=== PATIENT | male | born 1975 | race Caucasian/White ===

== ENCOUNTER 2023-04-22 14:49 | Outpatient (OUT) | payer OTHER, SELFPAY ==
--- NOTE | 2023-04-22 14:54 | PM.CN ---
Consult Note: HPI Data of Consult Patient: known to practice within the last 3 years Requesting Physician: Yesi Caballero NP Primary Care Provider: Av Caro MD Consult Narrative Reason for consult: f/u Narrative: Fabian Melgar a pleasat 47 year old male presents for evlaution of chronic low back and left hip pain. Patient has had success with previous lumbar ESIs and medication therapy. Increase in pain over the last few months and increased more so the past few weeks failing to respond to current medication therapy and HEP/stretching. Patient would like to discuss additional injection therapy today. cc:: CC: Yesi Caballero NP Review of Systems ROS Status of ROS 10 or more systems reviewed and unremarkable except as noted in history and below Musculoskeletal Reports: back pain and joint pain Exam Constitutional Documenting provider has reviewed patient's vital signs: yes Common normals: no apparent distress, oriented x3, healthy appearing, alert and well nourished General appearance: cooperative HENMT Common normals: normocephalic, hearing grossly normal bilaterally and moist oral mucous membranes Head and scalp: normocephalic Eye Common normals: PERRL Pupil: PERRL Neck & C-Spine Common normals: full ROM General: normal visual inspection Chest Common normals: inspection of chest normal Respiratory Common normals: normal respiratory effort, no retractions and no use of accessory muscles Back & Pelvis Lumbar spine/lower back: pain with ROM and straight leg raise positive left Sacroiliac joints: SI joint(s) abnormal Other: left sided intermittent radiculopathy and constant low back pain radiating into buttocks and posterior thigh. has noticed intermittent numbness and weakness to LLE left SIJ tender over PSIS, positive gaenslens, thigh thrust, and fabers manuevers. Neuro Common normals: oriented x3, CN's II-XII intact bilaterally, moves all extremities, no focal motor deficits, no sensory deficits noted and deep tendon reflexes 2+ bilaterally Sensorium/orientation: alert Motor exam: strength 5/5 throughout and no movement abnormalities noted Psych Common normals: mental status grossly normal, thought process normal, cooperative, affect normal, speech normal and activity/motor behavior normal Speech: normal speech Thought process: normal thought process Results Additional Findings Additional findings: I have checked an OARRS report on this patient today and there are no aberrancies noted in the prescribing history.?? A drug screen was completed and reviewed within the last year, and if there has not been a drug screen completed we ordered one today to monitor higher risk, state monitored pain medication use. As part of providing excellent, safe, comprehensive care, the following was completed at our patient's visit: 1. A medication reconciliation and review to ensure accurate knowledge of current/active medications, including asking our patients to inform us about any zbax-vak-vuvpoup medications or herbal remedies/nutritional supplements/alternative remedies. 2. A review to specifically ensure our patients have had annual screening for: elevated body mass index (BMI), tobacco use, screening for depression, and screening for unhealthy alcohol use. When screening is concerning, patients are provided with education and the specific recommendation to discuss the concerning health issue and treatment options with their primary care provider. Assessment and Plan Assessment and Plan (1) Lumbar neuritis: Assessment and Plan: We discussed the risks and benefits of the procedure with the patient, and we are NOT planning on using sedation as outlined in the guidelines from Medicare unless there is a documented reason that sedation would be strongly recommended.?? The procedure will be completed under fluoroscopic guidance. (2) Sacroiliitis: Plan Left L3-4 L4-5 TFESI followed by left SIJ injection two weeks after based on symptom findings and previous xray imaging stop diclofenac, start celebrex 100mg BID for 7 days then celebrex 100mg QD-BID PRN continue HEP and stretching program refill and continue baclofen f/u after injections
== END 2023-04-22 14:50 | disposition home or self-care (01) ==
LOC: PM 14:49
PROVIDERS: PCP Family Medicine; Visit Provider Nurse Practitioner
DX: M54.16 Radiculopathy, lumbar region (principal); M46.1 Sacroiliitis, not elsewhere classified
CPT/HCPCS: G0463

== ENCOUNTER 2023-05-18 07:04 | Day surgery (SDC) | payer OTHER, SELFPAY ==
[2023-05-18 07:26] VITALS: BP 115/68; PULSE 83; RESP 16; TEMP 36.3; O2SAT 100
[2023-05-18 07:47] VITALS: BP 118/67; PULSE 69; RESP 16; O2SAT 99
[2023-05-18] MEDS: BUPIVACAINE HCL 0.25% PF 25 MG/10 ML VIAL 2 ML INJ (07:49)
[2023-05-18] MEDS: IOHEXOL 240 MG/ML - 10 ML VIAL INJ (07:49)
[2023-05-18] MEDS: LIDOCAINE HCL 2% PF 100 MG/5 ML VIAL 3 ML INJ (07:50)
[2023-05-18] MEDS: TRIAMCINOLONE ACETONIDE 40 MG/ML VIAL 80 MG INJ (07:50)
[2023-05-18 07:51] VITALS: BP 111/62; PULSE 66; RESP 16; O2SAT 97
--- NOTE | 2023-05-18 07:51 | P.ON_ITS ---
Date of procedure: 05/18/23 Pre-op diagnosis: Lumbar stenosis with neurogenic claudication Post-op diagnosis: same as pre-op Procedure: Procedure: Left L3-4, L4-5 transforaminal epidural steroid injection Medications: Bupivacaine 0.25% 2cc, kenalog 80mg The patient was seen and examined in the preoperative holding area.? Informed consent was obtained and placed on the chart.? Patient was brought to the medical procedure unit and placed in the prone position where a timeout was completed verifying the correct patient, procedure site, position, and planned special equipment using sterile aseptic technique.? Under direct fluoroscopic visualization a 25-gauge Quincke tipped spinal needle was advanced to the designated neural foramen where contrast dye was injected to show adequate spread.? The needle was inserted at level left L3-4. There was no evidence of vascular or adverse uptake.? Epidural spread was appreciated.? The above- mentioned injectate was then placed in a 1.5 mL aliquot preceded by negative aspiration.? The needle was removed. The needle was inserted and the procedure repeated at level left L4-5.? The surgery site was covered.? Patient was taken to the postprocedural recovery area and monitored for an appropriate length of time before found suitable for discharge in the accompaniment of a responsible adult. Anesthesia: Local Surgeon: Almaz Brooke Pathology: none sent Condition: stable Disposition: no change
== END 2023-05-18 07:56 | disposition home or self-care (01) ==
PROVIDERS: PCP Family Medicine; Visit Provider Anesthesiology
DX: M48.062 Spinal stenosis, lumbar region with neurogenic claudication (principal)
CPT/HCPCS: 64483; 64484; Q9966

== ENCOUNTER 2023-06-01 07:24 | Day surgery (SDC) | payer OTHER, SELFPAY ==
[2023-06-01 07:30] VITALS: BP 113/72; PULSE 72; RESP 16; TEMP 36.2; O2SAT 100
[2023-06-01 08:16] VITALS: BP 111/56; PULSE 62; RESP 18; O2SAT 94
[2023-06-01] MEDS: TRIAMCINOLONE ACETONIDE 40 MG/ML VIAL 80 MG INJ (08:18)
[2023-06-01] MEDS: BUPIVACAINE HCL 0.25% PF 25 MG/10 ML VIAL 2 ML INJ (08:18)
[2023-06-01] MEDS: IOHEXOL 240 MG/ML - 10 ML VIAL INJ (08:18)
[2023-06-01] MEDS: LIDOCAINE HCL 2% PF 100 MG/5 ML VIAL 3 ML INJ (08:18)
--- NOTE | 2023-06-01 08:19 | W.PM.PROCNOT ---
Date of procedure: 06/01/23 Pre-op diagnosis: Left sacroiliitis Post-op diagnosis: same as pre-op Procedure: Procedure: Left block of the nerve innervating the sacroiliac joint Medications: Bupivacaine 0.25% 3cc, kenalog 40mg After informed consent was obtained, the patient was brought to the medical procedure unit and placed in the prone position, when a timeout was completed verifying correct patient, procedure, site, positioning, implant, and/or special equipment.? The skin overlying the area was prepped and draped in standard sterile fashion using alcohol.? A 25-gauge needle was inserted towards the left nerve innervating the sacroiliac joint under direct fluoroscopic imaging.? Needle tip was advanced until the nerve was encountered.? We instilled a total of 3 mL of solution.? Postoperatively needles were removed.? The patient tolerated the procedure well without complication.? The patient reported reduction in pain symptoms postoperatively. Anesthesia: Local Surgeon: Almaz Brooke Pathology: none sent Condition: stable Disposition: no change
[2023-06-01 08:22] VITALS: BP 112/62; PULSE 60; RESP 18; O2SAT 98
== END 2023-06-01 08:24 | disposition home or self-care (01) ==
PROVIDERS: PCP Family Medicine; Visit Provider Anesthesiology
DX: M46.1 Sacroiliitis, not elsewhere classified (principal)
CPT/HCPCS: 27096; 64451; Q9966

== ENCOUNTER 2023-06-17 15:00 | Outpatient (OUT) | payer OTHER, SELFPAY ==
--- NOTE | 2023-06-17 15:21 | P.CN_ITS ---
Consult Note: HPI Data of Consult Patient: known to practice within the last 3 years Requesting Physician: Yesi Caballero NP Primary Care Provider: Av Caro MD Consult Narrative Reason for consult: f/u Narrative: Fabian Melgar a pleasant 47 year old male presents for evaluation and management of low back pain with radiculopathy. Pain 0/10. Feels 95% ongoing pain relief and functional improvement after Left SI nerve blocka nd left L3/4 4/5 TFESI. JERI today 0%. cc:: CC: Yesi Caballero NP Review of Systems ROS Status of ROS 10 or more systems reviewed and unremarkable except as noted in history and below [facility] Medical History (Updated 05/08/23 @ 10:09 by Maggi Puente) Back pain ?M54.9 - Dorsalgia, unspecified (ICD-10) Meds Home Medications and Allergies Home Medications Medication Instructions Recorded Confirmed Type cyclobenzaprine 10 mg tablet 10 mg PO BID 05/18/23 06/01/23 History Allergies Allergy/AdvReac Type Severity Reaction Status Date / Time No Known Drug Allergies Allergy Verified 05/18/23 07:22 Exam Constitutional Documenting provider has reviewed patient's vital signs: yes Common normals: no apparent distress, oriented x3, healthy appearing, alert and well nourished General appearance: cooperative HENMT Common normals: normocephalic, hearing grossly normal bilaterally and moist oral mucous membranes Head and scalp: normocephalic Eye Common normals: PERRL Pupil: PERRL Neck & C-Spine Common normals: full ROM General: normal visual inspection Chest Common normals: inspection of chest normal Respiratory Common normals: normal respiratory effort, no retractions and no use of accessory muscles Back & Pelvis Common normals: no CVA tenderness, thoracic and lumbar spine normal to inspection, no thoracic nor lumbar tenderness and thoraco-lumbar ROM normal Neuro Common normals: oriented x3, CN's II-XII intact bilaterally, moves all extremities, no focal motor deficits, no sensory deficits noted and deep tendon reflexes 2+ bilaterally Sensorium/orientation: alert Motor exam: strength 5/5 throughout and no movement abnormalities noted Psych Common normals: mental status grossly normal, thought process normal, cooperative, affect normal, speech normal and activity/motor behavior normal Speech: normal speech Thought process: normal thought process Assessment and Plan Assessment and Plan (1) Lumbar neuritis: (2) Sacroiliitis: Plan 95% pain relief and functional improvement ongoing f/u as needed
== END 2023-06-17 15:01 | disposition home or self-care (01) ==
PROVIDERS: PCP Family Medicine; Visit Provider Nurse Practitioner
DX: M54.16 Radiculopathy, lumbar region (principal); M46.1 Sacroiliitis, not elsewhere classified
CPT/HCPCS: G0463

== ENCOUNTER 2024-02-03 10:13 | Outpatient (OUT) | payer OTHER, SELFPAY ==
--- OUTSIDE RECORDS SUMMARY | 2024-02-03 10:24 | XMS_ITS | CCD ---
Author Organization [facility] Care Team Providers Care Technician Submarine [employer] Equipment Name Role Phone AIMEE .VANESSA Consulting Unavailable CHILDERS ., DR RUSTY Patel Attending Unavailable CHILDERS ., DR RUSTY Patel Admitting Unavailable HOY ., DR ARTIS Primary Care Unavailable CHILDERS ., DR RUSTY Patel Consulting Unavailable CHILDERS ., DR RUSTY Patel Attending Unavailable CHILDERS ., DR RUSTY Patel Admitting Unavailable HOY ., DR ARTIS Primary Care Unavailable HOY ., DR ARTIS Primary Care Unavailable LAKSHMIPATHY ., ERWIN Admitting Nydia vailable LAKSHMIPATHY ., ERWIN Attending Nydia vailable YU ., VANESSA Consulting Unavailable CHILDERS ., DR RUSTY Patel Attending Unavailable CHILDERS ., DR RUSTY Patel Admitting Unavailable HOY ., DR ARTIS Primary Care Unavailable CHILDERS ., DR RUSTY Patel Admitting Unavailable CHILDERS ., DR RUSTY Patel Consulting Unavailable CHILDERS ., DR RUSTY Patel Attending Unavailable HOY ., DR ARTIS Primary Care Unavailable Ephraim Thapa Consulting Unavailable CHILDERS ., DR RUSTY Patel Attending Unavailable CHILDERS ., DR RUSTY Patel Admitting Unavailable HOY ., DR ARTIS Primary Care Unavailable CHILDERS ., DR RUSTY Patel Consulting Unavailable HOY ., DR ARTIS Primary Care Unavailable EMMA MURO Admitting Unavailable EMMA MURO Attending Unavailable YU .VANESSA Consulting Unavailable CHILDERS ., DR RUSTY Patel Attending Unavailable CHILDERS ., DR RUSTY Paetl Admitting Unavailable HOY ., DR ARTIS Primary Care Unavailable Edwardo LUND, Almaz Palacio Attending Unavailable Edwardo LUND, Almaz Palacio Attending Unavailable Obi KENDRICK Attending Unavailable Steff Blankenship Referring Unavailable Problems Active Problems Problem Classification Problem Date Documented Date Episodic/Chronic Spondylosis; intervertebral disc disorders; other back problems (4 sources) Other spondylosis with radiculopathy, lumbar region; Translations: [OTH SPONDYLS RADICULOPATHY LUMB RGN] Onset: 04-29-2022 Chronic Unclassified (1 source) LOW BACK PAIN, UNSPECIFIED; Translations: [LOW BACK PAIN, UNSPECIFIED] Onset: 09-08-2022 Past or Other Problems Problem Classification Problem Date Documented Da te Episodic/Chronic Other connective tissue disease (1 source) Pain in left leg; Translations: [PAIN IN LEFT LEG] Onset: 05-01-2022 Episodic Residual codes; unclassified (4 sources) Procedure and treatment not carried out due to patient leaving prior to being seen by health care provider; Translations: [PROC AND TX NOT CARRIED OUT PT LEAVE] Onset: 03-29-2022 Episodic Spondylosis; intervertebral disc disorders; other back problems (4 sources) Radiculopathy, lumbar region; Translations: [RADICULOPATHY LUMBAR REGION] Onset: 09-04-2022 Episodic Results Test Name Value Interpretation Reference Range Facil ity Physician Referralon 024 Physician Referral [id number]. 00TIFF Normal [facility] XR LSPINE W_OBLS AND FLEX_EX Ton 04-29-2022 XR LSPINE W_OBLS AND FLEX_EXT EXAMINATION: XR LSPINE W_OBLS AND FLEX_EXT HISTORY: Lumbar radiculopathy , chronic COMPARISON: No relevant comparison available. FINDINGS: BONES: Mild grade 1 retrolisthesis L4 on 5, unchanged between neutral, flexion, and extension positions. Mild degenerative facet arthropathy L4-L5, L5-S1. DISC SPACES: Mild narrowing L4-L5. Moderate narrowing L5-S1. PARASPINOUS: No paraspinous abnormality is seen. OTHER: Negative. IMPRESSION: 1. Mild to moderate degenerative changes of the lower lumbar spine. Electronically authenticated by: EPHRAIM THAPA Date: 2022-04-29 13:15 Normal [facility] XR Finger Righton 03-30-2022 XR Finger Right EXAM: CLINICAL HISTORY: __ FINDINGS: Bone mineralization is normal. No acute fracture, dislocation or significant arthritic changes are seen. No significant joint space effusion is present. Soft tissues are without abnormal calcifications or radiopaque foreign body. No active erosive changes are identified. IMPRESSION: Normal skeletal appearance. 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 Facili ty:[facility] Start: 12-04-2022 ambulatory VANESSA YU . Facility:[facility] Start: 09-04-2022 End: 09-05-2022 ambulatory VANESSA YU . Facility:[facility] Start: 06-05-2022 End: 06-06-2022 ambulatory VANESSA YU . Facility:[facility] Start: 05-13-2022 End: 05-13-[address] RUSTY CHILDERS . Facility:[facility] Start: 04-29-2022 End: 04-30-2022 ambulatory Ephraim Thapa Facility:[facility] Start: 03-29-2022 End: 03-30-[address] STEFF BLANKENSHIP . Facility:[facility] Payers Date Payer Category Payer Unknown [id number] 2023 Unknown 2022 Private Health Insurance 2010 Unknown [id number] 1977 Unknown [id number] .. [id number] 1977 Unknown [id number] 1977 Unknown [id number] ..[id number] 1977 Unknown [id number] ..[id number] 1977 Unknown [id number] ..[id number] 1977 Unknown [id number] 2.16.84 [id number] 1977 Unknown [id number] 2.16.84 [id number] 1977 Unknown [id number] 2.16.84 [id number] 1977 Unknown [id number] 2.16. [id number] 1977 Unknown [id number] 2.16. [id number] 1977 Unknown [id number] 2.16.8 [id number] 1977 Unknown [id number] 2.16.8 [id number] 1959 Private Health Insurance [id number] Consultation note 09-04-2022 Note Date & Type Note Facility 09-04-2022 Note CONSULTATION CONSULTATION DATE: 09/04/2022 HISTORY OF PRESENT ILLNESS: This is a pleasant and active 46-year-old gentleman who returns to the Pain Clinic for a three month follow up for his lower back pain. He was last seen at the end of May, which was also a status post left L5 transforaminal epidural steroid injection. He did get great relief from that and it is generally ongoing. At rest, his pain is 0/10. With physical activity, it increases to 2/10. Prolonged sitting, bending and lifting does aggravate his pain. He does take diclofenac 75 mg daily, which has been greatly beneficial. He does state, in the evening, after being at work and the kids' games, he feels back tightness. 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 He has patchy hypoesthesia to his left leg to the level of the knee. He denies any vasomotor weakness. Patient's REVIEW OF SYSTEMS / PAST MEDICAL HISTORY / ALLERGIES and IMAGES have been reviewed and noted on the chart. PHYSICAL EXAM: VITAL SIGNS: Blood pressure 129/72, heart rate is 85. Temperature is 98. He is 5'11 , weighs 73 kg. GENERAL IMPRESSION: Pleasant, appropriate, in no acute distress. FOCUSED EXAM - BACK: Range of motion is functional in lateral rotation and flexion/extension. Paravertebral muscles are non-spasmodic. Slight tenderness to the left gluteal muscle. Aura's point is non-tender bilaterally. Negative FABERs and compression test. MUSCULOSKELETAL: Motor is 5/5 bilaterally. Patient with good muscle tone. Patient walks unassisted with a stable gait. NEUROLOGICALLY: Patchy hypoesthesia noted along the L5 distribution to the left, just to the level of the knee. Reflexes are +2 bilaterally. DIAGNOSIS: Lower back pain, lumbar radiculitis. PLAN: We will refill his diclofenac 75 mg but will increase it to twice a day. He is instructed to take his second dose around supper time, at the conclusion of his work day. We will refill his baclofen 10 mg q.h.s. and he was highly encouraged to take that nightly. Stretches were demonstrated and recommended as well. We will see the patient in three months' time, unless otherwise indicated. Patient agrees with this plan. [facility] Consultation note 06-05-2022 Note Date & Type Note Facility 06-05-2022 Note CONSULTATION CONSULTATION DATE: 06/05/2022 HISTORY OF PRESENT ILLNESS: This is a 46-year-old male returning to the clinic status post left transforaminal epidural steroid injection at the level of L5 completed on 05/13/2022. The patient states it afforded him 80% relief in he is overall pleased. 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 He does take diclofenac 75 mg b.i.d., which he states does help with the back pain. As the day progresses, he does feel a slight twinge in his left lower side. He describes it as a deep ache. He rates his pain 1/10 today at rest. Patient's REVIEW OF SYSTEMS / PAST MEDICAL HISTORY / ALLERGIES and IMAGES have been reviewed and they are noted on the chart. PHYSICAL EXAM: VITAL SIGNS: Blood pressure 119/65, heart rate is 72. He is 5'11 and weighs 76 kg. GENERAL IMPRESSION: Pleasant, appropriate, no acute distress. FOCUSED EXAM - BACK: Paravertebral muscles are non-spasmodic. Range of motion is functional in lateral rotation and flexion/extension. Mild tenderness to left Aura's point. Negative FABERs and compression test. Slight radiation to the lateral aspect of his left lower extremity, to the mid femur location. MUSCULOSKELETAL: Motor is 5/5. Good muscle tone. Patient walks with a slow, steady gait. NEUROLOGICALLY: Patchy hypoesthesia noted along L5 dermatome on the left lower extremity to the level of the mid thigh. Patellar and Achilles reflexes are +2 bilaterally. DIAGNOSIS: Lumbar radiculitis and lower back pain. PLAN: We will make an addition with baclofen 10 mg q.h.s. today, in addition to maintaining his diclofenac at 75 mg b.i.d. I did recommend magnesium glycinate 400 mg daily as well as continued use with his inversion table. Patient is in agreement with this, and we will see him in three months' time unless otherwise indicated. [facility] Consultation note 04-29-2022 Note Date & Type Note Facility 04-29-2022 Note CONSULTATION CONSULTATION DATE: 04/29/2022 CHIEF COMPLAINT: Low back pain, left leg pain. 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 Over the last 3-4 months, the patient's pain has been gradually increasing; the worst over the last two months. The patient is a very active individual and this is his busy construction season doing deepali, etc. The patient's main complaint is numbness along the left leg, radiating down to his left foot, the middle toes. The patient also has low back pain that radiates into his gluteal region. The patient reports the pain as a 7/10, an achy, throbbing pain. Activities such as standing, walking, transitioning, lifting; a.m. pain is worse compared to p.m., climbing stairs, bending aggravate the patient's pain. The patient had undergone a remote diskectomy in 2005. The patient currently takes ibuprofen 800 mg t.i.d. and also Tylenol on an intermittent basis. The patient's PAST MEDICAL HISTORY / SURGICAL HISTORY / REVIEW OF SYSTEMS are noted on the chart, along with the MEDICATION LIST / ALLERGIES and X-RAY dated 2019 report. The patient is using the inversion table; however, it does not seem to help at present. PHYSICAL EXAMINATION: Upon physical examination, this is a pleasant, cooperative gentleman, who does not appear to be in any acute distress. VITAL SIGNS: Stable at 128/78 with a heart rate of 73. At a height of 5'11 , the patient has an endomorphic structure. BACK: With regards to the patient's low back, extension, compression, direct palpation along the posterior elements on the left hand side aggravate the patient's pain concordant with facet arthropathy, lumbar spondylosis, more prominent on the left hand side compared to the right hand side. This is prominent at the level of L5-S1 and also at the level of L3-4. EXTREMITIES: No pedal edema is noted. MUSCULOSKELETAL: Intact in the lower extremity at 5/5. NEUROLOGICALLY: Hypoesthesia is present along the L5 distribution on the left hand side. PSYCHIATRICALLY: Affect is appropriate. IMPRESSION: Low back pain, left lower extremity pain, lumbar radiculitis L5, lumbar facet arthrosis, spondylosis. PLAN: Given the patient's activity level, we will look to get an x-ray, flexion/extension, of his lumbar spine. The patient will be changed over from ibuprofen to diclofenac 75 mg. The patient will be scheduled for a transforaminal epidural steroid injection on the left hand side at the level of L5. The patient understands and would like to proceed. CC: Steff Blankenship M.D. [facility] Summary Purpose Family History No Family History Records FoundNo Family History Records FoundNo Family History Records FoundNo Family History Records Found Advance Directives No Advanced Directives Records FoundNo Advanced Directives Records FoundNo Advanced Directives Records FoundNo Advanced Directives Records Found Additional Source Comments (unrecognized sect ion and content) No Status Records FoundNo Status Records FoundNo Status Records FoundNo Status Records Found INFORMATION SOURCE (unrecogn ized section and content) DATE CREATED AUTHOR 04/03/2022 [facility] dical Specialist DATE CREATED AUTHOR AUTHOR'S ORGANIZ ATION 12/08/2022 [facility] DATE CREATED AUTHOR AUTHOR'S ORGANIZ ATION 11/01/2023 [facility] DATE CREATED AUTHOR AUTHOR'S ORGANIZ ATION 01/31/2024 [facility] FOR RECORDS PERTAINING TO PATIENTS WHO ARE OR HAVE BEEN ENROLLED IN A CHEMICAL DEPENDENCY/SUBSTANCEABUSE PROGRAM, SOME INFORMATION MAY BE OMITTED. This clinical summary was aggregated from multiple sources. Caution should be exercised in using it in the provision of clinical care. This summary normalizes information from multiple sources, and as a consequence, information in this document may materially change the coding, format and clinical context of patient data. In addition, data may be omitted in some cases. CLINICAL DECISIONS SHOULD BE BASED ON THE PRIMARY CLINICAL RECORDS. [facility] [employer] [facility]. provides no warranty or guarantee of the accuracy or completeness of information in this document.
[2024-02-03 10:59] LABS: Basophils Percent Auto 0.6 % (0.2-2.0); Eosinophils Absolute Auto 0.2 10^3/uL (0.0-0.7); Eosinophils Percent Auto 2.7 % (0.9-7.0); Hematocrit 44.7 % (42.0-54.0); Immature Granulocytes Abs Auto 0.02 10^3/uL (0.00-0.03); Immature Granulocytes Pct Auto 0.3 % (0.0-0.5); Lymphocytes Absolute Auto 1.8 10^3/uL (1.2-3.8); Mean Corpuscular HGB Conc 33.6 g/dL (29.9-35.2); Mean Corpuscular Hemoglobin 30.2 pg (25.9-34.0); Mean Corpuscular Volume 90.1 fL (80.0-94.0); Mean Platelet Volume 11.2 fL (9.5-13.5); Monocytes Absolute Auto 0.4 10^3/uL (0.3-0.8); Monocytes Percent Auto 5.4 % (1.7-12.0); Neutrophils Absolute Auto 4.6 10^3/uL (1.4-6.5); Platelet Count 158 10^3/uL (150-450); Red Blood Count 4.96 10^6/uL (4.70-6.10); Red Cell Distribution Width 12.3 % (11.0-15.0)
[2024-02-03 11:48] LABS: Estimated Average Glucose 108 mg/dL; Glycohemoglobin A1C 5.4 % (4.5-6.2)
[2024-02-03 11:49] LABS: Alanine Aminotransferase 42 U/L (16-63); Albumin Globulin Ratio 1.2; Albumin Level 3.9 g/dL (3.4-5.0); Alkaline Phosphatase 58 U/L (46-116); Anion Gap 12.6; Aspartate Amino Transferase 19 U/L (15-37); BUN Creatinine Ratio 13.6; Bilirubin Total 0.5 mg/dL (0.2-1.0); Calcium 8.6 mg/dL (8.5-10.1); Carbon Dioxide 27.5 mmol/L (21.0-32.0); Chloride 103 mmol/L (98-107); Chol HDL Ratio 3.6; Cholesterol 163 mg/dL (<=200); Estimated GFR (African America >60 (>=60); Estimated GFR (Non-African Ame >60 (>=60); Globulin 3.3 g/dL; Glucose 105 mg/dL (74-106); HDL Cholesterol 45 mg/dL (40-60); LDL Cholesterol Calculated 98.8 mg/dL; Potassium 4.1 mmol/L (3.5-5.1); Sodium 139 mmol/L (136-145); Total Protein 7.2 g/dL (6.4-8.2); Triglycerides 96 mg/dL (<=150); VLDL CHOLESTEROL 19.2 mg/dL
[2024-02-03 14:04] LABS: Prostate Specific Antigen Scrn 0.78 ng/mL (<=4.00)
== END 2024-02-03 10:14 | disposition home or self-care (01) ==
LOC: LAB 10:15
PROVIDERS: PCP Family Medicine; Visit Provider Family Medicine
DX: Z00.00 Encounter for general adult medical examination without abnormal findings (principal)
CPT/HCPCS: 36415; 80053; 80061; 83036; 85025; G0103

== ENCOUNTER 2024-04-20 12:40 | Outpatient (OUT) | payer OTHER, SELFPAY | END 2024-04-20 12:41 | disposition home or self-care (01) | LOC: PST 12:40 | PROVIDERS: PCP Family Medicine; Visit Provider Surgery | DX: Z01.818 Encounter for other preprocedural examination (principal); Z12.11 Encounter for screening for malignant neoplasm of colon; Z80.0 Family history of malignant neoplasm of digestive organs ==

== ENCOUNTER 2024-04-27 07:11 | Day surgery (SDC) | payer OTHER, SELFPAY ==
--- NOTE | 2024-04-27 | OP_ITS ---
OPERATION DATE: 04/27/2024 PREOPERATIVE DIAGNOSIS: Family history of colon cancer, as well as colorectal screening. POSTOPERATIVE DIAGNOSIS: Diminutive 2 mm sigmoid polyp. PROCEDURE: Colonoscopy to cecum with cold forceps polypectomy x1. SURGEON: Fabian De La Paz M.D. ANESTHESIA: Monitored anesthesia care. ESTIMATED BLOOD LOSS: Less than 1 mL. INDICATIONS AND CONSENT: Patient is a 48-year-old male presents for colorectal screening. He does have a family history of colon cancer in his father. Indications, risks, benefits, alternatives of proceeding with colonoscopy were explained extensively to the patient, including the risks of bleeding, colon perforation or anesthetic complications. All of his questions were answered. Informed consent was obtained. PROCEDURE: Patient brought to the operating room, placed in the left lateral decubitus position. Monitored anesthesia care was provided. Rectal exam was performed which revealed no masses or blood. The scope was then inserted into the anal canal. Under direct visualization was advanced. It was advanced to the cecum where cecal markings were clearly identified. There was noted to be a good prep. Upon withdrawal of the scope, mucosal surfaces were carefully examined. There were no mass lesions or inflammatory changes. No significant diverticulosis. Within the sigmoid colon, there was noted to be a 2 mm sessile polyp that was removed with cold biopsy forceps with good hemostasis. The scope was retroflexed in the anal canal. There was no significant hemorrhoidal disease. Scope was then withdrawn. Patient tolerated procedure well, was sent to recovery room in good condition. f/u colonoscopy likely in 5 years, but will depend on pathology report. CC: Christo Simth
--- OUTSIDE RECORDS SUMMARY | 2024-04-27 07:14 | XMS_ITS | CCD ---
Author Organization [facility] Care Team Providers Care Clinical Research Analyst Name Role Phone YU ., VANESSA Consulting Unavailable CHILDERS ., DR RUSTY Patel Attending Unavailable CHILDERS ., DR RUSTY Patel Admitting Unavailable HOY ., DR ARTIS Primary Care Unavailable CHILDERS ., DR RUSTY Patel Consulting Unavailable CHILDERS ., DR RUSTY Patel Attending Unavailable CHILDERS ., DR RUSTY Patel Admitting Unavailable HOY ., DR ARTIS Primary Care Unavailable HOY ., DR ARTIS Primary Care Unavailable LAKSHMIPATHY ., NARFREEDOM Admitting Nydia vailable LAKSHMIPATHY ., ERWIN Attending [...] MURO Admitting Unavailable EMMA MURO Attending Unavailable AIMEE .VANESSA Consulting Unavailable CHILDERS ., DR RUSTY Patel Attending Unavailable CHILDERS ., DR RUSTY Patel Admitting Unavailable HOY ., DR ARTIS Primary Care Unavailable Edwardo LUND, Almaz Palacio Attending Unavailable Edwardo LUND, Almaz Palacio Attending Unavailable Steff Caro Primary Care Physician [phone] Ondina Nelson Unavailable Unavailable Steff Caro Referring Unavailable Obi KENDRICK Attending Unavailable Steff Caro Referring Unavailable Obi KENDRICK Attending Unavailable Problems Active Problems Problem Classification Problem Date Documented Date Episodic/Chronic Allergic reactions (2 sources) Eczema 01-07-2024 Episodic Other screening for suspected conditions (not mental disorders or infectious disease) (1 source) Screening for malignant neoplasm of colon done; Translations: [Encounter for screening for malignant neoplasm of colon] Onset: 03-30-2024 Episodic Residual codes; unclassified (1 source) Family history of malignant neoplasm of digestive organ; Translations: [Family history of malignant neoplasm of digestive organs] Onset: 03-30-2024 Episodic Residual codes; unclassified (1 source) Family history of cancer of colon 03-30-2024 Episodic Spondylosis; intervertebral disc disorders; other back problems (4 sources) Other spondylosis with radiculopathy, lumbar region; Translations: [OTH SPONDYLS RADICULOPATHY LUMB RGN] Onset: 04-29-2022 Chronic Unclassified (1 source) LOW BACK PAIN, UNSPECIFIED; Translations: [LOW BACK PAIN, UNSPECIFIED] Onset: 09-08-2022 Unclassified (1 source) Patient encounter status 03-30-2024 Past or Other Problems Problem Classification Problem [...] Name Value Interpretation Reference Range Facil ity Ambulatory Visit Summaryon 0 03-30-2024 Ambulatory Visit Summary Ambulatory Visit Summary OBI MCEKON :1975 Visit Date:03/30/2024 Ambulatory Visit Instructions Your Care Team Attending Physician - AROLDO LUND, Obi Tirado Primary Care Physician - Vania LUND, Steff Referring Physician - Vania LUND, Steff Procedures Performed Colonoscopy, Lumbar discectomy. Discharge Vitals Heart Rate (Peripheral) 68 Respiratory Rate 16 Blood Pressure 116/64 Height 181 cm Height 71 in Weight 76.4 kg Weight 168.08 lb BMI 23.32 Allergies No Known Allergies Problems Ongoing - Any problem that you are currently receiving treatment for. Eczema Family history of colon cancer in father Patient Survey You may receive a survey via text or e-mail asking about your office visit. Please share your experience with us by completing your survey. We appreciate your feedback and thank you for choosing us for your care. Normal [facility] Physician Referralon 024 Physician Referral [phone] [id number]. 00TIFF Normal [facility] XR LSPINE W_OBLS AND FLEX_EX Ton 04-29-2022 [...] by: EPHRAIM THAPA Date: 2022-04-29 13:15 Normal [facility] XR Finger Righton 03-30-2022 XR Finger Right [...] by MURTAZA VILLASEÑOR on 03/30/2022 1036 Normal [facility] Lipstick Molder Vital Signs Date Time Vital Sign Value Performing Clinician Manav meier 03-30-2024 15:49-0400 Blood Pressure Location Obi KENDRICK [facility] 03-30-2024 15:49-0400 Diastolic blood pressure 64 mm[Hg] Obi KENDRICK [facility] 03-30-2024 15:49-0400 Heart rate 68 /min Obi ARLODO [place] 03-30-2024 15:49-0400 Respiratory rate 16 /min Obi GUGerson [facility] 03-30-2024 15:49-0400 Systolic blood pressure 116 mm[Hg] Obi GUL [facility] Encounters Encounter Date Encounter Type Care Provider Facility Start: 03-30-2024 End: 03-30-2024 ambulatory Steff Caro Facility:[facility] Start: 03-30-2024 End: 03-30-2024 Patient encounter procedure Obi Candida KENDRICK [facility] Start: 02-03-2024 End: 02-03-2024 [facility] Start: 02-03-2024 End: 02-03-2024 Patient encounter procedure Obi KENDRICK [facility] Start: 12-28-2023 ambulatory Steff Caro [facility] Start: 06-01-2023 End: 06-02-2023 ambulatory Almaz Brooke MD Facility: [facility] Start: 05-18-2023 End: 05-19-2023 ambulatory Almaz Brooke MD Facility: [facility] Start: 12-30-[address] STEFF CARO . Facili ty:[facility] Start: 12-04-2022 ambulatory VANESSA YU . Facility:[facility] Start: 09-04-2022 End: 09-05-2022 ambulatory VANESSA YU . Facility:[facility] Start: 06-05-2022 End: 06-06-2022 ambulatory VANESSA YU . Facility:[facility] Start: 05-13-2022 End: 05-13-[address] RUSTY CHILDERS . Facility:[facility] Start: 04-29-2022 End: 04-30-2022 ambulatory Ephraim Sagarcallie Facility:[facility] Start: 03-29-2022 End: 03-30-[address] STEFF CARO . Facility:[facility] Procedures Date Procedure Procedure Detail Performing Clinician Colonoscopy Obi KENDRICK Excision of lumbar i ntervertebral disc Obi KENDRICK Payers Date Payer Category Payer Unknown [id number] 2023 Unknown 2022 Private Health Insurance 2010 Unknown [id number] 1975 Unknown [id number] 2.16.84 [id number] 1975 Unknown [id number] 2.16.84 [id number] 1975 Unknown [id number] 2.16.84 [id number] 1975 Unknown [id number] 2.16.84 0.1.107160.3.579.2.593 1975 Unknown [id number] 2.16.84 0.1.035014.3.579.2.593 1977 Unknown [id number] 2.16.84 0.1.172983.3.579.2.593 1975 Unknown [id number] 2.16.84 0.1.309635.3.579.2.593 1975 Unknown [id number] 2.16.84 0.1.109255.3.579.2.593 1975 Unknown [id number] 2.16. 840.1.292682.3.579.2.196 1975 Unknown [id number] 2.16. 840.1.187714.3.579.2.196 1975 Unknown [id number] 2.16.8 40.1.342270.3.579.2.727 1975 Unknown [id number] 2.16.8 40.1.948875.3.579.2.727 1975 Unknown [id number] 2.16.8 40.1.657624.3.579.2.727 1957 Private Health Insurance [id number] Social History Date Type Detail Facility Tobacco smoking status No Smokin g Status Entered [facility] Sex Assigned At Male [facility] Start: 03-30-2024 Tobacco smoking status Heavy t obacco smoker (finding) [facility] Tobacco smoking status Never [facility] Functional Status Date Assessment Result Facility 03-30-2024 Functional Status N/A [facility] Clinical Note 03-30-2024 Note Date & Type Note Facility 03-30-2024 Note [facility] Surgery Offi ce/Clinic Note Chief Complaint consultation for colonoscopy HPI Staff 48 year old male presents on consultation from Dr. Caro for screening colonoscopy. Denies abdominal or rectal pain. No rectal bleeding or change in bowel habits. Denies nausea or vomiting. No unexplained weight loss. Reports previous colonoscopy completed while in his 30's- reported normal per patient. Father with history of colon cancer, diagnosed age 62. History of Present Illness 48 yo male referred for colorectal screening; denies change in bms or blood in stools, no abd complaints; no abd operations; last colonoscopy over 10 years ago; no asa or NSAID use; gkxe1kt daily; fmhx of colon cancer in patient's father, dx at age 62, no fmhx of IBD. Review of Systems PHQ Score Initial Depression Screen Score: 0 SCORE ROS - Provider Constitutional: no fever, no sweats, no weight loss. Eyes: no glasses, no blurred vision, no visual loss. ENMT: no dentures, no hoarseness, no swallowing difficulties, no hearing loss, no ear infection(s), no nose bleeds. Cardiovascular: normal blood pressure, no chest pain, regular heartbeat, no heart murmur. Respiratory: no shortness of breath, no cough, no asthma, no wheezing. Gastrointestinal: no nausea, no vomiting, no diarrhea, no constipation, no blood in stool, no change in bowel habits, no abdominal pain, no hepatitis. Genitourinary: no kidney stones, no urine infection, no dysuria. Musculoskeletal: no pain, no weakness. Skin: no changing moles, no rash, no skin lumps. Neurologic: no seizures, no epilepsy, no headache. Psychiatric: no emotional or psychiatric problem. Heme/Lymph: no bleeding problems, no anemia, no blood clots, no transfusions. Allergy/Immunologic: no swollen lymph nodes/glands, no IV drug abuse. Other: Additional ROS info: Except as noted in the above Review of Systems and in the History of Present Illness, all other systems have been reviewed and are negative or noncontributory. Physical Exam Vitals & Measurements HR: 68(Peripheral) RR: 16 BP: 116/64 HT: 71 in HT: 181 cm WT: 76.4 kg WT: 168.08 lb BMI: 23.32 HEENT: normal conjunctiva, sclera clear, no scleral icterus, EOM intact, PERRLA, oral mucosa moist without lesions. Neck: trachea midline, no mass, symmetric, no thyromegaly or nodules, no adenopathy Respiratory: lungs CTA, respirations non labored. Cardiovascular: regular rate and rhythm, no murmur, no pedal edema or varicosities. Gastrointestinal: soft, non distended, no tenderness, no masses, no palpable hernias, diastasis recti no, no hepatosplenomegaly; normal bs Lymphatic: no cervical adenopathy, no supraclavicular adenopathy. Musculoskeletal: normal gait, digits and nails without infection, nodes, cyanosis, clubbing. Skin: no rashes, no lesions, no ulcers, no subcutaneous nodules, induration. Psychiatric/Neuro: oriented to time, place, person, judgement normal, affect appropriate for age, insight intact, no focal deficits. Tests: , review of old records completed , Discussed surgical options, risks, and possible complications with patient. Assessment/Plan 1. Family history of colon cancer in father (Z80.0: Family history of malignant neoplasm of digestive organs) plan colonoscopy under anesthesia, informed consent obtained. 2. Screening for malignant neoplasm of colon (Z12.11: Encounter for screening for malignant neoplasm of colon) see #1 Follow-up No qualifying data available Problem List/Past Medical History Ongoing Eczema Family history of colon cancer in father Screening for malignant neoplasm of colon Historical No qualifying data Procedure/Surgical History Colonoscopy, Lumbar discectomy. Medications No active medications Allergies No Known Allergies Social History Alcohol - Denies Alcohol Use, 03/30/2024 Substance Abuse - Denies Substance Abuse, 03/30/2024 Tobacco 10 or more cigarettes (1/2 pack or more)/day in last 30 days Tobacco Use:. Never Smokeless Tobacco Use:. Cigarettes, 1 per day. Started age 15.0 Years. Yes, 03/30/2024 Family History Hypertension: Brother. Primary malignant neoplasm of colon: Father. 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 He has patchy hypoesthesia to [...] indicated. Patient agrees with this plan. [facility] Consultation note 06-05-2022 Note Date & Type [...] three months' time unless otherwise indicated. [facility] Consultation note 04-29-2022 Note Date & Type [...] and would like to proceed. CC: Steff Caro M.D. [facility] Evaluation + Plan note Note Date & Type Note Facility Evaluation + Plan note No data available for this section [facility] Hospital Discharge instructions Note Date & Type Note Facility Hospital Discharge instructions No data available for this section [facility] Progress note Note Date & Type Note Facility Progress note No data available for this section [facility] Summary Purpose Family History No Family History Records FoundNo Family History Records FoundNo Family History Records Found No data available for this section No data available for this section No Family History Records Found Advance Directives No Advanced Directives Records FoundNo Advanced Directives Records FoundNo Advanced Directives Records FoundNo Advanced Directives Records Found Additional Source Comments (unrecognized sect ion and content) No Status Records FoundNo Status Records FoundNo Status Records FoundNo Status Records Found INFORMATION SOURCE (unrecogn ized section and content) DATE CREATED AUTHOR 04/03/2022 [facility] dical Specialist DATE CREATED AUTHOR AUTHOR'S ORGANIZ ATION 12/08/2022 [facility] DATE CREATED AUTHOR AUTHOR'S ORGANIZ ATION 11/01/2023 [facility] DATE CREATED AUTHOR AUTHOR'S ORGANIZ ATION 03/31/2024 Dov Beyer [facility] Patient Care team informatio n (unrecognized section and content) Personnel Name: Steff Caro MD Address: Address: [address] [place] [address] Name: Ondina Nelson Personnel Name: Steff Caro MD Address: Address: [address] [place] [address] Name: Ondina Nelson FOR RECORDS PERTAINING TO PATIENTS WHO ARE [...] BE BASED ON THE PRIMARY CLINICAL RECORDS. [employer] provides no warranty or guarantee of the accuracy or completeness of information in this document.
[2024-04-27 07:15] VITALS: BP 118/78; PULSE 75; TEMP 35.9; O2SAT 98; BMI 19.6; BMI 23.0
[2024-04-27] MEDS: LACTATED RINGER'S SOLUTION 1,000 ML 50 ML IV (07:34)
[2024-04-27 09:20] VITALS: BP 90/45; PULSE 65; TEMP 36.3; O2SAT 95
[2024-04-27 09:35] VITALS: BP 106/69; PULSE 68; O2SAT 96
[2024-04-27 09:50] VITALS: BP 114/90; PULSE 70; O2SAT 97
== END 2024-04-27 09:50 | disposition home or self-care (01) ==
PROVIDERS: PCP Family Medicine; Visit Provider Surgery
PROC: (CPT 811; principal; 2024-04-27 08:20)
DX: Z12.11 Encounter for screening for malignant neoplasm of colon (principal); K63.5 Polyp of colon; Z80.0 Family history of malignant neoplasm of digestive organs; F17.210 Nicotine dependence, cigarettes, uncomplicated
CPT/HCPCS: 45380; 88305; J2704

== ENCOUNTER 2025-04-06 14:49 | Outpatient (OUT) | payer OTHER, SELFPAY ==
--- OUTSIDE RECORDS SUMMARY | 2024-02-03 15:32 | XMS_ITS ---
Author Organization [facility] in [place] Address [address] [place] [address] Care Team Providers Care Bridges Supervisor Name Role Phone Mauro Caro Primary Care Provider STEFF CARO Unavailable [phone] REASON FOR VISIT review labs Encounters Encounter Location Date Provider Diagnosis [facility] [address] [place] [address] 02/03/2024 STEFF CARO Plan Of Treatment No Information Progress Notes * Fabian MELGARDOB:1975 (48 yo M)Acc No.[id number]:02/03/2024 Patient: Fabian SINCLAIR :1975 A ge:48 Y S ex:Male Address:[address] [place] [address], [facility] [address] * true * Date: Generated for Rudy steiner/Jonn/eTransmitting on: 0 04/06/2025 02:53 PM EDT
--- OUTSIDE RECORDS SUMMARY | 2024-02-23 11:55 | XMS_ITS ---
Author Organization The [facility] in [place] Address [address] [place] [address] Care Team Providers Care Biological Technical Officer Name Role Phone Mauro Caro Primary Care Provider [phone] REASON FOR VISIT poison sin Medications Medication SIG (Take, Route, Fr equency, Duration) Notes Start Date End Date Status predniSONE 20 MG 3 tabs Orally Once a day for 5 days 02/23/2024 Active Encounters Encounter Location Date Provider Diagnosis [address] [place] [address] 02/23/2024 Mauro Caro Plan Of Treatment Medication Medication Name Sig Start Date Stop Date Notes predniSONE 20 MG 3 tabs Orally Once a day for 5 days 02/22 Progress Notes * Fabian MELGARDOB:1975 (48 yo M)Acc No.[id number]:02/23/2024 Patient: Fabian SINCLAIR :1975 A ge:48 Y S ex:Male Address:[address] [place] [address], [address] * Refills Start predniSONE Tablet, 20 MG, Orally, 15 Tablet, 3 tabs, Once a day, 5 days, Refills=0 * true * Date: Generated for Rudy steiner/Jonn/eTransmitting on: 0 04/06/2025 02:52 PM EDT
--- OUTSIDE RECORDS SUMMARY | 2025-04-02 09:20 | XMS_ITS | Encounter Summary ---
Author Organization [facility] Address [address] [place] [address] Care Team Providers Care Copy Supervisor Name Role Phone Unavailable Primary Care Provider Unavailabl e Encounter Details Date Type Department Care Team (Late st Contact Info) Description 04/02/2025 9:20 AM EDT Office Visit [facility] [address] [place] [phone] Lisa Roberson NP [address] [place] [address] Lumbar region somatic dysfunction (Primary Dx); Sacroiliitis [...] is scheduled for an appointment with his paint roller winder, which may be performing a steroid shot or ablation in the future. His last visit with the paint roller winder was a year ago, and he has [...] patient's pain, supporting SI joint involvement. The ueuxfjpr-xts-cjarszg test is negative. No signs of upper [...]
--- OUTSIDE RECORDS SUMMARY | 2025-04-06 14:53 | XMS_ITS | Encounter Summary ---
Author Organization [facility] Address [address] [place] [address] Care Team Providers Care Product Tester Fiberglass Name Role Phone Unavailable Primary Care Provider Unavailabl e Encounter Details Date Type Department Care Team (Latest Contact Info) Description 04/02/2025 Travel Social History Tobacco Use Types Packs/Day Years Used Date Smoking Tobacco: Never Assessed Sex and Gender Information Value Date Recorded Sex Assigned at Not on file Legal Sex Male 6:47 PM EDT Gender Identity Not on file Sexual Orientation Not on file documented as of this encounter Plan of Treatment Not on file documented as of this encounter Visit Diagnoses Not on filedocumented in this encounter
--- OUTSIDE RECORDS SUMMARY | 2025-04-06 14:53 | XMS_ITS | Patient Health Record ---
Author Organization [facility] [place] Address [address] [place] [address] Care Team Providers Care Admittance Attendant Name Role Phone Mauro Caro Primary Care Provider Allergies No Known Allergies Reason For Referral No Information Medications Medication SIG (Take, Route, Fr equency, Duration) Notes Start Date End Date Status predniSONE 20 MG 3 tabs Orally Once a day for 5 days 02/23/2024 Active Social History Tobacco Use: Social History Observation Description Date Details (start date - stop date) Current Smoker 08/10/1992 - NA Tobacco Control (Standard) Question Answer Notes Tobacco use: Current smoker When did you start smoking? 08/10/1992 How many cigarettes a day do you smoke? 11-20 Additional Findings: Tobacco user Modera te cigarette smoker (10-19 cigs/day) AUDIT-C (Standard) Question Answer Notes Did you have a drink contain ing alcohol in the past year? Yes How often did you have six o r more drinks on one occasion in the past year? 2 to 4 times a month (2 points) How many drinks did you have on a typical day when you were drinking in the past year? 7 to 9 drinks (3 points) How often did you have a dri nk containing alcohol in the past year? 2 to 4 times a month (2 points) Points 7 Interpretation Positive Problems Problem Type SNOMED Code ICD Code Onset Dates Problem Status W/U Status Risk Notes Problem Well adult (299468140) Well adult (Z00.00) Active confirmed Problem Benign neoplasm of colon (89371811) Sigmoid polyp (D12.5) Active confirmed Problem Benign neoplasm of colon (95770378) Hyperplastic colonic polyp (K63.5) Active confirmed Problem Roberta-Schlatter ' s disease, unspecified laterality (M92.529) Active confirmed Procedures Procedure Date Ordered Date Performed Result Body Sit e Colonoscopy 04/27/2024 Normal Plan Of Treatment Pending Test Test Name Order Date CMP (COMPLETE METABOLIC PANEL) 4 HEMOGLOBIN A1C (GLYCO) 12/25/2023 LIPID PANEL (CHOL/TRIG/HDL/LDL) 12/25/19 24 CBC WITH DIFF 12/25/2023 PSA, PROSTATE-SPECIFIC ANTIGEN 4 Insurance Providers Payer Name Payer Address Payer Phone Subscriber Number Group Number Insured Name Patient Relationship to Insured Coverage Start Date Coverage End Date [employer]MO [employer] PPO [address] [address] [place] [address] [id number] Fabian Melgar Self - patient is the insured Medical (General) History Medical History History ICD Code Eczema L30.9 [place]-Schlatter's disease, unspecified laterality M92.529 Tympanic membrane perforation H72.90 Surgical History Surgery Date(Month/Year) Lumbar Discectomy L5-S1- Dr. Krueger Lumbar Epidural 05/13/2022 Colonoscopy- Dr. De La Paz 04/26/2024
--- OUTSIDE RECORDS SUMMARY | 2025-04-06 14:53 | XMS_ITS | Clinical Summary ---
Author Organization [facility] Address [address] [place] [address] Care Team Providers Care Architect Marine Name Role Phone Unavailable Primary Care Provider Unavailabl e Allergies No known active allergies Medications methylPREDNISolo ne (Medrol Dospak) 4 MG tabletsIndicatio ns:Lumbar region somatic dysfunction Take as directed on package. 21 tablet 5 04/09/20 25 Active baclofen (Lioresal) 10 MG tabletIndication s:Sacroiliitis Take 1 tablet (10 mg) by mouth in the morning and 1 tablet (10 mg) before bedtime. Do all this for 5 days. 10 tablet 5 04/07/20 25 Active Encounters Date Type Department Care Team Description 04/02/2025 9:20 AM EDT Office Visit [facility] [address] [place] [phone] Lisa Roberson, CASSIE Lumbar region somatic dysfunction (Primary Dx); Sacroiliitis 04/02/2025 Travel from Last 3 Months Social History Tobacco Use Types Packs/Day Years Used Date Smoking Tobacco: Never Assessed Sex and Gender Information Value Date Recorded Sex Assigned at Not on file Legal Sex Male 6:47 PM EDT Gender Identity Not on file Sexual Orientation Not on file Last Filed Vital Signs Vital Sign Reading Time Taken Comments Blood Pressure 112/76 04/02/2025 9:28 AM EDT Pulse 73 04/02/2025 9:28 AM EDT Temperature 36.3 C (97.3 F) 04/02/2025 9:28 AM EDT Respiratory Rate - - Oxygen Saturation 97% 04/02/2025 9:28 AM EDT Inhaled Oxygen Concentration - - Weight 73.9 kg (163 lb) 03/30/2022 12:00 PM EDT Height 179.1 cm (5' 10.5 ) 03/30/2022 12:00 PM E DT Body Mass Index 23.06 03/30/2022 12:00 PM EDT Plan of Treatment Not on file Insurance [employer]
--- NOTE | 2025-04-06 15:13 | PM.CN ---
Consult Note: HPI Data of Consult Patient: known to practice within the last 3 years Requesting Physician: Yesi Caballero NP Primary Care Provider: Av Caro MD Consult Narrative Reason for consult: low back and RLE pain Narrative: Fabian Melgar a pleasant 49 year old male presents for evaluation of chronic low back pain > 20 years unresponsive to greater than 6 weeks of provider guided HEP, heat, ice, tylenol, nsaids, and oral steroids. notes pain 8/10 with numbness and stabbing to right leg. pain increasing with twisting, pushing, pulling, lifting, stairs, bending, and activity. denies recent fall/injury. prior lumbar ESIs and SIJ injection provided significant relief greater than 18 months and pt is eager to proceed with interventional therapy. cc:: CC: Yesi Caballero NP Review of Systems ROS Musculoskeletal Reports: back pain, extremity pain and joint pain PFSH PFSH Medical History Eczema ?L30.9 - Dermatitis, unspecified (ICD-10) Back pain ?M54.9 - Dorsalgia, unspecified (ICD-10) Surgical History H/O colonoscopy ?Z98.890 - Other specified postprocedural states (ICD-10) H/O lumbar discectomy ?Z98.890 - Other specified postprocedural states (ICD-10) Family History Other Colon cancer Family history of hypertension Social History Within the past year, how often did you have a drink containing alcohol: 2-4 times a month Smoking status: Current every day smoker Non-prescribed substance use: denies use 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 Highest level of school completed/degree received: high school graduate Meds Home Medications and Allergies Allergies Allergy/AdvReac Type Severity Reaction Status Date / Time No Known Drug Allergies Allergy Verified 04/20/24 12:35 Exam Constitutional Documenting provider has reviewed patient's vital signs: yes Common normals: no apparent distress, oriented x3, healthy appearing, alert and well nourished General appearance: cooperative HENMT Common normals: normocephalic, hearing grossly normal bilaterally and moist oral mucous membranes Head and scalp: normocephalic Eye Common normals: PERRL Pupil: PERRL Neck & C-Spine Common normals: full ROM General: normal visual inspection Chest Common normals: inspection of chest normal Respiratory Common normals: normal respiratory effort, no retractions and no use of accessory muscles Back & Pelvis Lumbar spine/lower back: pain with ROM, lumbar spinal tenderness and straight leg raise positive right Sacroiliac joints: SI joint(s) abnormal Other: right > left positive mercy(patricks), gaenslens, thigh thrust, compression test decreased sensation right L4,5,S1 strength 4/5 in RLE and 5/5 in LLE Neuro Common normals: oriented x3 Sensorium/orientation: alert Psych Common normals: mental status grossly normal, thought process normal, cooperative, affect normal, speech normal and activity/motor behavior normal Speech: normal speech Thought process: normal thought process Results Additional Findings Additional findings: If on a controlled substance or opioids, I have checked an [place] report on this patient and there are no aberrancies noted in the prescribing history.??If on a controlled substance or opioid a drug screen was completed and reviewed within the last year, and if there has not been a drug screen completed we ordered one today to monitor higher risk, state monitored pain medication use. As part of providing excellent, safe, comprehensive care, the following was completed at our patient's visit: 1. A medication reconciliation and review to ensure accurate knowledge of current/active medications, including asking our patients to inform us about any [id number] medications or herbal remedies/nutritional supplements/alternative remedies. 2. A review to specifically ensure our patients have had annual screening for screening for depression, screening for tobacco use, and screening for unhealthy alcohol use. For concerning screenings had a discussion with the patient, provided patient education, and recommended follow-up with primary care provider when appropriate. If patient noted with a risk of falling, they received education on strength, gait, and balance training to prevent future risk of falling. Portions of this note may have been carried over from the previous visit and updated as appropriate. Please note this office utilizes paper charting in addition to the electronic medical record. A list of current medications, vitals, and PMH is available there as the clinical staff outside of myself do not have access to meditech charting during the clinic day operations. As part of providing quality comprehensive care the current medications, vitals, and PMH were reviewed in the paper chart. Assessment and Plan Assessment and Plan (1) Lumbar stenosis with neurogenic claudication: (2) Sacroiliitis: Plan The patient has had over 3 months of moderate to severe low back and right leg pain with functional impairment and inadequate response to conservative care including NSAIDS (unless there are contraindication such as concurrent blood thinners), multiple oral or topical pain medications, and home exercise program/physical therapy.? Patient has completed >6 weeks of guided home exercise program and/or formal physical therapy program without relief of their symptoms.? The Oswestry Disability Index was completed, and the patient scored a 46%.? The patient noted the following:?? moderate to severe pain impacting ADLs, standing, walking, sleeping, social life, travel update lumbar mri without contrast to assess lumbar stenosis with NC dc otc nsaids, restart celebrex 100mg bid prn pain with food continue baclofen 10mg tid prn pain/spasms risks vs benefits reviewed f/u to review MRI and discuss ALEX
--- OUTSIDE RECORDS SUMMARY | 2025-04-06 15:25 | XMS_ITS | CCD ---
Author Organization [facility] CliniSyid Care Team Providers Care Stenotypist Name Role Phone YU ., VANESSA Consulting [...] DR ARTIS Primary Care Unavailable LAKSHMIPATHY ., NARENDCHENATH Admitting Nydia vailable LAKSHMIPATHY ., NARFREEDOM Attending Nydia vailable YU ., VANESSA Consulting [...] Admitting Unavailable EMMA MURO Attending Unavailable YU ., VANESSA Consulting Unavailable CHILDERS ., DR RUSTY Patel Attending Unavailable CHILDERS ., DR RUSTY Patel Admitting Unavailable HOY ., DR ARTIS Primary Care Unavailable Edwardo LUND, Almaz Palacio Attending Unavailable Edwardo LUND, Almaz Palacio Attending Unavailable Steff Caro Primary Care Physician Ondina Nelson Unavailable Unavailable MD Steff Caro Primary Care Provider [phone] MD Obi De La Paz Attending Provider Steff Caro Primary Care Unavailable Obi De La Paz Attending Unavailable Obi De La Paz Admitting Unavailable Obi DE LA PAZ Attending Unavailable Steff Caro Referring Unavailable NILObi Nieto Attending Unavailable Obi DE LA PAZ Attending Unavailable Steff Caro Referring Unavailable Obi DE LA PAZ Attending Unavailable LISA GARCIA Attending Unavailable Unavailable Primary Care Provider Unavailabl e Medications Current Medications Medication Drug Class(es) Dates Sig (Normalized) Sig (Original) acetaminophen 325 mg / HYDROcodone bitartrate 5 mg oral tablet (1 source) Opioid Agonist Start: 9 take 1 tablet by mouth every six hours Hydrocodone-Acetamino phen ([place]) 5-325 mg tablet Active 1 TAB PO Q6H 10 March 29, 2019 baclofen 10 mg oral tablet (2 sources) gamma-Aminobutyric Acid-ergic Agonist Start: 5 End: 5 take 1 tablet by mouth in the morning baclofen (Lioresal) 10 MG tablet Indications: Sacroiliitis Take 1 tablet (10 mg) by mouth in the morning and 1 tablet (10 mg) before bedtime. Do all this for 5 days. 10 tablet 04/02/2025 04/07/2025 Active cyclobenzaprine hydrochloride 10 mg oral tablet (1 source) Muscle Relaxant Start: 9 take 10 mg by mouth three times daily Cyclobenzaprine Active 10 MG PO Three times daily March 29, 2019 12:00am methylPREDNISolone (2 sources) Corticosteroid Start: 5 End: 5 methylPREDNISolone (Medrol Dospak) 4 MG tablets Indications: Lumbar region somatic dysfunction Take as directed on package. 21 tablet 04/02/2025 04/09/2025 Active naproxen 500 mg oral tablet (1 source) Nonsteroidal Anti-inflammatory Drug Start: 9 take 1 tablet by mouth twice daily Naproxen (Naprosyn) 500 mg tablet Active 500 MG PO Twice daily March 29, 2019 12:00am predniSONE 20 mg oral tablet (1 source) Start: 9 take 60 mg by mouth once daily Prednisone Active 60 MG PO Daily March 29, 2019 12:00am Problems Active Problems Problem Classification Problem Date Documented Da te Episodic/Chronic Allergic reactions (3 sources) Eczema 01-07-2024 Episodic Other bone disease and musculoskeletal deformities (2 sources) Somatic dysfunction of lumbar region; Translations: [Segmental and somatic dysfunction of lumbar region] 04-02-2025 Episodic Other screening for suspected conditions (not mental disorders or infectious disease) (1 source) Screening for malignant neoplasm of colon done; Translations: [Encounter for screening for malignant neoplasm of colon] Onset: 03-30-2024 Episodic Residual codes; unclassified (2 sources) Family history of malignant neoplasm of digestive organ; Translations: [Family history of malignant neoplasm of digestive organs] Onset: 03-30-2024 Episodic Residual codes; unclassified (2 sources) Family history of cancer of colon 03-30-2024 Episodic Spondylosis; intervertebral disc disorders; other back problems (6 sources) Other spondylosis with radiculopathy, lumbar region; Translations: [Inflammation of sacroiliac joint] Onset: 04-29-2022 Chronic Spondylosis; intervertebral disc disorders; other back problems (5 sources) Radiculopathy, lumbar region; Translations: [Sciatica] Onset: 09-04-2022 Episodic Unclassified (1 source) LOW BACK PAIN, UNSPECIFIED; Translations: [LOW BACK PAIN, UNSPECIFIED] Onset: 09-08-2022 Unclassified (2 sources) Patient encounter status 03-30-2024 Past or Other [...] CARRIED OUT PT LEAVE] Onset: 03-29-2022 Episodic Results Test Name Value Interpretation Reference Range Facil ity Ambulatory Visit Summaryon 1 Ambulatory Visit Summary Ambulatory Visit Summary OBI MELGAR :1975 Visit Date:05/11/2024 Ambulatory Visit Instructions Your Care Team Attending Physician - AROLDO LUND, Obi Tirado Primary Care Physician - Vania LUND, Steff Smith Performed Colonoscopy (04/27/2024), Colonoscopy, Lumbar discectomy. Allergies No Known Allergies Problems Ongoing - Any problem that you are currently receiving treatment for. Eczema Family history of colon cancer in father Screening for malignant neoplasm of colon Patient Survey You may receive a survey via text or e-mail asking about your office visit. Please share your experience with us by completing your survey. We appreciate your feedback and thank you for choosing us for your care. Jose Guadalupe [facility] General Surgery Office/Clini c Noteon 05-11-2024 General Surgery Office/Clinic Note General Surgery Office/Clinic Note Chief Complaint post operative follow up HPI Staff 14 day post operative follow up post colonoscopy with sigmoid polypectomy. History of Present Illness f/o colonoscopy with removal of small hyperplastic sigmoid colon polyp; doing well; denies abd pain or blood in stools. Review of Systems ROS - Provider Constitutional: no fever, no [...] been reviewed and are negative or noncontributory. Assessment/Plan 1. Family history of colon cancer in father (Z80.0: Family history of malignant neoplasm of digestive organs) recommend surveillance colonoscopy in 5 years; call sooner if problems/questions. Follow-up No qualifying data available Problem List/Past Medical History Ongoing Eczema Family history of colon cancer in father Screening for malignant neoplasm of colon Historical No qualifying data Procedure/Surgical History Colonoscopy (04/27/2024), Colonoscopy, Lumbar discectomy. Medications No active medications [...] Brother. Primary malignant neoplasm of colon: Father. Normal [facility] Comment on above: Result Comment: Elec tronically Signed By: AROLDO LUND, Obi Taylor.br\Date and Time Signed: 05/11/24 16:14 EDT Reminderson 05-06-2024 Reminders Reminders From: Jud Holden LPN To: N - Clinical; Sent: 05/06/2024 08:33:28 EDT Show up: 03/27/2029 07:00:00 EDT Subject: colonoscopy recall Due Date/Time: 04/27/2029 07:00:00 EDT Reminder/Recall Patient due for surveillance colonoscopy 04/27/2029 due to family history of colon cancer. Normal [facility] Mario Alberto 04-27-2024 L Specimen: [id number] Received: 04/28/24 Status: SALOME Pepper Num: [id number] Spec Type: Surgical Subm Dr: Obi De La Paz MD FACS Tissues: A Colon Biopsy (SIGMOID POLYP) Procedures: HE/2, Gross/Micro L4 Age/ Patient Sex Location Account Attending Physician Obi Melgar 48/M LABELL [id number] Obi De La Paz MD FACS SPEC NUM: [id number] RECD: 04/28/24 STATUS: SALOME REMilana NUM: [id number] MARIAMA: 04/27/[address]: Obi De La Paz MD FACS ENTERED: 04/28/[address] [facility] DR: SPEC TYPE: Surgical DEPT: SÁNCHEZ SIMMONS ENTERED BY: [id number] RECV BY: [id number] ORDERED: HE/2, Gross/Micro L4 ORDERED: HE/2, Gross/Micro L4 Pathological Diagnosis Sigmoid polyp: Detached fragments of hyperplastic colonic mucosa consistent with hyperplastic polyp. Clinical Information Sigmoid polyp Gross Description The specimen was received in formalin with the patient's name and sigmoid polyp and consists of a single burgos portion of soft tissue measuring 0.2 cm in greatest dimension. The specimen is entirely submitted in cassette A1. CPT Codes 88 305 -------- -------- Specimen: [id number] Received: 04/28/24 Status: SALOME Pepper Num: [id number] Spec Type: Surgical Subm Dr: Obi De La Paz MD FACS Tissues: A Colon Biopsy (SIGMOID POLYP) Procedures: HE/Alfreda, Gross/Micro L4 -------- Patient: Obi Melgar [id number] (Continued) -------- Signed (signature on file) Oscar Diaz MD 05/03/24 1554 Normal [facility] Ambulatory Visit Summaryon 0 03-30-2024 Ambulatory Visit Summary Ambulatory Visit Summary OBI MELGAR :1975 Visit Date:03/30/2024 Ambulatory Visit Instructions Your [...] for choosing us for your care. Normal [facility] Physician Referralon 024 Physician Referral [phone] [id number]. [id number] Normal [facility] XR LSPINE W_OBLS AND FLEX_EX Ton [...] by: EPHRAIM THAPA Date: 2022-04-29 13:15 Normal [facility] XR Finger Righton 03-30-2022 XR Finger [...] by MURTAZA VILLASEÑOR on 03/30/2022 1036 Normal [facility] Specialist Vital Signs Date Time Vital Sign Value Performing Clinician Facility 04-02-2025 09:28-0400 Body temperature 97.3 [degF] Lisa Garcia MANUFACTURING PLANNER Work Phone: [facility] 04-02-2025 09:28-0400 Diastolic blood pressure 76 mm[Hg] Lisa Amezcuachol MANUFACTURING PLANNER Work Phone: [facility] 04-02-2025 09:28-0400 Heart rate 73 /min Lisa Amezcuachol MANUFACTURING PLANNER Work Phone: [facility] 04-02-2025 09:28-0400 SaO2% (BldA) [Mass fraction] 97 % Lisa Amezcuachol MANUFACTURING PLANNER Work Phone: [facility] 04-02-2025 09:28-0400 Systolic blood pressure 112 mm[Hg] Lisa Amezcuachol MANUFACTURING PLANNER Work Phone: [facility] 03-30-2024 15:49-0400 Blood Pressure Location Obi GUL [facility] 03-30-2024 15:49-0400 Diastolic blood pressure 64 mm[Hg] Obi NILL [facility] 03-30-2024 15:49-0400 Heart rate 68 /min Obi NILL [facility] 03-30-2024 15:49-0400 Respiratory rate 16 /min Obi NILL [facility] 03-30-2024 15:49-0400 Systolic blood pressure 116 mm[Hg] Obi NILL [facility] Encounters Encounter Date Encounter Type Care Provider Facility Start: 04-02-2025 End: 04-02-2025 ambulatory LISA GARCIA Not Available Start: 04-02-2025 End: 04-02-2025 Office outpatient new 45 minutes Lisa Garcia MANUFACTURING PLANNER Work Phone: [facility] Comment on above: Lumbar region somati c dysfunction (Primary Dx); Sacroiliitis Start: 05-11-2024 End: 05-11-2024 ambulatory Obi R NILL Facility: [facility] Start: 05-11-2024 End: 05-11-2024 Patient encounter procedure Obi R NILL [facility] Start: 04-27-2024 End: 04-27-2024 ambulatory MD Steff Caro Work Phone: [facility] Work Phone: Start: 04-27-2024 End: 04-27-2024 Departed Referred MD Steff Caro Work Phone: [facility] Start: 04-27-2024 End: 04-27-2024 ambulatory Obi R NILL Facility:CD:[id number] Start: 03-30-2024 End: 03-30-2024 ambulatory Obi R NILL Facility: [place] Start: 03-30-2024 End: 03-30-2024 Patient encounter procedure Obi R NILL [facility] [place] Start: 02-03-2024 End: 02-03-2024 ambulatory Obi R NILL Facility: [facility] Start: 02-03-2024 End: 02-03-2024 Patient encounter procedure Obi R NILL [facility] [place] Start: 12-28-2023 ambulatory Obi NILL Facility:[facility] Start: 06-01-2023 End: 06-02-2023 ambulatory Almaz Brooke MD Facility:[facility] Start: 05-18-2023 End: 05-19-2023 ambulatory Almaz Brooke MD Facility:[facility] [place] Start: 12-30-[address] STEFF CARO . Facili ty:[facility] Start: 12-04-2022 ambulatory VANESSA YU . Facility:[facility] Start: 09-04-2022 End: 09-05-2022 ambulatory VANESSA YU . Facility:[facility] Start: 06-05-2022 End: 06-06-2022 ambulatory VANESSA AIMEE . Facility:[facility] Start: 05-13-2022 End: 05-13-[address] RUSTY CHILDERS . Facility:[facility] Start: 04-29-2022 End: 04-30-2022 ambulatory Ephraim Thapa Facility:[facility] Start: 03-29-2022 End: 03-30-[address] STEFF CARO . Facility:[facility] Procedures Date Procedure Procedure Detail Performing Clinician Start: 04-27-2024 Colonoscopy Obi ADAMS LL Colonoscopy Obi NILL Excision of lumbar intervertebral disc Obi DE LA PAZ Payers Date Payer Category Payer Self-pay [id number] 2023 Unknown [id number] 2023 Unknown 2022 Private Health Insurance 2010 Unknown [id number] 1975 Unknown [id number] 1975 Unknown [id number] .840.1.825640.3.579.2.59 1977 Unknown [id number] 2.840.1.274611.3.579.2.59 1977 Unknown [id number] 2.840.1.199889.3.579.2.593 1977 Unknown [id number] .16.840.1.954393.3.579.2.593 1977 Unknown [id number] 2.16.840.1.862789.3.579.2.593 1977 Unknown [id number] 2.16.840.1.796035.3.579.2.593 1977 Unknown [id number] 2.16.840.1.524986.3.579.2.593 1977 Unknown [id number] 2.16.840.1.415435.3.579.2.196 1977 Unknown [id number] 2.16.840.1.240043.3.579.2.196 1977 Unknown [id number] 2.16.840.1.421240.3.579.2.727 1977 Unknown [id number] 2.16.840.1.607979.3.579.2.727 1977 Unknown [id number] 2.16.840.1.842781.3.579.2.727 1977 Unknown [id number] 2.16.840.1.855299.3.579.2.727 1977 Unknown [id number] 2.16.840.1.515572.3.579.2.727 1977 Unknown [id number] 2.16.840.1.878912.3.579.2.1259 1959 Private Health Insurance [id number] Private Health Insurance [facility] [id number] Unknown [id number] 2.16.840.1.812900.3.579.2.531 Social History Date Type Detail Facility Tobacco smoking status [facility] Sex Assigned At Male [facility] Start: 03-30-2024 Tobacco smoking status Heavy tobacco smoker (finding) [facility] Tobacco smoking status Never [facility] Start: 03-29-2019 Tobacco smoking status NHIS Smoker (finding) [facility] Start: 1975 Sex Assigned At Male [facility] Tobacco smoking status NHIS Tobacco smoking consumption unknown [facility] Start: 1975 Sex assigned at Not on file [facility] Functional Status Date Assessment Result Facility 03-30-2024 Functional Status N/A [facility] History of Present illness Narrative 04-02-2025 Lisa Garcia, MANUFACTURING PLANNER - 04/02/2025 9:20 AM EDT Note Date & Type Note Facility 04-02-2025 History of Presen t illness Narrative Images from the original note were not included. HPI: Historian of HPI: patient Obi Melgar is a 49 y.o. male who presents today to the Urgent Care with the following complaints and denials due lower right-sided which has been [...] scheduled for an appointment with his painter chassis, which may be performing a steroid shot or ablation in the future. His last visit with the painter chassis was a year ago, and he has [...] 0928 BP: 112/76 Pulse: 73 Temp: 97.3 F SpO2: 97% Physical Exam Constitutional: Appearance: Normal [...] right sacroiliac joint, with associated lumbar paraspinal muscle tightness and cramping, but no midline spinal tenderness. [...] patient's pain, supporting SI joint involvement. The ynedojil-eba-ovbjbzk test is negative. No signs of upper [...] (Medrol Dosepak) for systemic inflammatory relief and baclofen for muscle relaxation. -Avoid NSAID use while on steroids. -He is advised to follow up with pain management for further evaluation and potential nerve block or steroid injections. - A Medrol Dosepak and baclofen will be prescribed to manage the inflammation and pain until he gets in with pain management. documented in this encounter [facility] Clinical Note 03-30-2024 Note Date & Type Note Facility 03-30-2024 Note General Surgery Offi ce/Clinic Note Chief Complaint consultation [...] years ago; no asa or NSAID use; iolj6up daily; fmhx of colon cancer in patient's [...] Brother. Primary malignant neoplasm of colon: Father. [facility] Comment on above: Result Comment: Elec tronically Signed By: AROLDO LUND, Obi Sears\Date and Time Signed: 03/30/24 20:25 EDT Consultation [...] evening, after being at work and the [employer] games, he feels back tightness. 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 He has patchy hypoesthesia to [...] indicated. Patient agrees with this plan. [facility] Consultation note 06-05-2022 Note Date & [...] three months' time unless otherwise indicated. [facility] Consultation note 04-29-2022 Note Date & [...] to proceed. CC: Steff Caro M.D. [facility] Evaluation + Plan note Note Date & Type Note Facility Evaluation + Plan note No data available for this section [facility] Evaluation note Note Date & Type Note Facility Evaluation note No assessment information availa [facility] Work Phone: Evaluation note Note Date & Type Note Facility Evaluation note Diagnosis Lumbar region somatic dysfunction- Primary Nonallopathic lesion of lumbar region, not elsewhere classified Sacroiliitis Sacroiliitis, not elsewhere classified documented in this encounter [facility] Hospital Discharge instructions Note Date & Type Note Facility Hospital Discharge instructions No data available for this section [facility] Progress note Note Date & Type Note Facility Progress note No data available for this section [facility] Summary Purpose Family History No Family History Records FoundNo Family History Records FoundNo Family History Records Found No data available for this section No data available for this section No Family History Records FoundNo Family History Records Found No data available for this section No Family History Records Found Advance Directives Advance Directive Response Recorded Date/ Time Advance Directives No March 29, 2019 3:13pm Additional Source Comments (unrecognized sect ion and content) No Status Records FoundNo Status Records FoundNo Status Records FoundNo Status Records FoundNo Status Records FoundNo Status Records Found INFORMATION SOURCE (unrecogn ized section and content) DATE CREATED AUTHOR 04/03/2022 [facility] DATE CREATED AUTHOR AUTHOR'S ORGANIZ ATION 12/08/2022 [facility] DATE CREATED AUTHOR AUTHOR'S ORGANIZ ATION 11/01/2023 [facility] DATE CREATED AUTHOR AUTHOR'S ORGANIZ ATION 05/06/2024 [facility] DATE CREATED AUTHOR AUTHOR'S ORGANIZ ATION 05/13/2024 [facility] DATE CREATED AUTHOR AUTHOR'S ORGANIZ ATION 04/03/2025 [facility] EPIC Patient Care team informatio n (unrecognized section and content) Team Status: Active Member Role Status Dates Steff Caro MD Primary Care Provider Active Team Status: Inactive Member Role Status Dates Steff Caro MD Primary Care Provider Active Start: April 27, 2024 End: April 27, 2024 Obi De La Paz MD [facility] Attending Provider Active Start: April 27, 2024 End: April 27, 2024 Goals (unrecognized section and content) Goals may be documented in a n alternate section FOR RECORDS PERTAINING TO PATIENTS WHO ARE [...] BE BASED ON THE PRIMARY CLINICAL RECORDS. [employer] provides no warranty or guarantee of the accuracy or completeness of information in this document.
== END 2025-04-06 14:50 | disposition home or self-care (01) ==
LOC: PM 14:51
PROVIDERS: PCP Family Medicine; Visit Provider Nurse Practitioner
DX: M48.062 Spinal stenosis, lumbar region with neurogenic claudication (principal); M46.1 Sacroiliitis, not elsewhere classified
CPT/HCPCS: G0463

== ENCOUNTER 2025-04-14 13:15 | Outpatient (OUT) | payer OTHER, SELFPAY ==
--- OUTSIDE RECORDS SUMMARY | 2024-02-03 15:32 | XMS_ITS ---
Author Organization The [facility] in [place] Address [address] [place] [address] Care Team Providers Care Lead Caster Helper Name Role Phone Mauro Caro Primary Care Provider STEFF CARO Unavailable [phone] REASON FOR VISIT review labs Encounters Encounter Location Date Provider Diagnosis [facility] [address] [place] [address] 02/03/2024 STEFF CARO Plan Of Treatment No Information Progress Notes * Fabian MELGARDOB:1975 (48 yo M)Acc No.[id number]:02/03/2024 Patient: Fabian SINCLAIR :1975 A ge:48 Y S ex:Male Address:[address] [place] [address], [facility] [address] * true * Date: Generated for Rudy steiner/Jonn/eTransmitting on: 0 04/14/2025 01:21 PM EDT
--- OUTSIDE RECORDS SUMMARY | 2024-02-23 11:55 | XMS_ITS ---
Author Organization The [facility] in [place] Address [address] [place] [address] Care Team Providers Care Customer Records Division Supervisor Name Role Phone Mauro Caro Primary Care Provider REASON FOR VISIT poison sin Medications Medication SIG (Take, Route, Fr equency, Duration) Notes Start Date End Date Status predniSONE 20 MG 3 tabs Orally Once a day for 5 days 02/23/2024 Active Encounters Encounter Location Date Provider Diagnosis [address] [place] [address] 02/23/2024 Mauro Caro Plan Of Treatment Medication Medication Name Sig Start Date Stop Date Notes predniSONE 20 MG 3 tabs Orally Once a day for 5 days 02/22 Progress Notes * Fabian MELGARDOB:1975 (48 yo M)Acc No.[id number]:02/23/2024 Patient: Fabian SINCLAIR :1975 A ge:48 Y S ex:Male Address:[address] [place] [address], [address] * Refills Start predniSONE Tablet, 20 MG, Orally, 15 Tablet, 3 tabs, Once a day, 5 days, Refills=0 * true * Date: Generated for Rudy steiner/Jonn/eTransmitting on: 0 04/14/2025 01:20 PM EDT
--- OUTSIDE RECORDS SUMMARY | 2025-04-02 09:20 | XMS_ITS | Encounter Summary ---
Author Organization [facility] Address [address] [place] [address] Care Team Providers Care Supreme Court Judge Name Role Phone Unavailable Primary Care Provider Unavailabl e Encounter Details Date Type Department Care Team (Late st Contact Info) Description 04/02/2025 9:20 AM EDT Office Visit [facility] [address] [place] [phone] Lisa Roberson NP [address] [place] [address] Lumbar region somatic dysfunction (Primary Dx); Sacroiliitis Social History Tobacco Use Types Packs/Day Years Used Date Smoking Tobacco: Never Assessed Sex and Gender Information Value Date Recorded Sex Assigned at Not on file Legal Sex Male 6:47 PM EDT Gender Identity Not on file Sexual Orientation Not on file documented as of this encounter Last Filed Vital Signs Vital Sign Reading Time Taken Comments Blood Pressure 112/76 04/02/2025 9:28 AM EDT Pulse 73 04/02/2025 9:28 AM EDT Temperature 36.3 C (97.3 F) 04/02/2025 9:28 AM EDT Respiratory Rate - - Oxygen Saturation 97% 04/02/2025 9:28 AM EDT Inhaled Oxygen Concentration - - Weight - - Height - - Body Mass Index - - documented in this encounter Progress Notes * Lisa Roberson NP - 04/02/2025 9:20 AM EDT Images from the original note were not included. HPI: Historian of HPI: patient Fabian Melgar is a 49 y.o. male who presents today to the Urgent Care with the following complaintsand denials due lower right-sided which has been present for 1 week(s). C/O Denies Symptom Comments [] [x] swelling [] [x] ecchymosis [] [x] erythema [] [x] tingling [x] [] numbness [x] [] Pain radiation [x] [] Weakness [] [x] Decreased ROM [] [x] Trauma Additional Comments: pt has taken ibuprofen OTC medication without relief Pt denies heat application to the affected area Pt denies cold application to the affected area Pt has a history of low back pain and a previous back surgery. Pt has a flare up from his sciatica on the right side. Pt states his right leg is numb from his right hip to his right foot. Pt states he has an appt this with pain management. Pt denies any UTI symptoms. Pt was on a muscle relaxer (states the name begins with a B) and it helped. History of Present Illness He is experiencing issues with his back, specifically he thinks its a pinched sciatic nerve. This issue has been ongoing for a week, and he is seeking relief. He is scheduled for an appointment with his painter bottom, which may be performing a steroid shot or ablation in the future. His last visit with the painter bottom was a year ago, and he has an appointment on this coming . He has been using ibuprofen for pain management, but it has not been effective. He finds that staying active helps alleviate the pain, but sitting still exacerbates it. He has previously used baclofen, a muscle relaxer, which provided some relief. Currently, he does not have any baclofen left. ROS: A complete system ROS was performed and negative aside from the pertinent positives noted in the HPI and PE. Current Outpatient Medications Medication Instructions baclofen (LIORESAL) 10 mg, Oral, 2 times daily methylPREDNISolone (Medrol Dospak) 4 MG tablets Take as directed on package. Vitals: 04/02/25 0928 BP: 112/76 Pulse: 73 Temp: 97.3 ??F SpO2: 97% Physical Exam Constitutional: Appearance: Normal appearance. HENT: Head: Normocephalic and atraumatic. Mouth/Throat: Mouth: Mucous membranes are moist. Eyes: Pupils: Pupils are equal, round, and reactive to light. Cardiovascular: Rate and Rhythm: Normal rate and regular rhythm. Pulmonary: Effort: Pulmonary effort is normal. Breath sounds: Normal breath sounds. Musculoskeletal: Cervical back: Normal range of motion. Comments: Inspection of the lumbar spine reveals no deformity, swelling, or erythema. Palpation demonstrates focal tenderness over the right sacroiliac joint, with associated lumbar paraspinal muscletightness and cramping, but no midline spinal tenderness. Lumbar range of motion is full, though pain is elicited with flexion, extension, and bilateral lateral flexion. Neurologic examination reveals normal strength, sensation, and reflexes in the lower extremities, with no evidence of focal motor or sensory deficit. Gait is normal. Provocative maneuvers for SI joint dysfunction, including direct palpation and stress over the right SI joint, reproduce the patient's pain, supporting SI joint involvement. The xoejxrhz-yqw-[id number] test is negative. No signs of upper motor neuron lesion or red flag findings are present. Neurological: Mental Status: He is alert. Psychiatric: Behavior: Behavior is cooperative. Diagnosis Plan 1. Lumbar region somatic dysfunction methylPREDNISolone (Medrol Dospak) 4 MG tablets 2. Sacroiliitis baclofen (Lioresal) 10 MG tablet Assessment & Plan 1. Back pain: - He reports a flare-up of his sciatic nerve pain, which has been ongoing for a week. - Discussed the use of oral steroids (Medrol Dosepak) for systemic inflammatory relief and baclofenfor muscle relaxation. -Avoid NSAID use while on steroids. -He is advised to follow up with pain management for further evaluation and potential nerve block or steroid injections. - A Medrol Dosepak and baclofen will be prescribed to manage the inflammation and pain until he gets in with pain management. documented in this encounter Plan of Treatment Not on file documented as of this encounter Visit Diagnoses Diagnosis Lumbar region somatic dysfunction- Primary Nonallopathic lesion of lumbar region, not elsewhere classified Sacroiliitis Sacroiliitis, not elsewhere classified documented in this encounter
--- OUTSIDE RECORDS SUMMARY | 2025-04-14 13:21 | XMS_ITS | Clinical Summary ---
Author Organization [facility] Healthcare Address [address] [place] [address] Care Team Providers Care Feed Research Technician Name Role Phone Unavailable Primary Care Provider Unavailabl e Allergies No known active allergies Medications baclofen (Lioresal) 10 MG tabletIndication s:Sacroiliitis Take 1 tablet (10 mg) by mouth in the morning and 1 tablet (10 mg) before bedtime. Do all this for 5 days. 10 tablet 5 Active methylPREDNISolo ne (Medrol Dospak) 4 MG tabletsIndicatio ns:Lumbar region somatic dysfunction Take as directed on package. 21 tablet 5 04/09/20 25 Encounters Date Type Department Care Team Description 04/02/2025 9:20 AM EDT [facility] [address] [facility] [address] [place] [id number] Lisa Roberson NP Lumbar region somatic dysfunction (Primary Dx); Sacroiliitis [...] Plan of Treatment Not on file Insurance [facility] [address] [phone] [employer]
--- OUTSIDE RECORDS SUMMARY | 2025-04-14 13:21 | XMS_ITS | Encounter Summary ---
Author Organization [facility] Address [address] [place] [address] Care Team Providers Care Personal Investment Adviser Name Role Phone Unavailable Primary Care Provider [...]
--- OUTSIDE RECORDS SUMMARY | 2025-04-14 13:21 | XMS_ITS | Patient Health Record ---
Author Organization [facility] [place] Address [address] [place] [address] Care Team Providers Care Quartz Miner [employer] Name Role Phone Mauro Caro Primary Care Provider [phone] Allergies No Known Allergies Reason For Referral [...] W/U Status Risk Notes Problem Well adult (221647549) Well adult (Z00.00) Active confirmed Problem Benign neoplasm of colon (21458670) Sigmoid polyp (D12.5) Active confirmed Problem Benign neoplasm of colon (00565673) Hyperplastic colonic polyp (K63.5) Active confirmed Problem [place]-Schlatter ' s disease, unspecified laterality (M92.529) Active [...] End Date MMO [employer] P[employer] [address] [address] [place] [phone] [id number] Fabian Melgar Self - patient is the insured Medical (General) History Medical History History ICD Code Eczema L30.9 [place]-Schlatter's disease, unspecified laterality M92.529 Tympanic membrane perforation H72.90 Surgical History Surgery Date(Month/Year) Colonoscopy- Dr. De La Paz 04/26/2024 Lumbar Epidural 05/13/2022 Lumbar Discectomy L5-S1- Dr. Krueger
--- NOTE | 2025-04-14 13:23 | MR_ITS ---
The [address] [address] Patient Name: OBI MCKEON MRN: [id number] date: 1975 Sex: M Assigned Patient Location: [facility] Current Patient Location: [facility] Accession/Order Number: [id number] Exam Date: 04/14/2025 13:50 Report Date: 04/14/2025 14:32 At the request of: HERBERT DAVIS NP Procedure: MR lumbar spine wo con MR lumbar spine wo con 04/14/2025 2:30 PM SIGNS AND SYMPTOMS: Low back pain with neurogenic claudication. Pain radiating into right leg PROTOCOL: Multiplanar multisequence MR images of the lumbar spine without IV contrast COMPARISON: None. FINDINGS: The bones of the lumbar spine are in anatomic alignment. There is preservation of vertebral body heights. There is disc desiccation and mild disc height loss at L4-5 and L5-S1. The marrow signal is within normal limits. The conus terminates at the inferior endplate of the L1 vertebral body level. No epidural or paraspinous fluid collection is appreciated. At T12-L1: There is a normal disc, central canal, and neural foramen. At L1-L2: There is a normal disc, central canal, and neural foramen. At L2-L3: There is a normal disc, central canal, and neural foramen. At L3-L4: There is a normal disc, central canal, and neural foramen. At L4-L5: There is a circumferential disc bulge with facet hypertrophy and ligamentum flavum thickening. There is moderate spinal canal narrowing with mild to moderate bilateral neural foraminal narrowing. At L5-S1: There is a circumferential disc bulge with a focal right subarticular and central disc extrusion with caudal migration. There is mass effect on the traversing right S1 nerve roots with moderate spinal canal narrowing. There is severe bilateral neural foraminal narrowing with mass effect on the exiting L5 nerve roots, right greater than left. MR/MR lumbar spine wo con IMPRESSION: At L5-S1: There is a circumferential disc bulge with a focal right subarticular and central disc extrusion with caudal migration. There is mass effect on the traversing right S1 nerve roots with moderate spinal canal narrowing. There is severe bilateral neural foraminal narrowing with mass effect on the exiting L5 nerve roots, right greater than left. Impression dictated by: Nisl Dumas M.D. 04/14/2025 2:32 PM Dictation Location: [place] [address] Electronically authenticated by: [id number] Date: 04/14/2025 14:32
--- NOTE | 2025-04-14 13:24 | XR_ITS ---
[facility] [place] [id number] Patient Name: OBI MCKEON MRN: [id number] date: 1975 Sex: M Assigned Patient Location: RAD Current Patient Location: [facility] Accession/Order Number: [id number] Exam Date: 04/14/2025 13:28 Report Date: 04/14/2025 13:47 At the request of: HERBERT DAVIS NP Procedure: XR foreign body eye ANDREW ORBITS FOR FOREIGN BODY - 2 views CLINICAL DATA: Pre-MRI clearance COMPARISON: None Jordan and lateral views were obtained. No radiopaque orbital foreign bodies are identified. The paranasal sinuses, as visualized are clear. There are no acute osseous abnormalities or pathologic intracranial calcifications in the bsary-nc-taex. XR/XR foreign body eye ANDREW IMPRESSION: NO ORBITAL RADIOPAQUE FOREIGN BODY. Impression dictated by: Francisca Burroughs M.D. 04/14/2025 1:47 PM Dictation Location: [place] [address] Electronically authenticated by: [id number] Y Date: 04/14/2025 13:47
== END 2025-04-14 13:16 | disposition home or self-care (01) ==
PROVIDERS: PCP Family Medicine; Visit Provider Nurse Practitioner
DX: M48.062 Spinal stenosis, lumbar region with neurogenic claudication (principal); M51.369 Other intervertebral disc degeneration, lumbar region without mention of lumbar back pain or lower extremity pain
CPT/HCPCS: 70030; 72148

== ENCOUNTER 2025-04-17 13:26 | Day surgery (SDC) | payer OTHER, SELFPAY ==
[2025-04-17 13:53] VITALS: BP 130/80; PULSE 60; TEMP 37; O2SAT 97
--- OUTSIDE RECORDS SUMMARY | 2025-04-17 14:21 | XMS_ITS | CCD ---
Author Organization [facility] CliniSyms Care Team Providers Care Beading Sawyer Name Role Phone YU ., VANESSA Consulting [...] Unavailable MD Steff Caro Primary Care Provider [phone] MD Obi De La Paz Attending [...] by mouth every six hours Hydrocodone-Acetamino phen ([place]) 5-325 mg tablet Active 1 TAB PO [...] us for your care. Jose Guadalupe Monae [facility] General Surgery Office/Clini c Noteon 05-11-2024 General [...] Primary malignant neoplasm of colon: Father. Normal [facility] Comment on above: Result Comment: [...] to family history of colon cancer. Normal [facility] Mario Alberto 04-27-2024 L Specimen: [id number] Received: 04/28/24 Status: SALOME Pepper Num: [id number] Spec Type: Surgical Subm Dr: Obi De La Paz MD FACS Tissues: A Colon Biopsy (SIGMOID POLYP) Procedures: HE/2, Gross/Micro L4 Age/ Patient Sex Location Account Attending Physician Obi Melgar 48/M LABELL [id number] Obi De La Paz MD FACS SPEC NUM: [id number] RECD: 04/28/24 STATUS: SALOME REMilana NUM: [id number] MARIAMA: 04/27/[address]: Obi De La Paz MD FACS ENTERED: 04/28/[address] [facility] [address]: SPEC TYPE: Surgical DEPT: SÁNCHEZ SIMMONS ENTERED BY: [id number] RECV BY: [id number] ORDERED: HE/2, Gross/Micro L4 ORDERED: HE/2, Gross/Micro [...] CPT Codes 88 305 -------- -------- Specimen: [id number] Received: 04/28/24 Status: SALOME Pepper Num: [id number] Spec Type: Surgical Subm Dr: Obi De La Paz MD FACS Tissues: A Colon Biopsy (SIGMOID POLYP) Procedures: HE/Alfreda, Gross/Micro L4 -------- Patient: Obi Melgar [id number] (Continued) -------- Signed (signature on file) Oscar Diaz MD 05/03/24 1554 Normal [facility] Ambulatory Visit Summaryon 0 03-30-2024 [...] for choosing us for your care. Normal [facility] Physician Referralon 024 Physician Referral [id number]. [id number] Normal [facility] XR LSPINE W_OBLS AND FLEX_EX [...] by: EPHRAIM THAPA Date: 2022-04-29 13:15 Normal [facility] XR Finger Righton 03-30-2022 XR Finger [...] by MURTAZA VILLASEÑOR on 03/30/2022 1036 Normal [facility] Specialist Vital Signs Date Time Vital Sign Value Performing Clinician Facility 04-02-2025 09:28-0400 Body temperature 97.3 [degF] Lisa Garcia CELL PLASTERER Work Phone: [facility] 04-02-2025 09:28-0400 Diastolic blood pressure 76 mm[Hg] Lisa Amezcuachol CELL PLASTERER Work Phone: [facility] 04-02-2025 09:28-0400 Heart rate 73 /min Lisa Amezcuachol CELL PLASTERER Work Phone: [facility] 04-02-2025 09:28-0400 SaO2% (BldA) [Mass fraction] 97 % Lisa Amezcuachol CELL PLASTERER Work Phone: [facility] 04-02-2025 09:28-0400 Systolic blood pressure 112 mm[Hg] Lisa Amezcuachol CELL PLASTERER Work Phone: [facility] 03-30-2024 15:49-0400 Blood Pressure Location Obi GUL [facility] 03-30-2024 15:49-0400 Diastolic blood pressure 64 mm[Hg] Obi NILL [facility] 03-30-2024 15:49-0400 Heart rate 68 /min Obi NILL [facility] 03-30-2024 15:49-0400 Respiratory rate 16 /min Obi NILL [facility] 03-30-2024 15:49-0400 Systolic blood pressure 116 mm[Hg] Obi NILL [facility] Encounters Encounter Date Encounter Type Care Provider Facility Start: 04-02-2025 End: 04-02-2025 ambulatory LISA GARCIA Not Available Start: 04-02-2025 End: 04-02-2025 Office outpatient new 45 minutes Lisa Garcia CELL PLASTERER Work Phone: [facility] Comment on above: Lumbar region somati c dysfunction (Primary Dx); Sacroiliitis Start: 05-11-2024 End: 05-11-2024 ambulatory Obi R NILL Facility: [facility] Start: 05-11-2024 End: 05-11-2024 Patient encounter procedure Obi R NILL [facility] Start: 04-27-2024 End: 04-27-2024 ambulatory MD Steff Caro Work Phone: [facility] Work Phone: Start: 04-27-2024 End: 04-27-2024 Departed Referred MD Steff Caro Work Phone: [facility] Start: 04-27-2024 End: 04-27-2024 ambulatory Obi R NILL Facility:[id number] Start: 03-30-2024 End: 03-30-2024 ambulatory Obi R NILL Facility: [place] Start: 03-30-2024 End: 03-30-2024 Patient encounter procedure Obi R NILL [facility] Start: 02-03-2024 End: 02-03-2024 ambulatory Obi R NILL Facility: [place] Start: 02-03-2024 End: 02-03-2024 Patient encounter procedure Obi R NILL [facility] Start: 12-28-2023 ambulatory Obi NILL Facility:[facility] Start: 06-01-2023 End: 06-02-2023 ambulatory Almaz Brooke MD Facility:[facility] Start: 05-18-2023 End: 05-19-2023 ambulatory Almaz Brooke MD Facility:[facility] [place] Start: 12-30-[address] STEFF CARO . [...] PAZ Payers Date Payer Category Payer Self-pay [id number] 2023 Unknown [id number] 2023 Unknown 2022 Private Health Insurance 2010 Unknown [id number] 1975 Unknown [id number] .[id number] 1975 Unknown [id number] .840.1.036602.3.579.2.59 1975 Unknown [id number] 2.840.1.521641.3.579.2.59 1975 Unknown [id number] 2.840.1.428671.3.579.2.593 1975 Unknown [id number] .16.840.1.192704.3.579.2.593 1975 Unknown [id number] 2.16.840.1.257804.3.579.2.593 1975 Unknown [id number] 2.16.840.1.941409.3.579.2.593 1975 Unknown [id number] 2.16.840.1.191156.3.579.2.593 1975 Unknown [id number] 2.16.840.1.699387.3.579.2.196 1975 Unknown [id number] 2.16.840.1.879026.3.579.2.196 1975 Unknown [id number] 2.16.840.1.496013.3.579.2.727 1975 Unknown [id number] 2.16.840.1.476272.3.579.2.727 1975 Unknown [id number] 2.16.840.1.165292.3.579.2.727 1977 Unknown [id number] 2.16.840.1.906819.3.579.2.727 1975 Unknown [id number] 2.16.840.1.823987.3.579.2.727 1975 Unknown [id number] 2.16.840.1.897899.3.579.2.1259 1959 Private Health Insurance [id number] Private Health Insurance [facility] [id number] Unknown [id number] 2.16.840.1.375663.3.579.2.531 Social History Date Type Detail Facility Tobacco smoking status [facility] Sex Assigned At Male [facility] Start: 03-30-2024 Tobacco smoking status Heavy tobacco smoker (finding) [facility] Tobacco smoking status Never [facility] Start: 03-29-2019 Tobacco smoking status NHIS Smoker (finding) [facility] Start: 1975 Sex Assigned At Male [facility] Tobacco smoking status NHIS Tobacco smoking consumption unknown [facility] Start: 1975 Sex assigned at Not on file [facility] Functional Status Date Assessment Result Facility 03-30-2024 Functional Status N/A [facility] History of Present illness Narrative 04-02-2025 Lisa Garcia, CELL PLASTERER - 04/02/2025 9:20 AM EDT Note Date [...] scheduled for an appointment with his paint and table edger, which may be performing a steroid shot or ablation in the future. His last visit with the paint and table edger was a year ago, and he has [...] patient's pain, supporting SI joint involvement. The hnqluvxp-rkn-uokvhyh test is negative. No signs of upper [...] with pain management. documented in this encounter [facility] Clinical Note 03-30-2024 Note Date & Type [...] years ago; no asa or NSAID use; exxe6ro daily; fmhx of colon cancer in patient's [...] Brother. Primary malignant neoplasm of colon: Father. [facility] Comment on above: Result Comment: [...] evening, after being at work and the [employer] games, he feels back tightness. 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 He has patchy hypoesthesia [...] indicated. Patient agrees with this plan. [facility] Consultation note 06-05-2022 Note Date & [...] three months' time unless otherwise indicated. [facility] Consultation note 04-29-2022 Note Date & [...] to proceed. CC: Steff Caro M.D. [facility] Evaluation + Plan note Note Date & Type Note Facility Evaluation + Plan note No data available for this section [facility] Evaluation note Note Date & Type Note Facility Evaluation note No assessment information availa [facility] Work Phone: Evaluation note Note Date & Type Note Facility Evaluation note Diagnosis Lumbar region somatic dysfunction- Primary Nonallopathic lesion of lumbar region, not elsewhere classified Sacroiliitis Sacroiliitis, not elsewhere classified documented in this encounter [facility] Discharge instructions Note Date & Type Note Facility Hospital Discharge instructions No data available for this section [facility] Progress note Note Date & Type Note Facility Progress note No data available for this section [facility] Summary Purpose Family History No Family [...] section and content) DATE CREATED AUTHOR 04/03/2022 [facility] DATE CREATED AUTHOR AUTHOR'S ORGANIZ ATION 12/08/2022 [facility] DATE CREATED AUTHOR AUTHOR'S ORGANIZ ATION 11/01/2023 [facility] DATE CREATED AUTHOR AUTHOR'S ORGANIZ ATION 05/06/2024 [facility] DATE CREATED AUTHOR AUTHOR'S ORGANIZ ATION 05/13/2024 [facility] DATE CREATED AUTHOR AUTHOR'S ORGANIZ ATION 04/03/2025 [facility] EPIC Patient Care team informatio n (unrecognized section and content) Team Status: Active Member Role Status Dates Steff Caro MD Primary Care Provider Active Team Status: Inactive Member Role Status Dates Steff Caro MD Primary Care Provider Active Start: April 27, 2024 End: April 27, 2024 Obi De La Paz MD [facility] Attending Provider Active Start: April 27, [...] BE BASED ON THE PRIMARY CLINICAL RECORDS. [employer] provides no warranty or guarantee of the accuracy or completeness of information in this document.
[2025-04-17 14:44] VITALS: BP 127/71; PULSE 56; O2SAT 100
[2025-04-17 14:45] VITALS: BP 127/74; PULSE 57; O2SAT 100
[2025-04-17] MEDS: 0.9 % SODIUM CHLORIDE 10 ML SYRINGE - SALINE FLUSH INJ (14:51)
[2025-04-17] MEDS: BUPIVACAINE HCL 0.25% PF 25 MG/10 ML VIAL INJ (14:51)
[2025-04-17] MEDS: IOHEXOL 240 MG/ML - 10 ML VIAL 24 MG INJ (14:51)
[2025-04-17] MEDS: LIDOCAINE HCL 2% 400 MG/20 ML MDV INJ (14:52)
[2025-04-17] MEDS: METHYLPREDNISOLONE ACETATE 80 MG/ML VIAL INJ (14:52)
--- NOTE | 2025-04-17 14:53 | P.ON_ITS ---
Date of procedure: 04/17/25 Pre-op diagnosis: Pain due to lumbar stenosis with neurogenic claudication Post-op diagnosis: same as pre-op Procedure: Procedure: Right L5-S1, S1-2 transforaminal epidural steroid injection Medications: Bupivacaine 0.25% 2cc, lidocaine 2% 1cc, depomedrol 80mg The patient was seen and examined in the preoperative holding area.? Informed consent was obtained and placed on the chart.? Patient was brought to the medical procedure unit and placed in the prone position where a timeout was completed verifying the correct patient, procedure site, position, and planned special equipment using sterile aseptic technique.? Under direct fluoroscopic visualization a 25-gauge Quincke tipped spinal needle was advanced to the designated neural foramen where contrast dye was injected to show adequate spread.? The needle was inserted at level right L5-S1. There was no evidence of vascular or adverse uptake.? Epidural spread was appreciated.? The above- mentioned injectate was then placed in a 1.5 mL aliquot preceded by negative aspiration.? The needle was removed. The needle was inserted and the procedure repeated at level right S1-2.? The surgery site was covered.? Patient was taken to the postprocedural recovery area and monitored for an appropriate length of time before found suitable for discharge in the accompaniment of a responsible adult. Anesthesia: Local Surgeon: Almaz Brooke Pathology: none sent Condition: stable Disposition: no change
== END 2025-04-17 15:05 | disposition home or self-care (01) ==
PROVIDERS: PCP Family Medicine; Visit Provider Anesthesiology
DX: M48.062 Spinal stenosis, lumbar region with neurogenic claudication (principal); M54.50 Low back pain, unspecified
CPT/HCPCS: 64483; 64484; J0665; J1010; Q9966

== ENCOUNTER 2025-04-26 07:54 | Outpatient (OUT) | payer OTHER, SELFPAY ==
--- OUTSIDE RECORDS SUMMARY | 2025-04-26 07:57 | XMS_ITS | CCD ---
Author Organization [facility] CliniSyny Care Team Providers Care On Air Director Name Role Phone AIMEE .VANESSA Consulting Unavailable [...] Admitting Unavailable EMMA MURO Attending Unavailable AIMEE ., VANESSA Consulting Unavailable CHILDERS ., DR RUSTY Patel Attending Unavailable CHILDERS ., DR RUSTY Patel Admitting Unavailable VANIA ., DR ARTIS Primary Care Unavailable Steff Caro Primary Care Physician Ondina Nelson Unavailable Unavailable MD Steff Caro Primary Care Provider [phone] MD Obi De La Paz Attending Provider Steff Caro Primary Care Unavailable Obi De La Paz Attending Unavailable Obi De La Paz Admitting Unavailable Obi DE LA PAZ Attending Unavailable Steff Caro Referring Unavailable NILL, Obi R Attending Unavailable Obi DE LA PAZ Attending Unavailable Steff Caro Referring Unavailable Obi DE LA PAZ Attending Unavailable LISA GARCIA Attending Unavailable Unavailable Primary Care Provider Unavailuche Brooke MD, Almaz Palacio Attending Unavailable Medications Current Medications Medication Drug Class(es) Dates Sig (Normalized) Sig (Original) acetaminophen 325 mg / HYDROcodone bitartrate 5 mg oral tablet (1 source) Opioid Agonist Start: 9 take 1 tablet by mouth every six hours Hydrocodone-Acetamino phen ([place]) 5-325 mg tablet Active 1 TAB PO [...] Primary Care Physician - Vania LUND, Steff Procedures Performed Colonoscopy (04/27/2024), Colonoscopy, Lumbar discectomy. Allergies [...] us for your care. Jose Guadalupe Monae [facility] Office/Clini c Noteon 05-11-2024 General [...] Primary malignant neoplasm of colon: Father. [facility] Comment on above: Result Comment: Elec [...] to family history of colon cancer. [facility] Mario Alberto 04-27-2024 L Specimen: [id number] Received: 04/28/24 Status: SALOME Pepper Num: [id number] Spec Type: Surgical Subm Dr: Obi De La Paz MD FACS Tissues: A Colon Biopsy (SIGMOID POLYP) Procedures: HE/2, Gross/Micro L4 Age/ Patient Sex Location Account Attending Physician Obi Melgar 48/M LABELL [id number] Obi De La Paz MD FACS SPEC NUM: [id number] RECD: 04/28/24 STATUS: SALOME PEPPER NUM: [id number] MARIAMA: 04/27/[address]: Obi De La Paz MD FACS ENTERED: 04/28/[address] [facility] [address]: SPEC TYPE: Surgical DEPT: [facility] ENTERED BY: [id number] RECV BY: [id number] ORDERED: HE/2, Gross/Micro L4 ORDERED: HE/2, Gross/Micro [...] CPT Codes 88 305 -------- -------- Specimen: [id number] Received: 04/28/24 Status: SALOME Evgeny Num: [id number] Spec Type: Surgical Subm Dr: Obi De La Paz MD FACS Tissues: A Colon Biopsy (SIGMOID POLYP) Procedures: MARY/Alfreda, Ramiro/Dragan L4 -------- Patient: Obi Melgar [id number] (Continued) -------- Signed (signature on file) Oscar Diaz MD 05/03/24 1554 Normal [facility] Ambulatory Visit Summaryon 0 03-30-2024 Ambulatory Visit Summary Ambulatory Visit Summary OBI MELGAR :1975 Visit Date:03/30/2024 Ambulatory Visit Instructions Your Care Team Attending Physician - AROLDO LUND, Obi Tirado Primary Care Physician - Vania LUND, Steff Referring Physician - Steff Caro MD Procedures Performed Colonoscopy, Lumbar discectomy. Discharge Vitals [...] for choosing us for your care. [facility] Physician Referralon 024 Physician Referral [phone] [id number]. [id number] [facility] XR LSPINE W_OBLS AND FLEX_EX Ton [...] by: EPHRAIM THAPA Date: 2022-04-29 13:[address] 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 Vital Signs Date Time Vital Sign Value Performing Clinician Facility 04-02-2025 09:28-0400 Body temperature 97.3 [degF] Lisa Garcia TRANSCRIPTIONIST Work Phone: [facility] 04-02-2025 09:28-0400 Diastolic blood pressure 76 mm[Hg] Lisa Amezcuachol TRANSCRIPTIONIST Work Phone: [facility] 04-02-2025 09:28-0400 Heart rate 73 /min Lisa Amezcuachol TRANSCRIPTIONIST Work Phone: [facility] 04-02-2025 09:28-0400 SaO2% (BldA) [Mass fraction] 97 % Lisa Amezcuachol TRANSCRIPTIONIST Work Phone: [facility] 04-02-2025 09:28-0400 Systolic blood pressure 112 mm[Hg] Lisa Amezcuachol TRANSCRIPTIONIST Work Phone: [facility] 03-30-2024 15:49-0400 Blood Pressure Location Obi GUL [facility] 03-30-2024 15:49-0400 Diastolic blood pressure 64 mm[Hg] Obi NILL [facility] 03-30-2024 15:49-0400 Heart rate 68 /min Obi NILL [facility] 03-30-2024 15:49-0400 Respiratory rate 16 /min Obi NILL [facility] 03-30-2024 15:49-0400 Systolic blood pressure 116 mm[Hg] Obi NILL [facility] Encounters Encounter Date Encounter Type Care Provider Facility Start: 04-17-2025 End: 04-17-2025 ambulatory Almaz Brooke MD Facility: [facility] Start: 04-02-2025 End: 04-02-2025 ambulatory LISA JOSE Not Available Start: 04-02-2025 End: 04-02-2025 Office outpatient new 45 minutes Lisa Garcia TRANSCRIPTIONIST Work Phone: [facility] Comment on above: Lumbar region somati c dysfunction (Primary Dx); Sacroiliitis Start: 05-11-2024 End: 05-11-2024 ambulatory Obi GUL Facility: [facility] [facility] [place] [facility] Start: 05-11-2024 End: 05-11-2024 Patient encounter procedure [facility] Start: 04-27-2024 End: 04-27-2024 ambulatory MD Steff Caro Work Phone: [facility] Work Phone: Start: 04-27-2024 End: 04-27-2024 Departed Referred MD Steff Caro Work Phone: [facility] Start: 04-27-2024 End: 04-27-2024 ambulatory Obi R NILL Facility:[id number] Start: 03-30-2024 End: 03-30-2024 ambulatory Obi R NILL Facility: [facility] [place] [facility] Start: 03-30-2024 End: 03-30-2024 Patient encounter procedure Obi GUL [facility] Start: 02-03-2024 End: 02-03-2024 ambulatory Obi R NILL Facility: [facility] Start: 02-03-2024 End: 02-03-2024 Patient encounter procedure [facility] R [facility]ILL [facility] Start: 12-28-2023 ambulatory Obi GUL Facility:[facility] [place] Start: 12-30-[address] STEFF CARO . [...] Detail Performing Clinician Start: 04-27-2024 Colonoscopy Obi NI LL Colonoscopy Obi NILL Excision of lumbar intervertebral disc Obi DE LA PAZ Payers Date Payer Category Payer Private Health Insurance [employer] [id number] 2024 Self-pay [id number] 2023 Unknown [id number] 2023 Unknown 2010 Unknown [id number] 1977 Unknown [id number] 2.16.840.1.226657.3.579.2. 593 1977 Unknown [id number] 2.16.840.1.838506.3.579.2. 593 1977 Unknown [id number] 2.16.840.1.701733.3.579.2. 593 1977 Unknown [id number] 2.16.840.1.199498.3.579.2. 593 1977 Unknown [id number] 2.16.840.1.606410.3.579.2. 593 1977 Unknown [id number] 2.16.840.1.384371.3.579.2. 593 1977 Unknown [id number] 2.16.840.1.388281.3.579.2. 593 1977 Unknown [id number] .16.840.1.695495.3.579.2. 593 1977 Unknown [id number] 2.16840.1.028774.3.579.2. 727 1977 Unknown [id number] 2.16.840.1.319071.3.579.2. 727 1977 Unknown [id number] 2.16.840.1.613724.3.579.2. 727 1977 Unknown [id number] 2.16840.1.559609.3.579.2. 727 1977 Unknown [id number] 2.16.840.1.052767.3.579.2. 727 1977 Unknown [id number] 2.16840.1.006686.3.579.2. 1259 1977 Unknown [id number] 2.16.840.1.894646.3.579.2. 196 1959 Private Health Insurance [id number] Private Health Insurance [facility] [id number] Unknown [id number] 2.16.840.1.835825.3.579.2. 531 Social History Date Type Detail Facility Tobacco smoking status [facility] Sex Assigned At Male [facility] Start: 03-30-2024 Tobacco smoking status Heavy tobacco smoker (finding) [facility] Tobacco smoking status Never [facility] Start: 03-29-2019 Tobacco smoking status NHIS Smoker (finding) [facility] Start: 1975 Sex Assigned At Male [facility] Tobacco smoking status NHIS Tobacco smoking consumption unknown [facility] Start: 1975 Sex assigned at Not on file [facility] Functional Status Date Assessment Result Facility 03-30-2024 Functional Status N/A [facility] History of Present illness Narrative 04-02-2025 Lisa Garcia NP - 04/02/2025 9:20 AM EDT Note Date [...] is scheduled for an appointment with his aircraft painter apprentice, which may be performing a steroid shot or ablation in the future. His last visit with the aircraft painter apprentice was a year ago, and he has [...] patient's pain, supporting SI joint involvement. The trrqypcw-hey-wboscsc test is negative. No signs of upper [...] with pain management. documented in this encounter [facility] Clinical Note 03-30-2024 Note Date & Type [...] years ago; no asa or NSAID use; cjiu8oo daily; fmhx of colon cancer in patient's [...] Brother. Primary malignant neoplasm of colon: Father. 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 He has patchy hypoesthesia [...] indicated. Patient agrees with this plan. [facility] Consultation note 06-05-2022 Note Date & Type [...] three months' time unless otherwise indicated. [facility] Consultation note 04-29-2022 Note Date & Type [...] to proceed. CC: Steff Caro M.D. [facility] Evaluation + Plan note Note Date & Type Note Facility Evaluation + Plan note No data available for this section [facility] Evaluation note Note Date & Type Note Facility Evaluation note [facility] Evaluation note Note Date & Type Note Facility Evaluation note Diagnosis Lumbar region somatic dysfunction- Primary Nonallopathic lesion of lumbar region, not elsewhere classified Sacroiliitis Sacroiliitis, not elsewhere classified documented in this encounter [facility] Discharge instructions Note Date & Type Note Facility Hospital Discharge instructions No data available for this section [facility] Progress note Note Date & Type Note Facility Progress note No data available for this section [facility] Summary Purpose Family History No Family History Records FoundNo Family History Records Found No data available for this section No data available for this section No Family History Records FoundNo Family History Records Found No data available for this section No Family History Records FoundNo Family History Records Found Advance Directives No Advanced Directives Records Found Advance Directive Response Recorded Date/ Time Advance Directives No March 29, 2019 3:13pm Additional Source Comments (unrecognized sect ion and content) No Status Records FoundNo Status Records FoundNo Status Records FoundNo Status Records FoundNo Status Records FoundNo Status Records Found INFORMATION SOURCE (unrecogn ized section and content) DATE CREATED AUTHOR 04/03/2022 [facility] dical Specialist DATE CREATED AUTHOR AUTHOR'S ORGANIZ ATION 12/08/2022 [facility] DATE CREATED AUTHOR AUTHOR'S ORGANIZ ATION 05/06/[address] [facility] DATE CREATED AUTHOR AUTHOR'S ORGANIZ ATION 05/13/2024 Monae Pepito [facility] DATE CREATED AUTHOR AUTHOR'S ORGANIZ ATION 04/03/2025 [facility] dical Specialists EPIC DATE CREATED AUTHOR AUTHOR'S ORGANIZ ATION 04/23/2025 [facility] Patient Care team informatio n (unrecognized section and content) Team Status: Active Member Role Status Dates Steff Caro MD Primary Care Provider Active Team Status: Inactive Member Role Status Dates Steff Caro MD Primary Care Provider Active Start: April 27, 2024 End: April 27, 2024 Obi De La Paz MD [facility] Attending Provider Active Start: April 27, [...] BE BASED ON THE PRIMARY CLINICAL RECORDS. [employer] provides no warranty or guarantee of the accuracy or completeness of information in this document.
--- NOTE | 2025-04-26 08:03 | P.CN_ITS ---
Consult Note: HPI Data of Consult Patient: known to practice within the last 3 years Consult date: 04/26/25 Requesting Physician: Yesi Caballero NP Primary Care Provider: Av Caro MD Consult Narrative Reason for consult: ALEX f/u Narrative: Fabian Melgar a pleasant 49 year old male presents for evaluation of chronic low back pain > 20 years unresponsive to greater than 6 weeks of provider guided HEP, heat, ice, tylenol, nsaids, and oral steroids. recently underwent Right L5- S1, S1-2 transforaminal epidural steroid injection with significant improvement in radicular/NC symptoms. Pt reporting >50% improvement. Utilizing gabapentin 100mg HS, baclofen 5-10mg TID PRN pain/spasms, celebrex 100mg BID PRN with benef it without side effects. notes persistent right SIJ pain. pain today 1-2/10 increasing to 7/10 in the AM and with overactivity. denies fall/injury. cc:: CC: Yesi Caballero NP Review of Systems ROS Musculoskeletal Reports: back pain and joint pain; Denies: extremity pain PFSH PFSH Medical History Eczema ?L30.9 - Dermatitis, unspecified (ICD-10) Back pain ?M54.9 - Dorsalgia, unspecified (ICD-10) Surgical History H/O colonoscopy ?Z98.890 - Other specified postprocedural states (ICD-10) H/O lumbar discectomy ?Z98.890 - Other specified postprocedural states (ICD-10) Family History Other Colon cancer Family history of hypertension Social History Within the past year, how often did you have a drink containing alcohol: 2-4 times a month Smoking status: Current every day smoker Non-prescribed substance use: denies use 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 Highest level of school completed/degree received: high school graduate Meds Home Medications and Allergies Home Medications ?Medication ?Instructions ?Recorded ?Confirmed ?Type baclofen 10 mg tablet mg 04/17/25 History celecoxib 100 mg capsule mg 04/17/25 History gabapentin 100 mg capsule mg 04/17/25 History Allergies Allergy/AdvReac Type Severity Reaction Status Date / Time No Known Drug Allergies Allergy Verified 04/17/25 13:48 Exam Constitutional Documenting provider has reviewed patient's vital signs: yes Common normals: no apparent distress, oriented x3, healthy appearing, alert and well nourished General appearance: cooperative HENMT Common normals: normocephalic, hearing grossly normal bilaterally and moist oral mucous membranes Head and scalp: normocephalic Eye Common normals: PERRL Pupil: PERRL Neck & C-Spine Common normals: full ROM General: normal visual inspection Chest Common normals: inspection of chest normal Respiratory Common normals: normal respiratory effort, no retractions and no use of accessory muscles Back & Pelvis Lumbar spine/lower back: straight leg raise negative bilaterally; no pain with ROM and no lumbar spinal tenderness Sacroiliac joints: SI joint(s) abnormal Other: right sij positive mercy(patricks), gaenslens, thigh thrust, compression test strength 5/5 in BLE sensation intact BLE Neuro Common normals: oriented x3 Sensorium/orientation: alert Psych Common normals: mental status grossly normal, thought process normal, cooperative, affect normal, speech normal and activity/motor behavior normal Speech: normal speech Thought process: normal thought process Results Additional Findings Additional findings: If on a controlled substance or opioids, I have checked an [place] report on this patient and there are no aberrancies noted in the prescribing history.??If on a controlled substance or opioid a drug screen was completed and reviewed within the last year, and if there has not been a drug screen completed we ordered one today to monitor higher risk, state monitored pain medication use. As part of providing excellent, safe, comprehensive care, the following was completed at our patient's visit: 1. A medication reconciliation and review to ensure accurate knowledge of current/active medications, including asking our patients to inform us about any nbzg-odr-wiudjoh medications or herbal remedies/nutritional supplements/alternative remedies. 2. A review to specifically ensure our patients have had annual screening for screening for depression, screening for tobacco use, and screening for unhealthy alcohol use. For concerning screenings had a discussion with the patient, provided patient education, and recommended follow-up with primary care provider when appropriate. If patient noted with a risk of falling, they received education on strength, gait, and balance training to prevent future risk of falling. Portions of this note may have been carried over from the previous visit and updated as appropriate. Please note this office utilizes paper charting in addition to the electronic medical record. A list of current medications, vitals, and PMH is available there as the clinical staff outside of myself do not have access to [employer] charting during the clinic day operations. As part of providing quality comprehensive care the current medications, vitals, and PMH were reviewed in the paper chart. Assessment and Plan Assessment and Plan (1) Sacroiliitis: Assessment and Plan: The patient has had over 3 months of moderate to severe low back and right SIJ pain with functional impairment and inadequate response to conservative care including NSAIDS (unless there are contraindication such as concurrent blood thinners), multiple oral or topical pain medications, and home exercise program/physical therapy.? Patient has completed >6 weeks of guided home exercise program and/or formal physical therapy program without relief of their symptoms.? The Oswestry Disability Index was completed, and the patient scored a 14%.? (2) Lumbar stenosis with neurogenic claudication: (3) Lumbar neuritis: (4) Lumbar spondylosis: Plan right SIJ injection under fluoroscopy continue current medications, risks vs benefits reviewed. pt advised to utilize celebrex 100mg BID PRN and not to take more than 200mg daily at this time continue HEP as tolerated declining NS consultation at this time, pt and would like to further dis cuss f/u 2 weeks after injection
== END 2025-04-26 07:55 | disposition home or self-care (01) ==
LOC: PM 07:54
PROVIDERS: PCP Family Medicine; Visit Provider Nurse Practitioner
DX: M46.1 Sacroiliitis, not elsewhere classified (principal); M48.062 Spinal stenosis, lumbar region with neurogenic claudication; M47.26 Other spondylosis with radiculopathy, lumbar region
CPT/HCPCS: G0463

== ENCOUNTER 2025-05-15 07:01 | Day surgery (SDC) | payer OTHER, SELFPAY ==
[2025-05-15 06:59] VITALS: BP 119/78; PULSE 69; TEMP 36.6; O2SAT 98
--- OUTSIDE RECORDS SUMMARY | 2025-05-15 07:03 | XMS_ITS | CCD ---
Author Organization [facility] CliniSymd Care Team Providers Care Anode Worker Name Role Phone AIMEE .VANESSA Consulting Unavailable CHILDERS ., DR RUSTY Patel Attending Unavailable CHILDERS ., DR RUSTY Patel Admitting Unavailable HOY ., DR ARTIS Primary Care Unavailable CHILDERS ., DR RUSTY Ptael Consulting Unavailable CHILDERS ., DR RUSTY Patel Attending Unavailable CHILDERS ., DR RUSTY Patel Admitting Unavailable HOY ., DR ARTIS Primary Care Unavailable HOY ., DR ARTIS Primary Care Unavailable LAKSHMIPATHY ., NARFREEDOM Admitting Nydai vailable LAKSHMIPATHY ., ERWIN Attending Nydia vailable [...] Care Unavailable Steff Caro Primary Care Physician [phone] Ondina Nelson Unavailable Unavailable MD Steff Caro Primary Care Provider [phone] MD Obi De La Paz Attending Provider [phone] Steff Caro Primary Care Unavailable Obi De [...] by mouth every six hours Hydrocodone-Acetamino phen (Perley) 5-325 mg tablet Active 1 TAB PO [...] us for your care. Jose Guadalupe Monae [facility] General Surgery Office/Clini c Noteon 05-11-2024 General [...] Primary malignant neoplasm of colon: Father. [facility] Comment on above: Result Comment: Elec [...] to family history of colon cancer. [facility] Mario Alberto 04-27-2024 L Specimen: [id number] Received: 04/28/24 Status: SALOME Pepper Num: [id number] Spec Type: Surgical Subm Dr: Obi De La Paz MD FACS Tissues: A Colon Biopsy (SIGMOID POLYP) Procedures: HE/2, Gross/Micro L4 Age/ Patient Sex Location Account Attending Physician Obi Melgar 48/M [place] [id number] Obi De La Paz MD FACS SPEC NUM: [id number] RECD: 04/28/24 STATUS: SALOME PEPPER NUM: [id number] MARIAMA: 04/27/[address]: Obi De La Paz MD FACS ENTERED: 04/28/[address] [facility] DR: SPEC TYPE: Surgical DEPT: SÁNCHEZ SIMMONS ENTERED BY: [id number] RECV BY: [id number] ORDERED: HE/2, Gross/Micro L4 ORDERED: HE/2, Gross/Micro [...] CPT Codes 88 305 -------- -------- Specimen: [id number] Received: 04/28/24 Status: SALOME Evgeny Num: [id number] Spec Type: Surgical Subm Dr: Obi De La Paz MD FACS Tissues: A Colon Biopsy (SIGMOID POLYP) Procedures: MARY/Alfreda, Ramiro/Dragan L4 -------- Patient: Obi Melgar [id number] (Continued) -------- Signed (signature on file) Oscar Diaz MD 05/03/24 1554 Normal [facility] Ambulatory Visit Summaryon 0 [...] for choosing us for your care. Normal [facility] Physician Referralon 024 Physician Referral [phone] [id number]. 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 Vital Signs Date Time Vital Sign Value Performing Clinician Facility 04-02-2025 09:28-0400 Body temperature 97.3 [degF] Lisa Garcia HORSE FARM MANAGER Work Phone: [facility] 04-02-2025 09:28-0400 Diastolic blood pressure 76 mm[Hg] Lisa Amezcuachol HORSE FARM MANAGER Work Phone: [facility] 04-02-2025 09:28-0400 Heart rate 73 /min Lisa Amezcuachol HORSE FARM MANAGER Work Phone: [facility] 04-02-2025 09:28-0400 SaO2% (BldA) [Mass fraction] 97 % Lisa Amezcuachol HORSE FARM MANAGER Work Phone: [facility] 04-02-2025 09:28-0400 Systolic blood pressure 112 mm[Hg] Lisa Amezcuachol HORSE FARM MANAGER Work Phone: [facility] 03-30-2024 15:49-0400 Blood Pressure Location Obi GUL [facility] 03-30-2024 15:49-0400 Diastolic blood pressure 64 mm[Hg] Obi NILL [facility] 03-30-2024 15:49-0400 Heart rate 68 /min Obi NILL [facility] 03-30-2024 15:49-0400 Respiratory rate 16 /min Obi NILL [facility] 03-30-2024 15:49-0400 Systolic blood pressure 116 mm[Hg] Obi NILL [facility] Encounters Encounter Date Encounter Type Care Provider Facility Start: 04-17-2025 End: 04-17-2025 ambulatory Almaz Brooke MD Facility: [facility] Start: 04-02-2025 End: 04-02-2025 ambulatory LISA JOSE Not Available Start: 04-02-2025 End: 04-02-2025 Office outpatient new 45 minutes Lisa Garcia HORSE FARM MANAGER Work Phone: [facility] Comment on above: Lumbar region somati c dysfunction (Primary Dx); Sacroiliitis Start: 05-11-2024 End: 05-11-2024 ambulatory Obi GUL Facility: [place] Start: 05-11-2024 End: 05-11-2024 Patient encounter procedure Obi DE LA PAZ [facility] Start: 04-27-2024 End: 04-27-2024 ambulatory MD Steff Caro Work Phone: [facility] Work Phone: Start: 04-27-2024 End: 04-27-2024 Departed Referred MD Steff Caro Work Phone: [facility] Start: 04-27-2024 End: 04-27-2024 ambulatory Obi R NILL Facility:[id number] Start: 03-30-2024 End: 03-30-2024 ambulatory Obi R NILL Facility: [facility] Start: 03-30-2024 End: 03-30-2024 Patient encounter procedure Obi GUL [facility] [place] Start: 02-03-2024 End: 02-03-2024 ambulatory Obi R NILL Facility: [place] Start: 02-03-2024 End: 02-03-2024 Patient encounter procedure Obi R NILL [facility] Start: 12-28-2023 ambulatory Obi GUL Facility:[facility] [place] Start: 12-30-[address] STEFF CARO . [...] Category Payer Private Health Insurance [employer] [id number] 2024 Self-pay [id number] 2023 Unknown [id number] 2023 Unknown 2010 Unknown [id number] 1977 Unknown [id number] 2.16.840.1.991960.3.579.2. 593 1977 Unknown [id number] 2.16.840.1.787594.3.579.2. 593 1977 Unknown [id number] 2.16.840.1.886317.3.579.2. 593 1977 Unknown [id number] 2.16.840.1.657482.3.579.2. 593 1977 Unknown [id number] 2.16.840.1.656151.3.579.2. 593 1977 Unknown [id number] 2.16.840.1.606116.3.579.2. 593 1977 Unknown [id number] 2.16.840.1.081400.3.579.2. 593 1977 Unknown [id number] .16.840.1.328256.3.579.2. 593 1977 Unknown [id number] 2.16840.1.419919.3.579.2. 727 1977 Unknown [id number] 2.16.840.1.826115.3.579.2. 727 1977 Unknown [id number] 2.16.840.1.099796.3.579.2. 727 1977 Unknown [id number] 2.16840.1.959436.3.579.2. 727 1977 Unknown [id number] 2.16.840.1.739324.3.579.2. 727 1977 Unknown [id number] 2.16840.1.756641.3.579.2. 1259 1977 Unknown [id number] 2.16.840.1.260030.3.579.2. 196 1959 Private Health Insurance [id number] Private Health Insurance [facility] [id number] Unknown [id number] 2.16.840.1.200048.3.579.2. 531 Social History Date Type Detail Facility Tobacco smoking status [facility] Sex Assigned At Male [facility] Start: 03-30-2024 Tobacco smoking status Heavy tobacco smoker (finding) [facility] Tobacco smoking status Never [facility] Start: 03-29-2019 Tobacco smoking status NHIS Smoker (finding) [facility] Start: 1975 Sex Assigned At Male Vijay [facility] Tobacco smoking status NHIS Tobacco smoking consumption unknown [facility] Start: 1975 Sex assigned at Not on file [facility] Functional Status Date Assessment Result Facility 03-30-2024 Functional Status N/A [facility] History of Present illness Narrative 04-02-2025 [...] is scheduled for an appointment with his chest painting leader, which may be performing a steroid shot or ablation in the future. His last visit with the chest painting leader was a year ago, and he has [...] patient's pain, supporting SI joint involvement. The jumkgqiz-ecp-rormwkk test is negative. No signs of upper [...] with pain management. documented in this encounter [facility] Clinical Note 03-30-2024 Note Date [...] years ago; no asa or NSAID use; ckpm4bt daily; fmhx of colon cancer in patient's [...] Brother. Primary malignant neoplasm of colon: Father. 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 He has patchy hypoesthesia to [...] Patient agrees with this plan. [facility] Consultation note 06-05-2022 Note Date & Type [...] months' time unless otherwise indicated. [facility] Consultation note 04-29-2022 Note Date & Type [...] proceed. CC: Steff Caro M.D. [facility] Evaluation + Plan note Note Date & Type Note Facility Evaluation + Plan note No data available for this section [facility] Evaluation note Note Date & Type Note Facility Evaluation note [facility] Evaluation note Note Date & Type Note Facility Evaluation note Diagnosis Lumbar region somatic dysfunction- Primary Nonallopathic lesion of lumbar region, not elsewhere classified Sacroiliitis Sacroiliitis, not elsewhere classified documented in this encounter [facility] Discharge instructions Note Date & Type Note Facility Hospital Discharge instructions No data available for this section [facility] Progress note Note Date & Type Note Facility Progress note No data available for this section [facility] Summary Purpose Family History No Family [...] section and content) DATE CREATED AUTHOR 04/03/2022 [facility] dical Specialist DATE CREATED AUTHOR AUTHOR'S ORGANIZ ATION 12/08/2022 [facility] DATE CREATED AUTHOR AUTHOR'S ORGANIZ ATION 05/06/2024 [facility] DATE CREATED AUTHOR AUTHOR'S ORGANIZ ATION 05/13/2024 Monae Pepito [facility] DATE CREATED AUTHOR AUTHOR'S ORGANIZ ATION 04/03/2025 [facility] dical Specialists EPIC DATE CREATED AUTHOR AUTHOR'S ORGANIZ ATION 04/23/2025 [facility] Patient Care team informatio n (unrecognized section and content) Team Status: Active Member Role Status Dates Steff Caro MD Primary Care Provider Active Team Status: Inactive Member Role Status Dates Steff Caro MD Primary Care Provider Active Start: April 27, 2024 End: April 27, 2024 Obi De La Paz MD [facility] Attending Provider Active Start: April 27, 2024 [...] BE BASED ON THE PRIMARY CLINICAL RECORDS. [employer] provides no warranty or guarantee of the accuracy or completeness of information in this document.
[2025-05-15 07:35] VITALS: BP 113/64; PULSE 67; O2SAT 99
[2025-05-15] MEDS: BUPIVACAINE HCL 0.25% PF 25 MG/10 ML VIAL 2 ML INJ (07:37)
[2025-05-15] MEDS: LIDOCAINE HCL 2% 400 MG/20 ML MDV INJ (07:37)
[2025-05-15] MEDS: IOHEXOL 240 MG/ML - 10 ML VIAL INJ (07:37)
[2025-05-15] MEDS: METHYLPREDNISOLONE ACETATE 40 MG/ML VIAL INJ (07:38)
[2025-05-15 07:39] VITALS: BP 115/72; PULSE 67; O2SAT 100
--- NOTE | 2025-05-15 07:39 | W.PM.PROCNOT ---
Date of procedure: 05/15/25 Pre-op diagnosis: Pain due to right sacroiliitis Post-op diagnosis: same as pre-op Procedure: Procedure: Right sacroiliac joint injection Medications: Bupivacaine 0.25% 3cc, depomedrol 40mg After informed consent was obtained, the patient was brought to the medical procedure unit and placed in the prone position, when a timeout was completed verifying correct patient, procedure, site, positioning, implant, and/or special equipment.? The skin overlying the area was prepped and draped in standard sterile fashion using alcohol.? A 25-gauge needle was inserted towards the right sacroiliac joint under direct fluoroscopic imaging.? Needle tip was advanced until the joint was encountered.? We instilled a total of 2 mL of solution.? Postoperatively needles were removed.? The patient tolerated the procedure well without complication.? The patient reported reduction in pain symptoms postoperatively. Anesthesia: Local Surgeon: Almaz Brooke Pathology: none sent Condition: stable Disposition: no change
== END 2025-05-15 07:40 | disposition home or self-care (01) ==
PROVIDERS: PCP Family Medicine; Visit Provider Anesthesiology
DX: M46.1 Sacroiliitis, not elsewhere classified (principal)
CPT/HCPCS: 27096; J0665; J1010; Q9966

== ENCOUNTER 2025-05-25 15:07 | Outpatient (OUT) | payer OTHER, SELFPAY ==
--- NOTE | 2025-05-25 15:09 | PM.CN ---
Consult Note: HPI Data of Consult Patient: known to practice within the last 3 years Consult date: 05/25/25 Requesting Physician: Yesi Caballero NP Primary Care Provider: Av Caro MD Consult Narrative Reason for consult: SIJ f/u Narrative: Fabian Melgar a pleasant 49 year old male presents for evaluation of chronic low back pain > 20 years unresponsive to greater than 6 weeks of provider guided HEP, heat, ice, tylenol, nsaids, and oral steroids. recently underwent Right L5-S1, S1-2 transforaminal epidural steroid injection with significant improvement in radicular/NC symptoms. Pt reporting >50% improvement. Utilizing gabapentin 100-200mg HS, baclofen 5-10mg TID PRN pain/spasms, with benefit without side effects. no longer finding benefit to celebrex. pain today 1-2/10 increasing to 7/10 in the AM and with overactivity. denies fall/injury. noting 50% improvement in right SIJ pain. continues to have moderate to severe right low back pain in the AM. cc:: CC: Yesi Caballero NP Review of Systems ROS Musculoskeletal Reports: back pain and joint pain; Denies: extremity pain PFSH PFSH Medical History Eczema ?L30.9 - Dermatitis, unspecified (ICD-10) Back pain ?M54.9 - Dorsalgia, unspecified (ICD-10) Surgical History H/O colonoscopy ?Z98.890 - Other specified postprocedural states (ICD-10) H/O lumbar discectomy ?Z98.890 - Other specified postprocedural states (ICD-10) Family History Other Colon cancer Family history of hypertension Social History Within the past year, how often did you have a drink containing alcohol: 2-4 times a month Smoking status: Current every day smoker Non-prescribed substance use: denies use 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 Highest level of school completed/degree received: high school graduate Meds Home Medications and Allergies Home Medications ?Medication ?Instructions ?Recorded ?Confirmed ?Type baclofen 10 mg tablet mg 09/08/25 History celecoxib 100 mg capsule mg 04/17/25 History gabapentin 100 mg capsule mg 04/17/25 History Allergies Allergy/AdvReac Type Severity Reaction Status Date / Time No Known Drug Allergies Allergy Verified 04/17/25 13:48 Exam Constitutional Documenting provider has reviewed patient's vital signs: yes Common normals: no apparent distress, oriented x3, healthy appearing, alert and well nourished General appearance: cooperative HENMT Common normals: normocephalic, hearing grossly normal bilaterally and moist oral mucous membranes Head and scalp: normocephalic Eye Common normals: PERRL Pupil: PERRL Neck & C-Spine Common normals: full ROM General: normal visual inspection Chest Common normals: inspection of chest normal Respiratory Common normals: normal respiratory effort, no retractions and no use of accessory muscles Back & Pelvis Lumbar spine/lower back: pain with ROM, lumbar spinal tenderness (right l4-5 l5-s1 facet loading ) Lumbar spinal tenderness location: L4 and L5 and straight leg raise negative bilaterally Sacroiliac joints: SI joints normal Other: right sij negative mercy(patricks), gaenslens, thigh thrust, compression test strength 5/5 in BLE sensation intact BLE Neuro Common normals: oriented x3 Sensorium/orientation: alert Psych Common normals: mental status grossly normal, thought process normal, cooperative, affect normal, speech normal and activity/motor behavior normal Speech: normal speech Thought process: normal thought process Results Additional Findings Additional findings: If on a controlled substance or opioids, I have checked an [place]AR[place] report on this patient and there are no aberrancies noted in the prescribing history.??If on a controlled substance or opioid a drug screen was completed and reviewed within the last year, and if there has not been a drug screen completed we ordered one today to monitor higher risk, state monitored pain medication use. As part of providing excellent, safe, comprehensive care, the following was completed at our patient's visit: 1. A medication reconciliation and review to ensure accurate knowledge of current/active medications, including asking our patients to inform us about any gyfm-fpa-[id number] medications or herbal remedies/nutritional supplements/alternative remedies. 2. A review to specifically ensure our patients have had annual screening for screening for depression, screening for tobacco use, and screening for unhealthy alcohol use. For concerning screenings had a discussion with the patient, provided patient education, and recommended follow-up with primary care provider when appropriate. If patient noted with a risk of falling, they received education on strength, gait, and balance training to prevent future risk of falling. Portions of this note may have been carried over from the previous visit and updated as appropriate. Please note this office utilizes paper charting in addition to the electronic medical record. A list of current medications, vitals, and PMH is available there as the clinical staff outside of myself do not have access to [facility] charting during the clinic day operations. As part of providing quality comprehensive care the current medications, vitals, and PMH were reviewed in the paper chart. Assessment and Plan Assessment and Plan (1) Sacroiliitis: (2) Lumbar stenosis with neurogenic claudication: (3) Lumbar neuritis: (4) Lumbar spondylosis: Plan The patient has had over 3 months of moderate to severe low back pain with functional impairment and inadequate response to conservative care including NSAIDS (unless there are contraindication such as concurrent blood thinners), multiple oral or topical pain medications, and home exercise program/physical therapy.? Patient has completed >6 weeks of guided home exercise program and/or formal physical therapy program without relief of their symptoms.? The Oswestry Disability Index was completed, and the patient scored a 18%.? right L4-5 L5-S1 MBB x2 in consideration of RFA for facet mediated pain under fluoroscopy continue HEP as tolerated declining NS consultation at this time f/u after each injection
--- OUTSIDE RECORDS SUMMARY | 2025-05-25 15:09 | XMS_ITS | Clinical Summary ---
Author Organization [facility] Address [address] [place] [address] Care Team Providers Care Licensing Worker Name Role Phone Unavailable Primary Care Provider Unavailabl e Allergies No known active allergies Medications baclofen (Lioresal) 10 MG tabletIndicatio ns:Sacroiliitis Take 1 tablet (10 mg) by mouth in the morning and 1 tablet (10 mg) before bedtime. Do all this for 5 days. 10 tablet 04/02/2025 Active Encounters Date Type Department Care Team Description 04/02/2025 9:20 AM EDT Office Visit [facility] [address] [facility] [address] [place] [address] Lisa Roberson, CASSIE Lumbar region somatic dysfunction [...]
--- OUTSIDE RECORDS SUMMARY | 2025-05-25 15:10 | XMS_ITS | CCD ---
Author Organization [facility] CliniSyky Care Team Providers Care Wood Last Maker Name Role Phone AIMEE .VANESSA Consulting Unavailable [...] Care Unavailable Steff Caro Primary Care Physician [phone] Ondina Nelson Unavailable Unavailable MD Steff Caro Primary Care Provider [phone] MD Obi De La Paz Attending Provider [...] Unavailuche Brooke MD, Almaz Palacio Attending Unavailable Edwardo LUND, Almaz Palacio Attending Unavailable Medications Current Medications Medication Drug Class(es) Dates Sig (Normalized) Sig (Original) acetaminophen 325 mg / HYDROcodone bitartrate 5 mg oral tablet (1 source) Opioid Agonist Start: 9 take 1 tablet by mouth every six hours Hydrocodone-Acetamino phen ([place]) 5-325 mg tablet Active 1 TAB PO [...] us for your care. Jose Guadalupe Monae [facility] General Surgery Office/Clini c Noteon 05-11-2024 [...] Primary malignant neoplasm of colon: Father. Normal [facility] Comment on above: Result Comment: Elec tronically Signed By: AROLDO LUND, Obi Taylor.br\Date and Time Signed: 05/11/24 16:14 EDT Reminderson 05-06-2024 Reminders Reminders From: Jud Holden LPN To: N - Clinical; Sent: 05/06/2024 08:33:28 EDT Show up: 03/27/2029 07:00:00 EDT Subject: colonoscopy recall Due Date/Time: 04/27/2029 07:00:00 EDT Reminder/Recall Patient due for surveillance colonoscopy 04/27/2029 due to family history of colon cancer. Normal [facility] Mario Alberto 04-27-2024 L Specimen: [id number] Received: 04/28/24 Status: SALOME Pepper Num: [id number] Spec Type: Surgical Subm Dr: Obi De La Paz MD FACS Tissues: A Colon Biopsy (SIGMOID POLYP) Procedures: HE/2, Gross/Micro L4 Age/ Patient Sex Location Account Attending Physician Obi Melgar 48/M LABELL [id number] Obi De La Paz MD FACS SPEC NUM: [id number] RECD: 04/28/24 STATUS: SALOME REMilana NUM: [id number] MARIAMA: 04/27/[address]: Obi De La Paz MD FACS ENTERED: 04/28/[address] [facility] [address]: SPEC TYPE: Surgical DEPT: SÁNCHEZ SIMMONS ENTERED BY: [id number] RECV BY: [id number] ORDERED: HE/2, Gross/Micro L4 ORDERED: HE/2, Gross/Micro [...] CPT Codes 88 305 -------- -------- Specimen: [id number] Received: 04/28/24 Status: SALOME Pepper Num: [id number] Spec Type: Surgical Subm Dr: Obi De La Paz MD FACS Tissues: A Colon Biopsy (SIGMOID POLYP) Procedures: MARY/Alfreda, Gross/Micro L4 -------- Patient: Obi Melgar [id number] (Continued) -------- Signed (signature on file) Oscar Diaz MD 05/03/24 1554 Normal [facility] Ambulatory Visit Summaryon 0 [...] for choosing us for your care. Normal [facility] Physician Referralon 024 Physician Referral [phone] [id number]. 00TIFF Normal [facility] XR LSPINE W_OBLS AND FLEX_EX Ton 04-29-2022 [...] by: EPHRAIM THAPA Date: 2022-04-29 13:15 Normal [facility] XR Finger Righton 03-30-2022 XR Finger [...] by MURTAZA VILLASEÑOR on 03/30/2022 1036 Normal [facility] Specialist Vital Signs Date Time Vital Sign Value Performing Clinician Facility 04-02-2025 09:28-0400 Body temperature 97.3 [degF] Lisa Garcia WIRE CHARGER Work Phone: [facility] 04-02-2025 09:28-0400 Diastolic blood pressure 76 mm[Hg] Lisa Amezcuachol WIRE CHARGER Work Phone: [facility] 04-02-2025 09:28-0400 Heart rate 73 /min Lisa Garcia WIRE CHARGER Work Phone: [facility] 04-02-2025 09:28-0400 SaO2% (BldA) [Mass fraction] 97 % Lisa Garcia WIRE CHARGER Work Phone: [facility] 04-02-2025 09:28-0400 Systolic blood pressure 112 mm[Hg] Lisa Amezcuachol WIRE CHARGER Work Phone: [facility] 03-30-2024 15:49-0400 Blood Pressure Location Obi NILL [facility] 03-30-2024 15:49-0400 Diastolic blood pressure 64 mm[Hg] Obi NILL [facility] 03-30-2024 15:49-0400 Heart rate 68 /min Obi NILL [facility] 03-30-2024 15:49-0400 Respiratory rate 16 /min Obi NILL [facility] 03-30-2024 15:49-0400 Systolic blood pressure 116 mm[Hg] Obi NILL [facility] Encounters Encounter Date Encounter Type Care Provider Facility Start: 05-15-2025 End: 05-15-2025 ambulatory Almaz Brooke MD Facility:[facility] Start: 04-17-2025 End: 04-17-2025 ambulatory Almaz Brooke MD Facility: [facility] Start: 04-02-2025 End: 04-02-2025 ambulatory LISA GARCIA Not Available Start: 04-02-2025 End: 04-02-2025 Office outpatient new 45 minutes Lisa Karol WIRE CHARGER [facility] Comment on above: Lumbar region somati c dysfunction (Primary Dx); Sacroiliitis Start: 05-11-2024 End: 05-11-2024 ambulatory [facility] Start: 05-11-2024 End: 05-11-2024 [facility] Start: 04-27-2024 End: 04-27-2024 ambulatory MD Steff Caro Work Phone: [facility] Work Phone: Start: 04-27-2024 End: 04-27-2024 Departed Referred MD Steff Caro Work Phone: [facility] Start: 04-27-2024 End: 04-27-2024 ambulatory Obi R NILL Facility:CD:[id number] Start: 03-30-2024 End: 03-30-2024 ambulatory Obi R NILL Facility: [facility] Start: 03-30-2024 End: 03-30-2024 [facility] Start: 02-03-2024 End: 02-03-2024 ambulatory Obi R NILL Facility: [facility] Start: 02-03-2024 End: 02-03-2024 Patient encounter procedure Obi R NILL [facility] Start: 12-28-2023 ambulatory Obi DE LA PAZ Facility:[facility] Start: 12-30-[address] STEFF CARO . Facili ty:[facility] Start: 12-04-2022 ambulatory VANESSA AIMEE . Facility:[facility] Start: 09-04-2022 End: 09-05-2022 ambulatory VANESSA YU . Facility:[facility] Start: 06-05-2022 End: 06-06-2022 ambulatory VANESSA YU . Facility:[facility] Start: 05-13-2022 End: 05-13-[address] RUSTY CHILDERS . Facility:[facility] Start: 04-29-2022 End: 04-30-2022 ambulatory Ephraim Thapa Facility:[facility] Start: 03-29-2022 End: 03-30-[address] STEFF CARO . Facility: Procedures Date Procedure Procedure Detail Performing Clinician Start: 04-27-2024 Colonoscopy Obi [facility] Colonoscopy Obi RICCARDOL Excision of lumbar intervertebral disc Obi DE LA PAZ Payers Date Payer Category Payer Private Health Insurance [employer] [id number] 2024 Self-pay [id number] 2023 Unknown [id number] 2023 Unknown 2010 Unknown [id number] 1977 Unknown [id number] 2.16.840.1.801043.3.579.2. 593 1977 Unknown [id number] 2.16.840.1.195267.3.579.2. 593 1977 Unknown [id number] 2.16.840.1.724238.3.579.2. 593 1977 Unknown [id number] 2.16.840.1.032991.3.579.2. 593 1977 Unknown [id number] 2.16.840.1.957161.3.579.2. 593 1977 Unknown [id number] 2.16.840.1.735211.3.579.2. 593 1977 Unknown [id number] 2.16.840.1.849652.3.579.2. 593 1977 Unknown [id number] 2.16.840.1.789136.3.579.2. 593 1977 Unknown [id number] 2.16.840.1.134140.3.579.2. 727 1977 Unknown [id number] 2.16.840.1.209616.3.579.2. 727 1977 Unknown [id number] 2.16.840.1.378805.3.579.2. 727 1977 Unknown [id number] 2.16.840.1.855644.3.579.2. 727 1977 Unknown [id number] 2.16.840.1.447094.3.579.2. 727 1977 Unknown [id number] 2.16.840.1.538829.3.579.2. 1259 1977 Unknown [id number] 2.16.840.1.629778.3.579.2. 196 1977 Unknown [id number] 2.16.840.1.536906.3.579.2. 196 1959 Private Health Insurance [id number] Private Health Insurance [facility] [id number] Unknown [id number] 2.16.840.1.827806.3.579.2. 531 Social History Date Type Detail Facility Tobacco smoking status [facility] Sex Assigned At Male [facility] Start: 03-30-2024 Tobacco smoking status Heavy tobacco smoker (finding) [facility] Tobacco smoking status Never [facility] Start: 03-29-2019 Tobacco smoking status NHIS Smoker (finding) [facility] Start: 1975 Sex Assigned At Male F [facility] Tobacco smoking status NHIS Tobacco smoking consumption unknown [facility] Start: 1975 Sex assigned at Not on file [facility] Functional Status Date Assessment Result Facility 03-30-2024 Functional Status N/A [facility] History of Present illness Narrative 04-02-2025 Lisa [...] scheduled for an appointment with his paint tinter, which may be performing a steroid shot or ablation in the future. His last visit with the paint tinter was a year ago, and he has [...] patient's pain, supporting SI joint involvement. The kitvvimc-vfx-xgutcar test is negative. No signs of upper [...] with pain management. documented in this encounter [facility] Clinical Note 03-30-2024 Note Date [...] years ago; no asa or NSAID use; ebsp4ba daily; fmhx of colon cancer in patient's [...] Brother. Primary malignant neoplasm of colon: Father. 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 He has patchy hypoesthesia to [...] indicated. Patient agrees with this plan. [facility] Consultation note 06-05-2022 Note Date & Type [...] three months' time unless otherwise indicated. [facility] Consultation note 04-29-2022 Note Date & Type [...] to proceed. CC: Steff Caro M.D. [facility] Evaluation + Plan note Note Date & Type Note Facility Evaluation + Plan note No data available for this section [facility] Evaluation note Note Date & Type Note Facility Evaluation note No assessment information availa [facility] Work Phone: Evaluation note Note Date & Type Note Facility Evaluation note Diagnosis Lumbar region somatic dysfunction- Primary Nonallopathic lesion of lumbar region, not elsewhere classified Sacroiliitis Sacroiliitis, not elsewhere classified documented in this encounter [facility] Hospital Discharge instructions Note Date & Type Note Facility Hospital Discharge instructions No data available for this section [facility] Progress note Note Date & Type Note Facility Progress note No data available for this section [facility] Summary Purpose Family History No Family [...] section and content) DATE CREATED AUTHOR 04/03/2022 [facility] dical Specialist DATE CREATED AUTHOR AUTHOR'S ORGANIZ ATION 12/08/2022 [facility] DATE CREATED AUTHOR AUTHOR'S ORGANIZ ATION 05/06/2024 [facility] ysician Group DATE CREATED AUTHOR AUTHOR'S ORGANIZ ATION 05/13/2024 Monae Angelina [facility] ical Center DATE CREATED AUTHOR AUTHOR'S ORGANIZ ATION 04/03/2025 [facility] dical Specialists EPIC DATE CREATED AUTHOR AUTHOR'S ORGANIZ ATION 05/20/2025 [facility] Care team informatio n (unrecognized section and content) Team Status: Active Member Role Status Dates Steff Caro MD Primary Care Provider Active Team Status: Inactive Member Role Status Dates Steff Caro MD Primary Care Provider Active Start: April 27, 2024 End: April 27, 2024 Obi De La Paz MD [facility] Attending Provider Active Start: April 27, [...] BE BASED ON THE PRIMARY CLINICAL RECORDS. [employer] provides no warranty or guarantee of the accuracy or completeness of information in this document.
== END 2025-05-25 15:08 | disposition home or self-care (01) ==
LOC: PM 15:08
PROVIDERS: PCP Family Medicine; Visit Provider Nurse Practitioner
DX: M46.1 Sacroiliitis, not elsewhere classified (principal); M48.062 Spinal stenosis, lumbar region with neurogenic claudication; M54.16 Radiculopathy, lumbar region; M47.816 Spondylosis without myelopathy or radiculopathy, lumbar region
CPT/HCPCS: G0463

== ENCOUNTER 2025-07-03 11:44 | Day surgery (SDC) | payer OTHER, SELFPAY ==
--- OUTSIDE RECORDS SUMMARY | 2025-07-03 11:50 | XMS_ITS | Clinical Summary ---
Author Organization [facility] Healthcare Address [address] [place] [address] Care Team Providers Care Wastewater Technician Name Role Phone Unavailable Primary Care Provider Unavailabl e Allergies No known active allergies Medications MedicationSigDispense QuantityRefillsLast FilledStart DateEnd DateStatus baclofen (Lioresal) 10 MG tablet Indications:SacroiliitisTake 1 tablet (10 mg) by mouth in the morning and 1 tablet (10 mg) before bedtime. Do all this for 5 days. 10 tablet 5Active Encounters DateTypeDepartmentCare SlncQqlwqgnhgwb94/24/2025 9:20 AM EDTOffice Visit [facility] [address] [place] [address] Lisa Roberson, CASSIE Lumbar region somatic dysfunction (Primary Dx); Qrvhiajlrzle80/24/2025Travelfrom Last 3 Months Social History Tobacco UseTypesPacks/DayYears UsedDateSmoking Tobacco: Never AssessedSex and Gender InformationValueDate RecordedSex Assigned at BirthNot on fileLegal Sex Male10/22/2022 6:47 PM EDTGender IdentityNot on fileSexual OrientationNot on file Last Filed Vital Signs Vital SignReadingTime TakenCommentsBlood Zqpcekly423/7608 9:28 AM EDT Ewzxq236904/02/2025 9:28 AM KGOFwyxwjlhjyt15.3 ??C (97.3 ??F)04/02/2025 9:28 AM EDTRespiratory Rate--Oxygen Htanaifkww21%04/02/2025 9:28 AM EDTInhaled Oxygen Concentration--Xqgrxd22.9 kg (163 lb)03/30/2022 12:00 PM EYGXueymn661.1 cm (5' 10.5 )03/30/2022 12:00 PM EDTBody Mass Index23.0603/30/2022 12:00 PM EDT Plan of Treatment Not on file Insurance * Guarantor: Rachell Melgar TypeRelation to PatientDate of BirthPhone Billing AddressPersonal/LbbzngQeka48/03/1976 [facility] [address] [place] [phone]
--- OUTSIDE RECORDS SUMMARY | 2025-07-03 11:53 | XMS_ITS | CCD ---
Author Organization [facility]Syri Care Team Providers Care Health Therapist Name Role Phone AIMEE .VANESSA Consulting Unavailable CHILDERS ., DR RUSTY Patel Attending Unavailable CHILDERS ., DR RUSTY Patel Admitting Unavailable HOY ., DR ARTIS Primary Care Unavailable CHILDERS ., DR RUSTY Patel Consulting Unavailable CHILDERS ., DR URSTY Patel Attending Unavailable CHILDERS ., DR RUSTY [...] Unavailable MD Steff Caro Primary Care Provider [phone] MD Obi De La Paz Attending Provider [phone] Steff Caro Primary Care Unavailable Obi De [...] Almaz Palacio Attending Unavailable Medications Current Medications MedicationDrug Class(es)DatesSig (Normalized)Sig (Original)acetaminophen 325 mg / HYDROcodone bitartrate 5 mg oral tablet (1 source)Opioid AgonistStart: 25-46-3265jaft 1 tablet by mouth every six hours Hydrocodone-Acetaminophen ([place]) 5-325 mg tablet Active 1 TAB PO Q6H 10 3 March 29, 2019baclofen 10 mg oral tablet (2 sources)gamma-Aminobutyric Acid-ergic AgonistStart: 04-02-2025 End: 25-66-4254ziyl 1 tablet by mouth in the morningbaclofen (Lioresal) 10 MG tablet Indications: Sacroiliitis Take 1 tablet (10 mg) by mouth in the morning and 1 tablet (10 mg) before bedtime. Do all this for 5 days. 10 tablet 04/02/2025 04/07/2025 Activecyclobenzaprine hydrochloride 10 mg oral tablet (1 source)Muscle RelaxantStart: 89-37-2579vubb 10 mg by mouth three times daily Cyclobenzaprine Active 10 MG PO Three times daily March 29, 2019 12:00am methylPREDNISolone (2 sources)CorticosteroidStart: 04-02-2025 End: 92-04-6618szxykmSYYTGFGoeutx (Medrol Dospak) 4 MG tablets Indications: Lumbar region somatic dysfunction Takeas directed on package. 21 tablet 04/02/2025 04/09/2025 Activenaproxen 500 mg oral tablet (1 source)Nonsteroidal Anti-inflammatory DrugStart: 15-11-5709oznf 1 tablet by mouth twice dailyNaproxen (Naprosyn) 500 mg tablet Active 500 MG PO Twice daily March 29, 2019 12:00ampredniSONE 20 mg oral tablet (1 source)Start: 41-72-5059wzxu 60 mg by mouth once dailyPrednisone Active 60 MG PO Daily March 29, 2019 12:00am Problems Active Problems Problem ClassificationProblemDateDocumented DateEpisodic/ChronicAllergic reactions (3 sources)Jgxjbk51-94-8732SfvgunjjEdevo bone disease and musculoskeletal deformities (2 sources)Somatic dysfunction of lumbar region; Translations: [Segmental and somatic dysfunction of lumbar region]43-23-2545KbqokefaPjrsa screening for suspected conditions (not mental disorders or infectious disease) (1 source)Screening for malignant neoplasm of colon done; Translations: [Encounter for screening for malignant neoplasm of colon]Onset: 03-30-2024 EpisodicResidual codes; unclassified (2 sources)Family history of malignant neoplasm of digestive organ; Translations: [Family history of malignantneoplasm of digestive organs]Onset: 38-78-0783CkiqqiwrVeudizqo codes; unclassified (2 sources)Family history of cancer of ghkmi86-56-9027EwiemgnaJdsupiwbmae; intervertebral disc disorders; other back problems (6 sources)Other spondylosis with radiculopathy, lumbar region; Translations: [Inflammation of sacroiliac joint]Onset: 86-21-3833LelvdvdFicrzdrsyyl; intervertebral disc disorders; other back problems (5 sources)Radiculopathy, lumbar region; Translations: [Sciatica]Onset: 33-97-3002BtwvoznzGyvhflzuatrm (1 source)LOW BACK PAIN, UNSPECIFIED; Translations: [LOW BACK PAIN, UNSPECIFIED] Onset: 75-56-4647Nmbtvcqffmjz (2 sources)Patient encounter mijubw40-82-3776 Past or Other Problems Problem ClassificationProblemDateDocumented DateEpisodic/ChronicOther connective tissue disease (1 source)Pain in left leg; Translations: [PAIN IN LEFT LEG]Onset: 05-01-2022 EpisodicResidual codes; unclassified (4 sources)Procedure and treatment not carried out due to patient leaving prior to being seen by health care provider; Translations: [PROC AND TX NOT CARRIED OUT PT LEAVE]Onset: 76-47-2252Wbvbbhfg Results Test NameValueInterpretationReference RangeFacilityAmbulatory Visit Summaryon 68-42-6014Mapirkfqyx Visit SummaryAmbulatory Visit Summary OBI MELGAR :1975 Visit Date:05/11/2024 Ambulatory Visit Instructions Your Care Team Attending Physician - AROLDO LUND, Obi Tirado Primary Care Physician - Steff Caro MD Procedures Performed Colonoscopy (04/27/2024), Colonoscopy, Lumbar discectomy. [...] you for choosing us for your care. [facility] Office/Clinic Noteon 57-43-3094Yoquxuc Surgery Office/Clinic NoteGeneral Surgery Office/Clinic Note Chief Complaint post operative follow up HPI Staff 14 day post operative follow up post colonoscopy with sigmoid polypectomy. History of Present Illness f/o colonoscopy with removal of small hyperplastic sigmoid colon polyp; doing well; denies abd painor blood in stools. Review of Systems ROS - Provider Constitutional: no fever, no sweats, no weight loss. Eyes: no glasses, no blurred vision, no visual loss. ENMT: no dentures, no hoarseness, no swallowing difficulties, no hearing loss, no ear infection(s),no nose bleeds. Cardiovascular: normal blood pressure, no [...] Hypertension: Brother. Primary malignant neoplasm of colon: Father.[facility] Comment on above:Result Comment: Electronically Signed By: AROLDO LUND, Obi Taylor.br\Date and Time Signed: 05/11/24 16:14 EDTReminderson 94-01-8412Ochlkezta Reminders From: Jud Holden LPN To: GSN - Clinical; Sent: 05/06/2024 08:33:28 EDT Show up: 03/27/2029 07:00:00 EDT Subject: colonoscopy recall Due Date/Time: 04/27/2029 07:00:00 EDT Reminder/Recall Patient due for surveillance colonoscopy 04/27/2029 due to family history of colon cancer.[facility] CenterLon 14-73-5074RPopidoxo: [id number] Received: 04/28/24 Status: SALOME Rust Num: [id number] Spec Type: Surgical Subm Dr: Obi De La Paz MD FACS Tissues: A Colon Biopsy (SIGMOID POLYP) Procedures: HE/2, Gross/Micro L4 Age/ Patient Sex Location Account Attending Physician Obi Melgar 48/M LABELL [id number] Obi De La Paz MD FACS SPEC NUM: [id number] RECD: 04/28/24 STATUS: SALOME REQ NUM: [id number] MARIAMA: 04/27/[address]: Obi De La Paz MD FACS ENTERED: 04/28/[address] [facility] [address]: SPEC TYPE: Surgical DEPT: SÁNCHEZ SIMMONS ENTERED BY: [id number] RECV BY: [id number] ORDERED: CHILO Gross/Micro L4 ORDERED: MARYAlfreda Gross/Micro L4 Pathological Diagnosis Sigmoid polyp: Detached fragments of hyperplastic colonic mucosa consistent with hyperplastic polyp. Clinical Information Sigmoid polyp Gross Description The specimen was received in formalin with the patient's name and sigmoid polyp and consists of a single burgos portion of soft tissue measuring 0.2 cm in greatest dimension. The specimen is entirely submitted in cassette A1. CPT Codes 88 305 Specimen: [id number] Received: 04/28/24 Status: SALOME Pepper Num: [id number] Spec Type: Surgical Subm Dr: Obi De La Paz MD FACS Tissues: A Colon Biopsy (SIGMOID POLYP) Procedures: CHILO, Gross/Micro L4 Patient: Obi Melgar [id number] (Continued) Signed (signature on file) Oscar Diaz MD 05/03/[address] [place] [address] Physician GroupAmbulatory Visit Summaryon 03-30-2024 Ambulatory Visit SummaryAmbulatory Visit Summary OBI MELGAR :1975 Visit Date:03/30/2024 [...] you for choosing us for your care. [facility] CenterPhysician Referralon 12-29-2023 Physician [id number]#1.00TIFFNoUpper Valley Medical CenterXR LSPINE W_OBLS AND FLEX_EXTon 26-20-0799YJ LSPINE W_OBLS AND FLEX_EXTEXAMINATION: XR LSPINE W_OBLS AND FLEX_EXT HISTORY: Lumbar [...] Electronically authenticated by: EPHRAIM THAPA Date: 2022-04-29 13:15NMercy Health [address] Charles HospitalXR Finger Righton 70-65-9558KN Finger RightEXAM: CLINICAL HISTORY: __ FINDINGS: Bone mineralization is normal. No acute fracture, dislocation or significant arthritic changes are seen. No significant joint space effusion is present. Soft tissues are without abnormal calcifications or radiopaque foreign body. No active erosive changes are identified. IMPRESSION: Normal skeletal appearance. Report reported and signed by MURTAZA VILLASEÑOR on 03/30/2022 1036NormalNorthern [place] Restaurant Host/Hostess Vital Signs Date TimeVital SignValuePerforming EhdkhgdsgPvaaptwr41-93-7424 09:28-0400Body aoypfbtlxcd15.3 [degF]Lisa Garcia MACHINIST MATE Work Phone: [facility] HospitalNbecsfyqzp78-70-2411 09:28-0400Diastolic blood dbuhzoxf86 mm[Hg]Lisa Garcia MACHINIST MATE Work Phone: [facility] HospitalLqkcahrqsm93-80-0435 09:28-0400Heart rate73 /min Lisa Garcia MACHINIST MATE Work Phone: [place] [address]Jvehbguqou82-30-4753 09:28-0355UyL6% (BldA) [Mass fraction]97 %Lisa Garcia MACHINIST MATE Work Phone: [facility] HospitalWjetgexsin90-89-8843 09:28-0400Systolic blood mm[Hg]Lisa Garcia MACHINIST MATE Work Phone: [facility] HospitalTcdgjsyrzp49-52-8755 15:49-0400Blood Pressure LocationMichael NILL 450-2884Fsekom-VsxkuTrumbull Memorial Hospital08-21-2024 15:49-0400Diastolic blood mm[Hg]Obi NILL [phone]-FnjgjTrumbull Memorial Hospital08-21-2024 15:49-0400Heart rate68 /minMichael NILL 476-5851Wmrpjo-Jllze General Surgery Ubstoldd99-97-6866 15:49-0400Respiratory rate16 /minMichael NILL 560-7832Nkwybf-DgwceOhiohealth O'Bleness Hospitalue08-21-2024 15:49-0400Systolic blood mm[Hg]Obi NILL [phone]-NkvviTrumbull Memorial Hospital Encounters Encounter DateEncounter TypeCare ProviderFacilityStart: 05-15-2025 End: 10-80-2067dibunhvcmmTkzcdql Vytautas Giedraitis MDFacility:PM [place] Start: 04-17-2025 End: 85-76-6951tjbrkqcfdnUepwoni Vytautas Giedraitis MDFacility:[facility] [place] Start: 04-02-2025 End: 09-15-6484ortrxayknxHIX WARCHOLNot AvailableStart: 04-02-2025 End: 85-23-8794Pzytqr outpatient new 45 minutesAmy Warchol MACHINIST MATE Work Phone: [facility] CareComment on above:Lumbar region somatic dysfunction (Primary Dx); SacroiliitisStart: 05-11-2024 End: 27-24-2567xogrssvjcuFfwfujo R NILLFacility: BellevueStart: 05-11-2024 End: 33-99-8687Vafmxen encounter procedureMichael R NILL [phone]-PnevkC[facility] Clinic [facility] [place] Start: 04-27-2024 End: 16-13-6455xiyepcmtvrOV Steff M Hoy Work Phone: [facility] Work Phone: Start: 04-27-2024 End: 95-57-5829Yvqjxgmb ReferredMD Steff Hoy Work Phone: [facility]-LAB Path Spec Mary HospStart: 04-27-2024 End: 98-13-9999swugqiihcuVupaxop R NILLFacility:CD:[id number]: 03-30-2024 End: 20-98-4903tvivcxfuhcAyuuyao R NILLFacility:[facility]ertart: 03-30-2024 End: 75-98-4914Dtshhav encounter procedureMichael R NILL [phone]-Uexuw General Surgery Mary Start: 02-03-2024 End: 73-25-8125xtirgzktgvQcpjnqs R NILLFacility:[facility]ueStart: 02-03-2024 End: 03-26-0256Wanuafe encounter procedureMichael R NILL [phone]-NuytqC[facility] Clinic [facility] [place] Start: 73-86-5865zlbyobcygeLnklxwf NILLFacility:[facility] Centertart: 41-48-1926vxjrbeitppHB STEFF HOY .Facility:C4Dmupe: 12-04-2022 ambulatoryJILL YU .Facility:F6Wtxpx: 09-04-2022 End: 13-77-1588uonkazjtwbTHRA YU .Facility:O5Ympho: 06-05-2022 End: 74-14-1129qtvhodzyxhUPSK YU .Facility:I9Hfajb: 05-13-2022 End: 57-80-1577hklwqdjdckTE RUSTYNAREN CHILDERS .Facility:O5Qyuco: 04-29-2022 End: 39-10-5716zxtvedwuoyBnwvki ZieberFacility:B8Onxcq: 03-29-2022 End: 61-10-5555ajsxatrrizBL STEFF HOY .Facility: Procedures DateProcedureProcedure DetailPerforming ClinicianStart: 14-60-1282Sxkcwwmpicz Obi NILL ColonoscopyMichael NILL Excision of lumbar intervertebral discMichael NILL Payers DatePayer CategoryPayerPolicy [id number] Health InsuranceMEDICAL MUTUAL [id number]-rne [id number] Aohczjx51-05-6785FvwgqzbTHD67[id number] 2..1.877548.3.57[id number] 2..1.543879.3.57[id number] 2..1.271569.3.579.2.43226-66-6767Mpyesbc8983212 2..1.927060.3.579.[id number] 2..1.519339.3.57[id number] 2..1.299329.3.57[id number] 2..1.116142.3.57[id number] 2..1.204479.3.57[id number] 2.16.840.1.021130.3.57[id number] 2.16.840.1.736350.3.57[id number] 2.16.840.1.552136.3.57[id number] 2.16.840.1.735011.3.579.2.33936-31-3610Xawgqvv79111275 2.16.840.1.085030.3.57[id number] 2.16.840.1.014680.3.579.2.991287-82-5779Mvtvzcu646421516 2.0.1.963501.3.579.[id number] 2.16.840.1.117260.3.579.2.78480-54-5681Wxnwsdw Health [id number] Health InsurancePike Community [id number] [id number]-[id number] [id number] 2.840.1.252680.3.579.2.531 Social History DateTypeDetailFacilityTobacco smoking statusTrumbull Memorial Hospital Sex Assigned At [facility] Start: 49-41-2394Lenodzi smoking statusHeavy tobacco smoker (finding)[facility] HospitalTobacco smoking statusNeverFlower Hospitaltart: 20-89-7628Hzxutqs smoking status NHISSmoker (finding) [facility] Hospitaltart: 59-55-5168Djb Assigned At [facility] HospitalTobacco smoking status NHISTobacco smoking consumption unknownNOMS HealthcareStart: 91-67-4694Sng assigned at birthNot on [facility] Functional Status QmkkHvgffumryaEfhswvJrtnxtsf26-22-7995Udgvpclswf StatusN/AFcathy-Pepito General Surgery Mary History of Present illness Narrative 04-02-2025 Note Date & LrxeRpdkVaikfssv54-09-3801 History of Present illness Narrative* Lisa Garcia, MACHINIST MATE - 04/02/2025 9:20 AM EDT Images from [...] scheduled for an appointment with his paint specialist, which may be performing a steroid shot or ablation in the future. His last visit with the paint specialist was a year ago, and he has [...] patient's pain, supporting SI joint involvement. The ugiybgqi-kvz-ifckruz test is negative. No signs of upper [...] in with pain management. documented in [facility] encounterSaint [facility] Clinical Note 03-30-2024 Note Date & StomEbtdYfsoosvx96-08-1978 NoteGeneral Surgery Office/Clinic Note Chief Complaint consultation for colonoscopy HPI [...] years ago; no asa or NSAID use; ljms9ls daily; fmhx of colon cancer in patient's father, dx at age 62, no fmhx of IBD. Review of Systems PHQ Score Initial Depression Screen Score: 0 SCORE ROS - Provider Constitutional: no fever, no sweats, no weight loss. Eyes: no glasses, no blurred vision, no visual loss. ENMT: no dentures, no hoarseness, no swallowing difficulties, no hearing loss, no ear infection(s),no nose bleeds. Cardiovascular: normal blood pressure, no [...] Hypertension: Brother. 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 He has patchy hypoesthesia [...] unless otherwise indicated. Patient agrees with this plan.[facility] Consultation note 06-05-2022 Note Date & IirlGrnpXlwdopmw10-90-9191 NoteCONSULTATION CONSULTATION DATE: 06/05/2022 HISTORY OF PRESENT ILLNESS: [...] him in three months' time unless otherwise indicated.[facility] Consultation note 04-29-2022 Note Date & DmafPtbtIxyckpjv81-25-1710 NoteCONSULTATION CONSULTATION DATE: 04/29/2022 CHIEF COMPLAINT: Low back [...] would like to proceed. CC: Steff Caro M.D.[facility] Evaluation + Plan note Note Date & TypeNoteFacilityEvaluation + Plan note No data available for this section [facility] Evaluation note Note Date & TypeNoteFacilityEvaluation noteNo assessment information available [facility] Work Phone: Evaluation note Note Date & TypeNoteFacilityEvaluation note* Diagnosis Lumbar region somatic dysfunction- Primary Nonallopathic lesion of lumbar region, not elsewhere classified Sacroiliitis Sacroiliitis, not elsewhere classified documented in this encounter [facility] Discharge instructions Note Date & TypeNoteFacilityHospital Discharge instructions No data available for this section [facility] Progress note Note Date & TypeNoteFacilityProgress note No data available for this section [facility] Summary Purpose Family History No Family [...] section and content) DATE CREATED AUTHOR 04/03/2022 [facility] Restaurant Host/Hostess DATE CREATED AUTHOR AUTHOR'S ORGANIZ ATION 12/08/2022 [facility] DATE CREATED AUTHOR AUTHOR'S ORGANIZ ATION 05/06/2024 [facility] DATE CREATED AUTHOR AUTHOR'S ORGANIZ ATION 05/13/2024 [facility] DATE CREATED AUTHOR AUTHOR'S ORGANIZ ATION 04/03/2025 [facility] DATE CREATED AUTHOR AUTHOR'S ORGANIZ ATION 05/20/2025 [facility] Patient Care team informatio n (unrecognized section and content) Team Status: Active Member Role Status Dates Steff Caro MD Primary Care Provider Active Team Status: Inactive Member Role Status Dates Steff Caro MD Primary Care Provider Active Start: April 27, 2024 End: April 27, 2024Mictito De La Paz MD FACSAttending ProviderActiveStart: April 27, 2024 End: April 27, 2024 [...] BE BASED ON THE PRIMARY CLINICAL RECORDS. [facility] blabfeed [facility]. provides no warranty or guarantee of the accuracy or completeness of information in this document.
[2025-07-03 12:19] VITALS: BP 120/64; PULSE 82; TEMP 37.9; O2SAT 97
[2025-07-03 12:59] VITALS: BP 109/60; BP 114/69; PULSE 71; PULSE 73; O2SAT 96; O2SAT 97
[2025-07-03] MEDS: BUPIVACAINE HCL 0.25% PF 25 MG/10 ML VIAL INJ (12:59)
[2025-07-03] MEDS: IOHEXOL 240 MG/ML - 10 ML VIAL INJ (12:59)
[2025-07-03] MEDS: LIDOCAINE HCL 2% 400 MG/20 ML MDV 15 ML INJ (12:59)
--- NOTE | 2025-07-03 13:00 | W.PM.PROCNOT ---
Date of procedure: 07/03/25 Pre-op diagnosis: Pain due to lumbar spondylosis Post-op diagnosis: same as pre-op Procedure: Procedure: Right L4-5, L5-S1 medial branch block Medications: Bupivacaine 0.25% 3cc The patient was seen and examined in the preoperative holding area.? An informed consent was obtained and placed on the chart.? The patient was brought to the medical procedure unit and placed in the prone position.? A timeout was completed verifying correct patient, procedure site, positioning, plan, and special equipment.? Using aseptic technique, the needle was placed at right L4. Under direct fluoroscopic visualization a Quincke-tipped spinal needle was advanced to the junction of the superior articulating process with the transverse process at the designated medial branch segment.? Preceded by negative aspiration, the above-mentioned injectate was placed in 1 mL aliquots.? The procedure was completed at right L5, S1.? The needle was removed and insertion site was covered.? The patient was taken to the postprocedural recovery area and monitored for an appropriate length of time before found suitable for discharge in the company of a responsible adult. Anesthesia: Local Surgeon: Almaz Brooke Pathology: none sent Condition: stable Disposition: no change
== END 2025-07-03 13:06 | disposition home or self-care (01) ==
PROVIDERS: PCP Family Medicine; Visit Provider Anesthesiology
DX: M47.816 Spondylosis without myelopathy or radiculopathy, lumbar region (principal); M54.50 Low back pain, unspecified; G89.29 Other chronic pain
CPT/HCPCS: 64493; 64494; J0665; Q9966

== ENCOUNTER 2025-07-05 13:43 | Outpatient (OUT) | payer OTHER, SELFPAY ==
--- OUTSIDE RECORDS SUMMARY | 2025-07-05 13:45 | XMS_ITS | Clinical Summary ---
Author Organization [facility] Address [address] [place] [address] Care Team Providers Care Security Screener Name Role Phone Unavailable Primary Care Provider Unavailabl e Allergies No known active allergies Medications MedicationSigDispense QuantityRefillsLast FilledStart DateEnd DateStatus baclofen (Lioresal) 10 MG tablet Indications:SacroiliitisTake 1 tablet (10 mg) by mouth in the morning and 1 tablet (10 mg) before bedtime. Do all this for 5 days. 10 tablet 5Active Social History Tobacco UseTypesPacks/DayYears UsedDateSmoking Tobacco: Never AssessedSex and Gender InformationValueDate RecordedSex Assigned at BirthNot on fileLegal Sex Male10/22/2022 6:47 PM EDTGender IdentityNot on fileSexual OrientationNot on file Last Filed Vital Signs Vital SignReadingTime TakenCommentsBlood Kfrgbeum349/7608 9:28 AM EDT Mlckb878904/02/2025 9:28 AM SGTTdhtlokimop89.3 ??C (97.3 ??F)04/02/2025 9:28 AM EDTRespiratory Rate--Oxygen Irvsguvpux14%04/02/2025 9:28 AM EDTInhaled Oxygen Concentration--Xtynep23.9 kg (163 lb)03/30/2022 12:00 PM ZCZTfwnva374.1 cm (5' 10.5 )03/30/2022 12:00 PM EDTBody Mass Index23.0603/30/2022 12:00 PM EDT Plan of Treatment Not on file Insurance
--- NOTE | 2025-07-05 14:09 | PM.CN ---
Consult Note: HPI Data of Consult Patient: known to practice within the last 3 years Consult date: 07/05/25 Requesting Physician: Yesi Caballero NP Primary Care Provider: Av Caro MD Consult Narrative Reason for consult: low back pain Narrative: Fabian Melgar a pleasant 49 year old male presents for evaluation of chronic low back pain > 20 years unresponsive to greater than 6 weeks of provider guided HEP, heat, ice, tylenol, nsaids, and oral steroids. Utilizing baclofen 5-10mg TID PRN pain/spasms, with benefit without side effects. patient has stopped gabapentin since last visit. pain today 3/10 increasing to 8/10 in the AM and with overactivity. denies fall/injury. recently underwent right L4-5 L5-S1 MBB with 100% improvement in pain while anesthetized, preop pain up to 8/10 post op pain 0/10 for at least 2 hjours. cc:: CC: Yesi Caballero NP Review of Systems ROS Musculoskeletal Reports: back pain PFSH PFSH Medical History Eczema ?L30.9 - Dermatitis, unspecified (ICD-10) Back pain ?M54.9 - Dorsalgia, unspecified (ICD-10) Surgical History H/O colonoscopy ?Z98.890 - Other specified postprocedural states (ICD-10) H/O lumbar discectomy ?Z98.890 - Other specified postprocedural states (ICD-10) Family History Other Colon cancer Family history of hypertension Social History Within the past year, how often did you have a drink containing alcohol: 2-4 times a month Smoking status: Current every day smoker Non-prescribed substance use: denies use 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 Highest level of school completed/degree received: high school graduate Meds Home Medications and Allergies Home Medications ?Medication ?Instructions ?Recorded ?Confirmed ?Type baclofen 10 mg tablet mg 04/17/25 History gabapentin 100 mg capsule mg 04/17/25 History ibuprofen 200 mg tablet (IBU-200) 200 mg PO Q8H 07/03/25 07/03/25 History Allergies Allergy/AdvReac Type Severity Reaction Status Date / Time No Known Drug Allergies Allergy Verified 07/03/25 12:18 Exam Constitutional Documenting provider has reviewed patient's vital signs: yes Common normals: no apparent distress, oriented x3 and alert General appearance: cooperative HENMT Common normals: normocephalic, hearing grossly normal bilaterally and moist oral mucous membranes Head and scalp: normocephalic Eye Common normals: PERRL Pupil: PERRL Neck & C-Spine Common normals: full ROM General: normal visual inspection Chest Common normals: inspection of chest normal Respiratory Common normals: normal respiratory effort, no retractions and no use of accessory muscles Back & Pelvis Lumbar spine/lower back: pain with ROM, lumbar spinal tenderness (right l4-5 l5-s1 facet loading ) Lumbar spinal tenderness location: L4 and L5 and straight leg raise negative bilaterally Sacroiliac joints: SI joints normal Other: right sij negative mercy(patricks), gaenslens, thigh thrust, compression test strength 5/5 in BLE sensation intact BLE Neuro Common normals: oriented x3 Sensorium/orientation: alert Psych Common normals: mental status grossly normal, thought process normal, cooperative, affect normal, speech normal and activity/motor behavior normal Speech: normal speech Thought process: normal thought process Results Additional Findings Additional findings: If on a controlled substance or opioids, I have checked an [place]AR[place] report on this patient and there are no aberrancies noted in the prescribing history.??If on a controlled substance or opioid a drug screen was completed and reviewed within the last year, and if there has not been a drug screen completed we ordered one today to monitor higher risk, state monitored pain medication use. As part of providing excellent, safe, comprehensive care, the following was completed at our patient's visit: 1. A medication reconciliation and review to ensure accurate knowledge of current/active medications, including asking our patients to inform us about any trxf-goa-rwqonic medications or herbal remedies/nutritional supplements/alternative remedies. 2. A review to specifically ensure our patients have had annual screening for screening for depression, screening for tobacco use, and screening for unhealthy alcohol use. For concerning screenings had a discussion with the patient, provided patient education, and recommended follow-up with primary care provider when appropriate. If patient noted with a risk of falling, they received education on strength, gait, and balance training to prevent future risk of falling. Portions of this note may have been carried over from the previous visit and updated as appropriate. Please note this office utilizes paper charting in addition to the electronic medical record. A list of current medications, vitals, and PMH is available there as the clinical staff outside of myself do not have access to [facility] charting during the clinic day operations. As part of providing quality comprehensive care the current medications, vitals, and PMH were reviewed in the paper chart. Assessment and Plan Assessment and Plan (1) Lumbar spondylosis: Plan The patient has had over 3 months of moderate to severe low back pain with functional impairment and inadequate response to conservative care including NSAIDS (unless there are contraindication such as concurrent blood thinners), multiple oral or topical pain medications, and home exercise program/physical therapy.? Patient has completed >6 weeks of guided home exercise program and/or formal physical therapy program without relief of their symptoms.? The Oswestry Disability Index was completed, and the patient scored a 18%.? right L4-5 L5-S1 MBB x2 in consideration of RFA for facet mediated pain under fluoroscopy continue HEP as tolerated declining NS consultation at this time f/u after each injection
== END 2025-07-05 13:44 | disposition home or self-care (01) ==
LOC: PM 13:43
PROVIDERS: PCP Family Medicine; Visit Provider Nurse Practitioner
DX: M47.816 Spondylosis without myelopathy or radiculopathy, lumbar region (principal)
CPT/HCPCS: G0463

== ENCOUNTER 2025-07-17 08:55 | Day surgery (SDC) | payer OTHER, SELFPAY ==
--- OUTSIDE RECORDS SUMMARY | 2025-07-17 08:59 | XMS_ITS | CCD ---
Author Organization [facility] Clini[facility] Care Team Providers Care Infrastructure Analyst Name Role Phone AIMEE .VANESSA Consulting Unavailable [...] Unavailable MD Steff Caro Primary Care Provider [phone] MD Obi De La Paz Attending Provider [phone] Steff Caro Primary Care Unavailable Obi De [...] 5 mg oral tablet (1 source)Opioid AgonistStart: 73-22-3836scmh 1 tablet by mouth every six hours Hydrocodone-Acetaminophen (Pettus) 5-325 mg tablet Active 1 TAB PO Q6H 10 3 March 29, 2019baclofen 10 mg oral tablet (2 sources)gamma-Aminobutyric Acid-ergic AgonistStart: 04-02-2025 End: 37-81-6713fldi 1 tablet by mouth in the morningbaclofen (Lioresal) 10 MG tablet Indications: Sacroiliitis Take 1 tablet (10 mg) by mouth in the morning and 1 tablet (10 mg) before bedtime. Do all this for 5 days. 10 tablet 04/02/2025 04/07/2025 Activecyclobenzaprine hydrochloride 10 mg oral tablet (1 source)Muscle RelaxantStart: 26-59-2131dfrz 10 mg by mouth three times daily Cyclobenzaprine Active 10 MG PO Three times daily March 29, 2019 12:00am methylPREDNISolone (2 sources)CorticosteroidStart: 04-02-2025 End: 35-29-8490bbezjiAZAIFQWrfhux (Medrol Dospak) 4 MG tablets Indications: Lumbar region somatic dysfunction Takeas directed on package. 21 tablet 04/02/2025 04/09/2025 Activenaproxen 500 mg oral tablet (1 source)Nonsteroidal Anti-inflammatory DrugStart: 27-42-4157mudo 1 tablet by mouth twice dailyNaproxen (Naprosyn) 500 mg tablet Active 500 MG PO Twice daily March 29, 2019 12:00ampredniSONE 20 mg oral tablet (1 source)Start: 32-36-4075dkbq 60 mg by mouth once dailyPrednisone Active 60 MG PO Daily March 29, 2019 12:00am Problems Active Problems Problem ClassificationProblemDateDocumented DateEpisodic/ChronicAllergic reactions (3 sources)Fuczcu25-22-9096XdsxniukMsufk bone disease and musculoskeletal deformities (2 sources)Somatic dysfunction of lumbar region; Translations: [Segmental and somatic dysfunction of lumbar region]99-58-4622VghrzvoeClmwp screening for suspected conditions (not mental disorders or infectious disease) (1 source)Screening for malignant neoplasm of colon done; Translations: [Encounter for screening for malignant neoplasm of colon]Onset: 03-30-2024 EpisodicResidual codes; unclassified (2 sources)Family history of malignant neoplasm of digestive organ; Translations: [Family history of malignantneoplasm of digestive organs]Onset: 38-89-3936BuyftsqfZcrtchjb codes; unclassified (2 sources)Family history of cancer of -78-8657XpfjwpmzHqofcvsjojx; intervertebral disc disorders; other back problems (6 sources)Other spondylosis with radiculopathy, lumbar region; Translations: [Inflammation of sacroiliac joint]Onset: 91-79-9195XuyeayuDqmqutrrtcx; intervertebral disc disorders; other back problems (5 sources)Radiculopathy, lumbar region; Translations: [Sciatica]Onset: 33-96-0751AjdsbbavIqdqtkzojuyv (1 source)LOW BACK PAIN, UNSPECIFIED; Translations: [LOW BACK PAIN, UNSPECIFIED] Onset: 53-17-2967Rhdgjpxnvknv (2 sources)Patient encounter mnhaur22-54-0606 Past or Other Problems Problem ClassificationProblemDateDocumented DateEpisodic/ChronicOther connective tissue disease (1 source)Pain in left leg; Translations: [PAIN IN LEFT LEG]Onset: 05-01-2022 EpisodicResidual codes; unclassified (4 sources)Procedure and treatment not carried out due to patient leaving prior to being seen by health care provider; Translations: [PROC AND TX NOT CARRIED OUT PT LEAVE]Onset: 81-59-5456Bacjryau Results Test NameValueInterpretationReference RangeFacilityAmbulatory Visit Summaryon 81-55-2307Assxcztneu Visit SummaryAmbulatory Visit Summary OBI MELGAR :1975 [...] you for choosing us for your care. [facility]/Clinic Noteon 69-47-9569Iaivcfb Surgery Office/Clinic NoteGeneral Surgery Office/Clinic Note Chief [...] Hypertension: Brother. Primary malignant neoplasm of colon: Father.[facility] Comment on above:Result Comment: Electronically Signed By: AROLDO LUND, Obi Taylor.br\Date and Time Signed: 05/11/24 16:14 EDTReminderson 19-06-0631Pssuqdysh Reminders From: Jud Holden LPN To: GSN - Clinical; Sent: 05/06/2024 08:33:28 EDT Show up: 03/27/2029 07:00:00 EDT Subject: colonoscopy recall Due Date/Time: 04/27/2029 07:00:00 EDT Reminder/Recall Patient due for surveillance colonoscopy 04/27/2029 due to family history of colon cancer.[facility] HospitalLon 01-28-2089TMnusehbp: [id number] Received: 04/28/24 Status: SALOME Rust Num: [id number] Spec Type: Surgical Subm Dr: Obi De La Paz MD FACS Tissues: A Colon Biopsy (SIGMOID POLYP) Procedures: HE/2, Gross/Micro L4 Age/ Patient Sex Location Account Attending Physician Obi Melgar 48/M LABELL [id number] Obi De La Paz MD FACS SPEC NUM: [id number] RECD: 04/28/24 STATUS: SALOME REQ NUM: [id number] MARIAMA: 04/27/[address]: Obi De La Paz MD FACS ENTERED: 04/28/[address] [facility] [address]: SPEC TYPE: Surgical DEPT: SÁNCHEZ SIMMONS ENTERED BY: [id number] RECV BY: [id number] ORDERED: CHILO Gross/Micro L4 ORDERED: MARYAlfreda Gross/Micro [...] cassette A1. CPT Codes 88 305 Specimen: [id number] Received: 04/28/24 Status: SALOME Pepper Num: [id number] Spec Type: Surgical Subm Dr: Obi De La Paz MD FACS Tissues: A Colon Biopsy (SIGMOID POLYP) Procedures: CHILO, Gross/Micro L4 Patient: Obi Melgar [id number] (Continued) Signed (signature on file) Oscar Diaz MD 05/03/[address] [place] [address] Physician GroupAmbulatory Visit Summaryon 03-30-2024 Ambulatory Visit SummaryAmbulatory Visit Summary OBI MELGAR :1975 Visit Date:03/30/2024 Ambulatory Visit Instructions Your Care Team Attending Physician - AROLDO ULND, Obi Tirado Primary Care Physician - Vania [...] you for choosing us for your care. [facility] HospitalPhysician Referralon 12-29-2023 Physician [id number]#1.00TIFFNoMadison HealthXR LSPINE W_OBLS AND FLEX_EXTon 54-30-8199SY LSPINE W_OBLS AND FLEX_EXTEXAMINATION: XR LSPINE W_OBLS [...] Electronically authenticated by: EPHRAIM THAPA Date: 2022-04-29 13:15NOhioHealth Doctors HospitalXR Finger Righton 75-50-6294GI Finger RightEXAM: CLINICAL HISTORY: __ FINDINGS: Bone mineralization is normal. No acute fracture, dislocation or significant arthritic changes are seen. No significant joint space effusion is present. Soft tissues are without abnormal calcifications or radiopaque foreign body. No active erosive changes are identified. IMPRESSION: Normal skeletal appearance. Report reported and signed by MURTAZA VILLASEÑOR on 03/30/2022 1036NormalNorthern [place] Construction Operations Manager Vital Signs Date TimeVital SignValuePerforming OyfdzcoslZakzimvw66-27-0232 09:28-0400Body envgpusgoee08.3 [degF]Lisa Garcia TOOL BUILDER Work Phone: [facility] HospitalXitraivngg73-88-4013 09:28-0400Diastolic blood mbyawlnf01 mm[Hg]Lisa Garcia TOOL BUILDER Work Phone: [facility] HospitalXccdniqmzq94-64-7004 09:28-0400Heart rate73 /min Lisa Garcia TOOL BUILDER Work Phone: [place] [address]Ezprtbajrk51-32-5784 09:28-2404XhT5% (BldA) [Mass fraction]97 %Lisa Garcia TOOL BUILDER Work Phone: [facility] HospitalChyepdgqez12-71-6416 09:28-0400Systolic blood xazmmvnm019 mm[Hg]Lisa Garcia TOOL BUILDER Work Phone: [facility] HospitalThgryynbfk93-55-1934 15:49-0400Blood Pressure LocationMichael NILL [phone]-AdopxMer[facility] Health [facility] Hospital08-21-2024 15:49-0400Diastolic blood bkjjqfys36 mm[Hg]Obi NILL [phone]-XwzfxMercy Health Lor[facility] Hospital08-21-2024 15:49-0400Heart rate68 /minMichael NILL [phone]-Taeof General Surgery Txpcbaat32-91-7599 15:49-0400Respiratory rate16 /minMichael NILL [phone]-KrsfyBarnesville Hospitalue08-21-2024 15:49-0400Systolic blood mm[Hg]Obi NILL [phone]-OlsezMercy Health Lorain Hospital Encounters Encounter DateEncounter TypeCare ProviderFacilityStart: 05-15-2025 End: 11-74-8789jdzwsfyvhyWreebme Vytautas Giedraitis MDFacility:PM Mary Start: 04-17-2025 End: 92-68-5498aanpeysmhcZfvhtvq Vytautas Giedraitis MDFacility:PM Mary Start: 04-02-2025 End: 22-57-9818mxmdmtybgoQJB WARCHOLNot AvailableStart: 04-02-2025 End: 05-01-6305Yenpfp outpatient new 45 minutesAmy Warchol TOOL BUILDER Work Phone: [facility] Urgent CareComment on above:Lumbar region somatic dysfunction (Primary Dx); SacroiliitisStart: 05-11-2024 End: 81-60-0965irehkylbbnVhjqnhe R NILLFacility: BellevueStart: 05-11-2024 End: 72-52-1613Dtbspru encounter procedureMichael R NILL [phone]-SqyklMartins Ferry Hospital Mary Start: 04-27-2024 End: 75-66-0281yzljnjbrdgBF Steff M Hoy Work Phone: [facility] Work Phone: Start: 04-27-2024 End: 70-97-2328Cbleuwnb ReferredMD Steff Hoy Work Phone: [facility]-LAB Path Spec Talent HospStart: 04-27-2024 End: 28-50-0016khdjrmntgoAetpnhj R NILLFacility:CD:[id number]: 03-30-2024 End: 87-02-8096fvibrdlovcQgkmefg R NILLFacility:[facility]art: 03-30-2024 End: 61-09-9903Riylvkq encounter procedureMichael R NILL [phone]-Frmzm General Surgery Talent Start: 02-03-2024 End: 48-70-2702jerxkzpsuaFkghzyn R NILLFacility:[facility]ueStart: 02-03-2024 End: 32-25-6887Vagxmlk encounter procedureMichael R NILL [phone]-DbnhzMartins Ferry Hospital Mary Start: 00-29-6996txeykpyvznWayaosb NILLFacility:[facility] Centertart: 36-98-5520lpotjstckjKM STEFF HOY .Facility:Y1Shfwh: 12-04-2022 ambulatoryJILL YU .Facility:M4Kxaxx: 09-04-2022 End: 62-78-1229ddhjrngefnDRQK YU .Facility:W4Ydbko: 06-05-2022 End: 08-43-5134nqmjoiojkkDFNM YU .Facility:W8Frlsv: 05-13-2022 End: 62-33-9654ivgotkpskbPN RUSTYNAREN CHILDERS .Facility:M5Baphg: 04-29-2022 End: 32-01-3313cglxhcraklKfozoh ZieberFacility:H2Hcquz: 03-29-2022 End: 71-98-7862kngveeouglYN STEFF HOY .Facility: Procedures DateProcedureProcedure DetailPerforming ClinicianStart: 89-25-9558Pikgltmhysv Obi NILL ColonoscopyMichael NILL Excision of lumbar intervertebral discMichael NILL Payers DatePayer CategoryPayerPolicy [id number] Health InsuranceMEDICAL MUTUAL [id number]-whz [id number] Ynjvcil39-77-3711SvobxjcWKK42[id number] 2..1.674616.3.57[id number] 2..1.607154.3.57[id number] 2..1.287372.3.57[id number] 2..1.166237.3.57[id number] 2..1.461354.3.57[id number] 2..1.666013.3.579.2.29889-63-5049Afeetmf3333253 2..1.248104.3.579.2.02091-58-3524Ijrwwia8489321 2..1.802045.3.579.[id number] 2.16.840.1.003568.3.57[id number] 2.16.840.1.626571.3.579.2.31839-93-6585Wgescpj55606908 2.16.840.1.781909.3.579.[id number] 2.16.840.1.987632.3.579.[id number] 2.16.840.1.782959.3.579.[id number] 2.16.840.1.141833.3.579.2.861222-84-4366Zqarvde889422901 2.0.1.364427.3.579.[id number] 2.16.840.1.739714.3.579.2.68356-88-7852Xeyfnqy Health [id number] Health InsuranceOhiohealth Mansfield [id number]-[id number] [id number] 2.840.1.178334.3.579.2.531 Social History DateTypeDetailFacilityTobacco smoking statusMercy Health Lorain Hospital [facility]igned At [facility] Start: 34-98-0774Jwaajaa smoking statusHeavy tobacco smoker (finding)[facility] HospitalTobacco smoking statusNeverBarberton Citizens Hospitaltart: 64-64-9426Rodmrfh smoking status NHISSmoker (finding) [facility] Hospitaltart: 65-47-5304Ofb Assigned At [facility] HospitalTobacco smoking status NHISTobacco smoking consumption unknownNOMS HealthcareStart: 54-52-4656Qzj assigned at birthNot on [facility] Functional Status VxekUhkgspofnlVevmpjYcynkolo84-74-6234Khwrnxcyjf StatusN/AFcathy-Pepito General Surgery Mary History of Present illness Narrative 04-02-2025 Note Date & AngmDlpnWzpnqexi14-56-2199 History of Present illness Narrative* Lisa Garcia, TOOL BUILDER - 04/02/2025 9:20 AM EDT Images from [...] patient's pain, supporting SI joint involvement. The kpnemzcf-hht-bliousf test is negative. No signs of upper [...] in with pain management. documented in [facility] encounterColumb[facility] Clinical Note 03-30-2024 Note Date & OasiEdzwBqicduqp35-37-4916 NoteGeneral Surgery Office/Clinic Note Chief Complaint consultation [...] years ago; no asa or NSAID use; ifbh5xl daily; fmhx of colon cancer in patient's [...] Hypertension: Brother. 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 He has patchy hypoesthesia [...] otherwise indicated. Patient agrees with this plan.[facility] Consultation note 06-05-2022 Note Date & ZjpnGnsdThqezlpk38-61-4714 NoteCONSULTATION CONSULTATION DATE: 06/05/2022 HISTORY OF PRESENT [...] in three months' time unless otherwise indicated.[facility] Consultation note 04-29-2022 Note Date & WeoyWaujHmgqqvop66-78-5949 NoteCONSULTATION CONSULTATION DATE: 04/29/2022 CHIEF COMPLAINT: Low [...] like to proceed. CC: Steff Caro M.D.[facility] Evaluation + Plan note Note Date & TypeNoteFacilityEvaluation + Plan note No data available for this section [facility] Evaluation note Note Date & TypeNoteFacilityEvaluation noteNo assessment information available [facility] Work Phone: Evaluation note Note Date & TypeNoteFacilityEvaluation note* Diagnosis Lumbar region somatic dysfunction- Primary Nonallopathic lesion of lumbar region, not elsewhere classified Sacroiliitis Sacroiliitis, not elsewhere classified documented in this encounter [facility] Discharge instructions Note Date & TypeNoteFacilityHospital Discharge instructions No data available for this section [facility] Progress note Note Date & TypeNoteFacilityProgress note No data available for this section [facility] Summary Purpose Family History No Family [...] section and content) DATE CREATED AUTHOR 04/03/2022 [facility] Construction Operations Manager DATE CREATED AUTHOR AUTHOR'S ORGANIZ ATION 12/08/2022 [facility] DATE CREATED AUTHOR AUTHOR'S ORGANIZ ATION 05/06/2024 [facility] DATE CREATED AUTHOR AUTHOR'S ORGANIZ ATION 05/13/2024 [facility] DATE CREATED AUTHOR AUTHOR'S ORGANIZ ATION 04/03/2025 [facility] DATE CREATED AUTHOR AUTHOR'S ORGANIZ ATION 05/20/2025 [facility] Patient Care team informatio n (unrecognized section [...] BE BASED ON THE PRIMARY CLINICAL RECORDS. [facility] Sequence [facility]. provides no warranty or guarantee of the accuracy or completeness of information in this document.
[2025-07-17 09:26] VITALS: BP 144/76; PULSE 68; TEMP 37.7; O2SAT 98
[2025-07-17 10:07] VITALS: BP 115/67; BP 117/58; PULSE 67; O2SAT 100
[2025-07-17 10:08] VITALS: PULSE 68; O2SAT 98
[2025-07-17] MEDS: LIDOCAINE HCL 2% 400 MG/20 ML MDV INJ (10:08)
[2025-07-17] MEDS: BUPIVACAINE HCL 0.25% PF 25 MG/10 ML VIAL 4 ML INJ (10:08)
--- NOTE | 2025-07-17 10:09 | W.PM.PROCNOT ---
Date of procedure: 07/17/25 Pre-op diagnosis: Pain due to lumbar spondylosis without myelopathy Post-op diagnosis: same as pre-op Procedure: Procedure: Right L4-5, L5-S1 medial branch block Medications: Bupivacaine 0.25% 3cc The patient was seen and examined in the preoperative holding area.? An informed consent was obtained and placed on the chart.? The patient was brought to the medical procedure unit and placed in the prone position.? A timeout was completed verifying correct patient, procedure site, positioning, plan, and special equipment.? Using aseptic technique, the needle was placed at right L4. Under direct fluoroscopic visualization a Quincke-tipped spinal needle was advanced to the junction of the superior articulating process with the transverse process at the designated medial branch segment.? Preceded by negative aspiration, the above-mentioned injectate was placed in 1 mL aliquots.? The procedure was completed at right L5, S1.? The needle was removed and insertion site was covered.? The patient was taken to the postprocedural recovery area and monitored for an appropriate length of time before found suitable for discharge in the company of a responsible adult. Anesthesia: Local Surgeon: Almaz Brooke Pathology: none sent Condition: stable Disposition: no change
== END 2025-07-17 10:14 | disposition home or self-care (01) ==
PROVIDERS: PCP Family Medicine; Visit Provider Anesthesiology
DX: M47.816 Spondylosis without myelopathy or radiculopathy, lumbar region (principal); G89.29 Other chronic pain
CPT/HCPCS: 64493; 64494; J0665

== ENCOUNTER 2025-07-19 08:21 | Outpatient (OUT) | payer OTHER, SELFPAY ==
--- OUTSIDE RECORDS SUMMARY | 2025-07-19 08:26 | XMS_ITS | CCD ---
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 Name Role Phone AIMEE .VANESSA Consulting Unavailable [...] Care Unavailable Steff Caro Primary Care Physician [phone] Ondina Nelson Unavailable Unavailable MD Steff Caro Primary Care Provider [phone] MD Obi De La Paz Attending Provider [...] Unavailuche Brooke MD, Almaz Palacio Attending Unavailable Edawrdo LUND, Almaz Palacio Attending Unavailable Medications Current Medications MedicationDrug Class(es)DatesSig (Normalized)Sig (Original)acetaminophen 325 mg / HYDROcodone bitartrate 5 mg oral tablet (1 source)Opioid AgonistStart: 73-94-7640ndke 1 tablet by mouth every six hours Hydrocodone-Acetaminophen (Bogue) 5-325 mg tablet Active 1 TAB PO Q6H 10 3 March 29, 2019baclofen 10 mg oral tablet (2 sources)gamma-Aminobutyric Acid-ergic AgonistStart: 04-02-2025 End: 91-31-3286lhxa 1 tablet by mouth in the morningbaclofen (Lioresal) 10 MG tablet Indications: Sacroiliitis Take 1 tablet (10 mg) by mouth in the morning and 1 tablet (10 mg) before bedtime. Do all this for 5 days. 10 tablet 04/02/2025 04/07/2025 Activecyclobenzaprine hydrochloride 10 mg oral tablet (1 source)Muscle RelaxantStart: 77-13-7267udyf 10 mg by mouth three times daily Cyclobenzaprine Active 10 MG PO Three times daily March 29, 2019 12:00am methylPREDNISolone (2 sources)CorticosteroidStart: 04-02-2025 End: 50-14-1216ydrjdnTFOUFJXyxqcq (Medrol Dospak) 4 MG tablets Indications: Lumbar region somatic dysfunction Takeas directed on package. 21 tablet 04/02/2025 04/09/2025 Activenaproxen 500 mg oral tablet (1 source)Nonsteroidal Anti-inflammatory DrugStart: 56-03-6258sdzz 1 tablet by mouth twice dailyNaproxen (Naprosyn) 500 mg tablet Active 500 MG PO Twice daily March 29, 2019 12:00ampredniSONE 20 mg oral tablet (1 source)Start: 70-54-7299hkik 60 mg by mouth once dailyPrednisone Active 60 MG PO Daily March 29, 2019 12:00am Problems Active Problems Problem ClassificationProblemDateDocumented DateEpisodic/ChronicAllergic reactions (3 sources)Qacmdw18-36-0982ZmidqcweCctgj bone disease and musculoskeletal deformities (2 sources)Somatic dysfunction of lumbar region; Translations: [Segmental and somatic dysfunction of lumbar region]20-87-3043PkjivyfpXzhfu screening for suspected conditions (not mental disorders or infectious disease) (1 source)Screening for malignant neoplasm of colon done; Translations: [Encounter for screening for malignant neoplasm of colon]Onset: 03-30-2024 EpisodicResidual codes; unclassified (2 sources)Family history of malignant neoplasm of digestive organ; Translations: [Family history of malignantneoplasm of digestive organs]Onset: 59-35-9874LkxqgvmqXuoccqhl codes; unclassified (2 sources)Family history of cancer of uvjsq51-03-1186VzeevzzqOkgnvbhshfx; intervertebral disc disorders; other back problems (6 sources)Other spondylosis with radiculopathy, lumbar region; Translations: [Inflammation of sacroiliac joint]Onset: 71-43-1984TqzoryzYbfdeeuarsd; intervertebral disc disorders; other back problems (5 sources)Radiculopathy, lumbar region; Translations: [Sciatica]Onset: 08-20-5012YqckqtneIjnjmuzyvpnc (1 source)LOW BACK PAIN, UNSPECIFIED; Translations: [LOW BACK PAIN, UNSPECIFIED] Onset: 30-26-0860Uzjpwkpjqmpd (2 sources)Patient encounter qykarf37-38-2220 Past or Other Problems Problem ClassificationProblemDateDocumented DateEpisodic/ChronicOther connective tissue disease (1 source)Pain in left leg; Translations: [PAIN IN LEFT LEG]Onset: 05-01-2022 EpisodicResidual codes; unclassified (4 sources)Procedure and treatment not carried out due to patient leaving prior to being seen by health care provider; Translations: [PROC AND TX NOT CARRIED OUT PT LEAVE]Onset: 64-17-5688Ogydxfyq Results Test NameValueInterpretationReference RangeFacilityAmbulatory Visit Summaryon 49-07-8548Umygcbbnii Visit SummaryAmbulatory Visit Summary OBI MELGAR :1975 [...] you for choosing us for your care. [facility]/Clinic Noteon 50-02-1202Xxcxbzz Surgery Office/Clinic NoteGeneral Surgery Office/Clinic Note Chief [...] Hypertension: Brother. Primary malignant neoplasm of colon: Father.[facility] Comment on above:Result Comment: Electronically Signed By: AROLDO LUND, Obi Taylor.br\Date and Time Signed: 05/11/24 16:14 EDTReminderson 59-05-6894Smsttmntl Reminders From: Jud Holden LPN To: GSN - Clinical; Sent: 05/06/2024 08:33:28 EDT Show up: 03/27/2029 07:00:00 EDT Subject: colonoscopy recall Due Date/Time: 04/27/2029 07:00:00 EDT Reminder/Recall Patient due for surveillance colonoscopy 04/27/2029 due to family history of colon cancer.[facility] CenterLon 73-04-6276BFqsoquri: [id number] Received: 04/28/24 Status: SALOME Rust Num: [id number] Spec Type: Surgical Subm Dr: Obi De La Paz MD FACS Tissues: A Colon Biopsy (SIGMOID POLYP) Procedures: HE/2, Gross/Micro L4 Age/ Patient Sex Location Account Attending Physician Obi Melgar 48/M LABELL [id number] Obi De La Paz MD FACS SPEC NUM: [id number] RECD: 04/28/24 STATUS: SALOME REQ NUM: [id number] MARIAMA: 04/27/[address]: Obi De La Paz MD FACS ENTERED: 04/28/[address] [facility] DR: SPEC TYPE: Surgical DEPT: SÁNCHEZ SIMMONS ENTERED BY: [id number] RECV BY: [id number] ORDERED: CHILO Gross/Micro L4 ORDERED: MARYAlfreda Gross/Micro [...] cassette A1. CPT Codes 88 305 Specimen: [id number] Received: 04/28/24 Status: SALOME Pepper Num: [id number] Spec Type: Surgical Subm Dr: Obi De La Paz MD FACS Tissues: A Colon Biopsy (SIGMOID POLYP) Procedures: CHILO, Gross/Micro L4 Patient: Obi Melgar [id number] (Continued) Signed (signature on file) Oscar Diaz MD 05/03/[address] [place] [address] Physician GroupAmbulatory Visit Summaryon 03-30-2024 Ambulatory Visit [...] you for choosing us for your care. [facility] CenterPhysician Referralon 12-29-2023 Physician [id number]#1.00TIFFNoGalion HospitalXR LSPINE W_OBLS AND FLEX_EXTon 47-08-3073HZ LSPINE W_OBLS AND FLEX_EXTEXAMINATION: XR LSPINE W_OBLS [...] Electronically authenticated by: EPHRAIM THAPA Date: 2022-04-29 13:15[facility]XR Finger Righton 07-55-2459XK Finger RightEXAM: CLINICAL HISTORY: __ FINDINGS: Bone mineralization is normal. No acute fracture, dislocation or significant arthritic changes are seen. No significant joint space effusion is present. Soft tissues are without abnormal calcifications or radiopaque foreign body. No active erosive changes are identified. IMPRESSION: Normal skeletal appearance. Report reported and signed by MURTAZA VILLASEÑOR on 03/30/2022 1036NormalNorthern Nebraska Medical Scientist Vital Signs Date TimeVital SignValuePerforming DdosgqrixKbcdkahi07-91-6675 09:28-0400Body bkwhfdubqry71.3 [degF]Lisa Garcia MELON PACKER Work Phone: [facility] CenterZygndpklqn49-05-9414 09:28-0400Diastolic blood tjlbxohe00 mm[Hg]Lisa Garcia MELON PACKER Work Phone: [facility] CenterVpwwncgdjf83-25-4706 09:28-0400Heart rate73 /min Lisa Garcia MELON PACKER Work Phone: [place] [address]Ukspqfarzr53-60-6210 09:28-7978MiQ1% (BldA) [Mass fraction]97 %Lisa Garcia MELON PACKER Work Phone: [facility] CenterChijbwhrnq70-90-6898 09:28-0400Systolic blood hoacakdl164 mm[Hg]Lisa Garcia MELON PACKER Work Phone: [facility] CenterJuyngvqvtm41-06-1410 15:49-0400Blood Pressure LocationMichael NILL [phone]-DplmhSelect [facility]08-21-2024 15:49-0400Diastolic blood rcvtqjig05 mm[Hg]Obi NILL 359-5844Bxlmca-DkvkvSelect Medical [facility] Hospital08-21-2024 15:49-0400Heart rate68 /minMichael NILL 706-6491Ypccvm-Rwgfa General Surgery Lijvujrq55-71-5009 15:49-0400Respiratory rate16 /minMichael NILL [phone]-JbbvfMount Carmel Health Systemue08-21-2024 15:49-0400Systolic blood cnfmypzs198 mm[Hg]Obi NILL [phone]-PdmioSelect Medical [facility]health Rehabilitation Hospital Encounters Encounter DateEncounter TypeCare ProviderFacilityStart: 05-15-2025 End: 01-77-9094xavpfydvilSnnhwus Vytautas Giedraitis MDFacility:[facility] [place] Start: 04-17-2025 End: 58-71-3291tqeezadszgPzbzofc Vytautas Giedraitis MDFacility:[facility] [place] Start: 04-02-2025 End: 59-42-6402inqidxzbonWAU WARCHOLNot AvailableStart: 04-02-2025 End: 38-83-5292Kzsonp outpatient new 45 minutesAmy Warchol MELON PACKER Work Phone: [facility] Urgent CareComment on above:Lumbar region somatic dysfunction (Primary Dx); SacroiliitisStart: 05-11-2024 End: 16-40-4507chjdvjjvfbGmwugpo R NILLFacility: BellevueStart: 05-11-2024 End: 88-82-6160Dzpwxvz encounter procedureMichael R NILL [phone]-TysttLicking Memorial Hospital [place] Start: 04-27-2024 End: 40-82-0130xeuhynmvrzQV Steff M Hoy Work Phone: [facility] Work Phone: Start: 04-27-2024 End: 12-67-0822Ebxigxdh ReferredMD Steff Hoy Work Phone: [facility]-LAB Path Spec Mary HospStart: 04-27-2024 End: 98-36-6230fvgodgtmfmZrekqpf R NILLFacility:CD:[id number]: 03-30-2024 End: 38-75-3646xhcgkumfsfNrernoj R NILLFacility:[facility]ertart: 03-30-2024 End: 86-58-4503Jgzueby encounter procedureMichael R NILL [phone]-Moxzl General Surgery Mary Start: 02-03-2024 End: 17-74-3606lishxwqkgtEnzgxre R NILLFacility:[facility] CenterueStart: 02-03-2024 End: 40-72-9335Uxsavuj encounter procedureMichael R NILL [phone]-YnmaxLicking Memorial Hospital [place] Start: 40-70-2589lmzncqhulrAgbnvqw NILLFacility:[facility] Centertart: 43-00-9887lstjydoxbqUB STEFF HOY .Facility:V7Orceh: 12-04-2022 ambulatoryJILL YU .Facility:C3Bngte: 09-04-2022 End: 51-07-5989ybsovvgtvdIHMI YU .Facility:V1Zenpt: 06-05-2022 End: 12-14-6126wppxtsndgvGXZP YU .Facility:E2Skkna: 05-13-2022 End: 00-95-7792ilmqvuckqtFU RUSTYNAREN CHILDERS .Facility:D1Mejwz: 04-29-2022 End: 85-86-2387nrxkgqtdblJxbhem ZieberFacility:C5Xswoj: 03-29-2022 End: 76-17-1298qrkbyyxzjiMH STEFF HOY .Facility: Procedures DateProcedureProcedure DetailPerforming ClinicianStart: 52-07-9058Kmebqqwdvhz Obi NILL ColonoscopyMichael NILL Excision of lumbar intervertebral discMichael NILL Payers DatePayer CategoryPayerPolicy [id number] Health InsuranceMEDICAL MUTUAL [id number]-nyn [id number] Gfuyizf38-04-7914AcmuwabCBU94[id number] 2..1.303481.3.57[id number] 2..1.805164.3.579.2.31997-66-0754Ibnizml0627684 2..1.776501.3.579.2.97412-73-6534Afiozwk8241991 2..1.046091.3.579.2.06840-51-8859Grmitni3444643 2..1.863328.3.579.2.86797-41-2877Bqlljdz2839773 2..1.803882.3.579.2.75326-97-4369Ndrogle3291250 2..1.212660.3.579.2.43215-33-4054Xwekbtl1005117 2..1.449261.3.579.[id number] 2.16.840.1.376529.3.579.2.22[id number] 2.16.840.1.136381.3.579.2.80754-21-5435Jdeagda58872630 2.16.840.1.205776.3.579.2.16511-38-3321Trmjrly66093643 2.16.840.1.566716.3.579.[id number] 2.16.840.1.753395.3.579.2.[id number] 2.16.840.1.745634.3.579.2.5[id number] 2.0.1.881341.3.579.[id number] 2.16.840.1.563582.3.579.2.34022-21-7170Qajjpfq Health [id number] Health InsuranceKettering Health Washington [id number] 24m26upq-1k82-34n5-5n45-83849dv323ze [id number] 2.840.1.463460.3.579.2.531 Social History DateTypeDetailFacilityTobacco smoking statusSelect Medical [facility]health Rehabilitation Hospital [facility] At [facility] Start: 60-82-1762Odmlquh smoking statusHeavy tobacco smoker (finding)[facility] HospitalTobacco smoking statusNeverSelect Medical Specialty Hospital - Youngstowntart: 53-21-4087Fxkvxbx smoking status NHISSmoker (finding) [facility] Hospitaltart: 31-14-5113Vgj Assigned At [facility] HospitalTobacco smoking status NHISTobacco smoking consumption unknownNOMS HealthcareStart: 98-14-9985Iqb assigned at birthNot on [facility] Functional Status LsccGsplxfeifsGldvsiXdhklnwi97-07-5630Ewqfsxjdnb StatusN/AFcathy-Pepito General Surgery Mary History of Present illness Narrative 04-02-2025 Note Date & HiuyPrcmCdlmseex84-98-6873 History of Present illness Narrative* Lisa Garcia, MELON PACKER - 04/02/2025 9:20 AM EDT Images from [...] scheduled for an appointment with his painter maintenance, which may be performing a steroid shot or ablation in the future. His last visit with the painter maintenance was a year ago, and he has [...] patient's pain, supporting SI joint involvement. The pooqfudl-szm-hnzuqhy test is negative. No signs of upper [...] in with pain management. [facility]-30-2024 Note Date & ReteUyimZkvchppp01-40-6436 NoteGeneral Surgery Office/Clinic Note Chief Complaint consultation [...] years ago; no asa or NSAID use; sljd4ok daily; fmhx of colon cancer in patient's [...] Hypertension: Brother. 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 He has patchy hypoesthesia [...] otherwise indicated. Patient agrees with this plan.[facility] Consultation note 06-05-2022 Note Date & QoouDirmVxfnxsbe83-74-4402 NoteCONSULTATION CONSULTATION DATE: 06/05/2022 HISTORY OF PRESENT [...] in three months' time unless otherwise indicated.[facility] Consultation note 04-29-2022 Note Date & ZxlzYsrsVtwhlhdw61-86-8410 NoteCONSULTATION CONSULTATION DATE: 04/29/2022 CHIEF COMPLAINT: Low [...] like to proceed. CC: Steff Caro M.D.[facility] Evaluation + Plan note Note Date & TypeNoteFacilityEvaluation + Plan note No data available for this section [facility] Evaluation note Note Date & TypeNoteFacilityEvaluation noteNo assessment information available [facility] Work Phone: Evaluation note Note Date & TypeNoteFacilityEvaluation note* Diagnosis Lumbar region somatic dysfunction- Primary Nonallopathic lesion of lumbar region, not elsewhere classified Sacroiliitis Sacroiliitis, not elsewhere classified documented in this encounter [facility] Discharge instructions Note Date & TypeNoteFacilityHospital Discharge instructions No data available for this section [facility] Progress note Note Date & TypeNoteFacilityProgress note No data available for this section [facility] Summary Purpose Family History No Family [...] section and content) DATE CREATED AUTHOR 04/03/2022 [facility] Medical Scientist DATE CREATED AUTHOR AUTHOR'S ORGANIZ ATION 12/08/2022 [facility] DATE CREATED AUTHOR AUTHOR'S ORGANIZ ATION 05/06/2024 [facility] DATE CREATED AUTHOR AUTHOR'S ORGANIZ ATION 05/13/2024 [facility] DATE CREATED AUTHOR AUTHOR'S ORGANIZ ATION 04/03/2025 [facility] Medical [facility] DATE CREATED AUTHOR AUTHOR'S ORGANIZ ATION 05/20/2025 [facility] Patient Care team informatio n (unrecognized section [...] BE BASED ON THE PRIMARY CLINICAL RECORDS. [facility]. provides no warranty or guarantee of the accuracy or completeness of information in this document.
--- NOTE | 2025-07-19 08:32 | PM.CN ---
Consult Note: HPI Data of Consult Patient: known to practice within the last 3 years Consult date: 07/19/25 Requesting Physician: Yesi Caballero NP Primary Care Provider: Av Caro MD Consult Narrative Reason for consult: low back pain Narrative: Fabian Melgar a pleasant 49 year old male presents for evaluation of chronic low back pain > 20 years unresponsive to greater than 6 weeks of provider guided HEP, heat, ice, tylenol, nsaids, and oral steroids. Utilizing baclofen 5-10mg TID PRN pain/spasms, with benefit without side effects. also utilizing otc ibuprofen prn. pain today 3/10 increasing to 8/10 in the AM and with overactivity. denies fall/injury. recently underwent right L4-5 L5-S1 MBB #1 and #2 with >80% improvement in pain while anesthetized, preop pain up to 8/10 post op pain 0/10 for at least 2 hours. pt tolerated procedure well without complaints/significant discomfort. cc:: CC: Yesi Caballero NP Review of Systems ROS Musculoskeletal Reports: back pain PFSH PFSH Medical History Eczema ?L30.9 - Dermatitis, unspecified (ICD-10) Back pain ?M54.9 - Dorsalgia, unspecified (ICD-10) Surgical History H/O colonoscopy ?Z98.890 - Other specified postprocedural states (ICD-10) H/O lumbar discectomy ?Z98.890 - Other specified postprocedural states (ICD-10) Family History Other Colon cancer Family history of hypertension Social History Within the past year, how often did you have a drink containing alcohol: 2-4 times a month Smoking status: Current every day smoker Non-prescribed substance use: denies use 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 Highest level of school completed/degree received: high school graduate Meds Home Medications and Allergies Home Medications ?Medication ?Instructions ?Recorded ?Confirmed ?Type baclofen 10 mg tablet mg 04/17/25 History ibuprofen 200 mg tablet (IBU-200) 200 mg PO Q8H 07/03/25 07/17/25 History Allergies Allergy/AdvReac Type Severity Reaction Status Date / Time No Known Drug Allergies Allergy Verified 07/17/25 09:28 Exam Constitutional Documenting provider has reviewed patient's vital signs: yes Common normals: no apparent distress, oriented x3 and alert General appearance: cooperative HENMT Common normals: normocephalic, hearing grossly normal bilaterally and moist oral mucous membranes Head and scalp: normocephalic Eye Common normals: PERRL Pupil: PERRL Neck & C-Spine Common normals: full ROM General: normal visual inspection Chest Common normals: inspection of chest normal Respiratory Common normals: normal respiratory effort, no retractions and no use of accessory muscles Back & Pelvis Lumbar spine/lower back: pain with ROM, lumbar spinal tenderness (right l4-5 l5-s1 facet loading ) Lumbar spinal tenderness location: L4 and L5 and straight leg raise negative bilaterally Sacroiliac joints: SI joints normal Other: strength 5/5 in BLE sensation intact BLE Neuro Common normals: oriented x3 Sensorium/orientation: alert Psych Common normals: mental status grossly normal, thought process normal, cooperative, affect normal, speech normal and activity/motor behavior normal Speech: normal speech Thought process: normal thought process Results Additional Findings Additional findings: If on a controlled substance or opioids, I have checked an [place]AR[place] report on this patient and there are no aberrancies noted in the prescribing history.??If on a controlled substance or opioid a drug screen was completed and reviewed within the last year, and if there has not been a drug screen completed we ordered one today to monitor higher risk, state monitored pain medication use. As part of providing excellent, safe, comprehensive care, the following was completed at our patient's visit: 1. A medication reconciliation and review to ensure accurate knowledge of current/active medications, including asking our patients to inform us about any safu-tua-piirett medications or herbal remedies/nutritional supplements/alternative remedies. 2. A review to specifically ensure our patients have had annual screening for screening for depression, screening for tobacco use, and screening for unhealthy alcohol use. For concerning screenings had a discussion with the patient, provided patient education, and recommended follow-up with primary care provider when appropriate. If patient noted with a risk of falling, they received education on strength, gait, and balance training to prevent future risk of falling. Portions of this note may have been carried over from the previous visit and updated as appropriate. Please note this office utilizes paper charting in addition to the electronic medical record. A list of current medications, vitals, and PMH is available there as the clinical staff outside of myself do not have access to [employer] charting during the clinic day operations. As part of providing quality comprehensive care the current medications, vitals, and PMH were reviewed in the paper chart. Assessment and Plan Assessment and Plan (1) Lumbar spondylosis: (2) Myalgia, other site: Plan The patient has had over 3 months of moderate to severe low back pain with functional impairment and inadequate response to conservative care including NSAIDS (unless there are contraindication such as concurrent blood thinners), multiple oral or topical pain medications, and home exercise program/physical therapy.? Patient has completed >6 weeks of guided home exercise program and/or formal physical therapy program without relief of their symptoms.? The Oswestry Disability Index was completed, and the patient scored a 24%.? right L4-5 L5-S1 facet RFA facet mediated pain under fluoroscopy continue HEP as tolerated declining NS consultation at this time f/u 1 month after RFA complete
== END 2025-07-19 08:22 | disposition home or self-care (01) ==
LOC: PM 08:22
PROVIDERS: PCP Family Medicine; Visit Provider Nurse Practitioner
DX: M47.816 Spondylosis without myelopathy or radiculopathy, lumbar region (principal); M79.18 Myalgia, other site
CPT/HCPCS: G0463

== ENCOUNTER 2025-07-31 07:40 | Day surgery (SDC) | payer OTHER, SELFPAY ==
[2025-07-31 07:43] VITALS: BP 123/73; PULSE 72; TEMP 37.1; O2SAT 100
--- OUTSIDE RECORDS SUMMARY | 2025-07-31 07:43 | XMS_ITS | Clinical Summary ---
Author Organization [facility] Address [address] [place] [address] Care Team Providers Care Vault Maker Name Role Phone Unavailable Primary Care Provider [...] Last Filed Vital Signs Vital SignReadingTime TakenCommentsBlood Xkhnlsco188/7608 9:28 AM EDT Xalbe956304/02/2025 9:28 AM KXFNcrtkooqfqt92.3 ??C (97.3 ??F)04/02/2025 9:28 AM EDTRespiratory Rate--Oxygen Yfxfxdavpx08%04/02/2025 9:28 AM EDTInhaled Oxygen Concentration--Ctrvkl79.9 kg (163 lb)03/30/2022 12:00 PM UZACahnsz425.1 cm (5' 10.5 )03/30/2022 12:00 PM EDTBody Mass Index23.0603/30/2022 12:00 PM EDT Plan of Treatment Not on file Insurance
--- OUTSIDE RECORDS SUMMARY | 2025-07-31 07:43 | XMS_ITS | Patient Health Record ---
Author Organization [facility] in [place] Address [address] [place] [address] Care Team Providers Care Supervisor Stone Name Role Phone Mauro Caro Primary Care Provider [phone] Allergies No Known Allergies Results Component Value Reference Range Notes XR FOREIGN BODY EYE Reviewed date:04/15/2025 04:05:12 PM Interpretation: Performing Lab: Notes/Report: Source Facility: [place] [address] XRay Report Signed Patient: FABIAN MELGAR MR#: [id number] : 1975 Acct:[id number] Age/Sex: 49 / M ADM Date: 04/14/25 Loc: [facility] Attending Dr: Herbert Davis NP Ordering Physician: Herbert Davis NP Date of Service: 04/14/25 Procedure(s): XR foreign body eye ANDREW Accession Number(s): [id number] cc: Herbert Davis NP; Av Caro M.D. [place] [id number] Patient Name: FABIAN MELGAR MRN: [id number] date: 1975 Sex: M Assigned Patient Location: RAD Current Patient Location: RAD Accession/Order Number: [id number] Exam Date: 04/14/2025 13:28 Report Date: 04/14/2025 13:47 At the request of: HERBERT DAVIS NP Procedure: XR foreign body eye ANDREW ORBITS FOR FOREIGN BODY - 2 views CLINICAL DATA: Pre-MRI clearance COMPARISON: None Jordan and lateral views were obtained. No radiopaque orbital foreign bodies are identified. The paranasal sinuses, as visualized are clear. There are no acute osseous abnormalities or pathologic intracranial calcifications in the mvkjo-kx-ndyu. XR/XR foreign body eye ANDREW IMPRESSION: NO ORBITAL RADIOPAQUE FOREIGN BODY. Impression dictated by: Francisca Burroughs M.D. 04/14/2025 1:47 PM Dictation Location: [place] [address] Electronically authenticated by: [id number] Y Date: 04/14/2025 13:47 Dictated By: Francisca Burroughs M.D. Signed By: 04/14/25 1349 DD/ 1347 TD/TT: Manager Branch: MR lumbar spine wo con Reviewed date:04/15/2025 04:05:12 PM Interpretation: Performing Lab: Notes/Report: Source Facility: [place] [address] Magnetic Resonance Report Signed Patient: FABIAN MELGAR MR#: [id number] : 1975 Acct:[id number] Age/Sex: 49 / M ADM Date: 04/14/25 Loc: [facility] Attending Dr: Herbert Davis NP Ordering Physician: Herbert Davis NP Date of Service: 04/14/25 Procedure(s): MR lumbar spine wo con Accession Number(s): [id number] cc: Herbert Davis NP; Av Caro M.D. [place] [address] Patient Name: FABIAN MELGAR MRN: [id number] date: 1975 Sex: M Assigned Patient Location: RAD Current Patient Location: RAD Accession/Order Number: [id number] Exam Date: 04/14/2025 13:50 Report Date: 04/14/2025 14:32 At the request of: HERBERT DAVIS NP Procedure: MR lumbar spine wo con MR lumbar spine wo con 04/14/2025 2:30 PM SIGNS AND SYMPTOMS: Low back pain with neurogenic claudication. Pain radiating into right leg PROTOCOL: Multiplanar multisequence MR images of the lumbar spine without IV contrast COMPARISON: None. FINDINGS: The bones of the lumbar spine are in anatomic alignment. There is preservation of vertebral body heights. There is disc desiccation and mild disc height loss at L4-5 and L5-S1. The marrow signal is within normal limits. The conus terminates at the inferior endplate of the L1 vertebral body level. No epidural or paraspinous fluid collection is appreciated. At T12-L1: There is a normal disc, central canal, and neural foramen. At L1-L2: There is a normal disc, central canal, and neural foramen. At L2-L3: There is a normal disc, central canal, and neural foramen. At L3-L4: There is a normal disc, central canal, and neural foramen. At L4-L5: There is a circumferential disc bulge with facet hypertrophy and ligamentum flavum thickening. There is moderate spinal canal narrowing with mild to moderate bilateral neural foraminal narrowing. At L5-S1: There is a circumferential disc bulge with a focal right subarticular and central disc extrusion with caudal migration. There is mass effect on the traversing right S1 nerve roots with moderate spinal canal narrowing. There is severe bilateral neural foraminal narrowing with mass effect on the exiting L5 nerve roots, right greater than left. MR/MR lumbar spine wo con IMPRESSION: At L5-S1: There is a circumferential disc bulge with a focal right subarticular and central disc extrusion with caudal migration. There is mass effect on the traversing right S1 nerve roots with moderate spinal canal narrowing. There is severe bilateral neural foraminal narrowing with mass effect on the exiting L5 nerve roots, right greater than left. Impression dictated by: Nils Dumas M.D. 04/14/2025 2:32 PM Dictation Location: [place] [address] Electronically authenticated by: [id number] Y Date: 04/14/2025 14:32 Dictated By: Nils Dumas M.D. Signed By: 04/14/25 1434 DD/ 1432 TD/TT: Manager Branch: Reason For Referral No Information Medications Medication SIG (Take, Route, Frequency, Duration) Notes Start Date End Date Status Ibuprofen 7656ZxzsndVcjgmnit95/01/2025ActivepredniSONE 20 MG3 tabs Orally Once a day; Duration: 5 days1807NfxwsoBhpccppzed17/01/2025Active Social History Tobacco Use: Social History Observation Description Date Details (start date - stop date) Current Smoker 08/10/1992 - NA Tobacco Control (Standard) Question Answer Notes Tobacco use: Current smoker When did you start smoking?08/10/1992How many cigarettes a day do you smoke? 11-20Additional Findings: Tobacco userModerate cigarette smoker (10-19 cigs/day) AUDIT-C (Standard) Question Answer Notes Did you have a drink containing alcohol in the p ast year? Yes How often did you have six or more drinks on one occasion in the past year?2 to 4 times a month (2 points)How many drinks did you have on a typical day when you were drinking in the past year?7 to 9 drinks (3 points)How often did you have a drink containing alcohol in the past year?2 to 4 times a month (2 points)Points7 InterpretationPositive Problems Problem Type SNOMED Code ICD Code Onset Dates Problem Status W/U Status Risk Notes Problem Well adult (722342501) Well adult (Z00.00 ) ActiveconfirmedProblemLumbar spondylosis (228833806)Lumbar spondylosis (M47.816) ActiveconfirmedProblemBenign neoplasm of colon (94654842)Sigmoid polyp (D12.5) ActiveconfirmedProblemBenign neoplasm of colon (41167527)Hyperplastic colonic polyp (K63.5)ActiveconfirmedProblemOsgood-Schlatter's disease, unspecified laterality (M92.529)Activeconfirmed Encounters Encounter Location Date Provider Diagnosis [facility] [address] [place] [address] 04/15/2025 Mauro Caro [facility] [place] [address] 07/10/2025Mauro Caro Plan Of Treatment Pending Test Test Name Order Date CMP (COMPLETE METABOLIC PANEL) 4 HEMOGLOBIN A1C (GLYCO) 12/25/2023 LIPID PANEL (CHOL/TRIG/HDL/LDL) 12/25/19 24 CBC WITH DIFF (EXP 06/2025) 12/25/2023 PSA, PROSTATE-SPECIFIC ANTIGEN 4 Insurance Providers Payer Name Payer Address Payer Phone Subscriber Number Group Number Insured Name Patient Relationship to Insured Coverage Start Date Coverage End Date MMO [employer] P[employer] [address] [address] [place] [address] [id number] Fabian Melgar Self - patient is the insured Medical (General) History Medical History History ICD Code Eczema L30.9 [place]-Schlatter's disease, unspecified laterality M92.529 Tympanic membrane perforation H72.90 Surgical History Surgery Date(Month/Year) Epidural Steroid Inj- Dr. Arredondo 04/17/25 Colonoscopy- Dr. De La Paz 04/26/2024 Lumbar Epidural 05/13/2022 Lumbar Discectomy L5-S1- Dr. Krueger
[2025-07-31 08:35] VITALS: BP 109/59; PULSE 65; O2SAT 97
[2025-07-31] MEDS: LIDOCAINE HCL 2% 400 MG/20 ML MDV 6 ML INJ (08:39)
[2025-07-31] MEDS: METHYLPREDNISOLONE ACETATE 40 MG/ML VIAL INJ (08:42)
[2025-07-31] MEDS: BUPIVACAINE HCL 0.25% PF 25 MG/10 ML VIAL 2 ML INJ (08:42)
[2025-07-31 08:43] VITALS: BP 111/65; PULSE 63; O2SAT 100
--- NOTE | 2025-07-31 08:47 | P.ON_ITS ---
Date of procedure: 07/31/25 Pre-op diagnosis: Pain due to lumbar spondylosis without myelopathy Post-op diagnosis: same as pre-op Procedure: Procedure: Right L4-5, L5-S1 radiofrequency ablation Medications: Bupivacaine 0.25% 2cc, depomedrol 40mg, lidocaine 2% 3cc The patient was seen and examined in the preoperative holding area.? The site was marked.? Written informed consent was obtained and placed on the chart.? The patient was brought to the medical procedure unit and placed in the prone position.? A timeout was completed verifying correct patient, procedure, positioning, and special requirements.? The skin overlying the target points, the designated medial branch, was prepped and draped in the usual sterile fashion.? The target point was achieved with a 20-gauge 15 cm with a 10 mm curved active tip radiofrequency cannula under direct fluoroscopic visualization.? The needle was inserted at level L4 on the right side. Needle tip position was confirmed with lateral fluoroscopic position.? Motor stimulation was carried out at 2 Hz up to 5 volts with the absence of extremity activity.? This was repeated at level L5, S1 on right side.?? Sensory stimulation was carried out.? Concordant pain was realized at the above- mentioned sites.? Then radiofrequency lesioning was carried out times 90 seconds at 80 degrees times 2 lesions at each level.? The radiofrequency probe was removed prior to cannula removal.? The above-mentioned injectate was placed in 1 mL increments.? The needle was removed.? Insertion sites were covered.? The patient was taken to the postoperative recovery area and monitored for an appropriate length of time before being found suitable for discharge in the company of a responsible adult. Anesthesia: Local Surgeon: Almaz Brooke Pathology: none sent Condition: stable Disposition: no change
== END 2025-07-31 08:48 | disposition home or self-care (01) ==
PROVIDERS: PCP Family Medicine; Visit Provider Anesthesiology
DX: M47.816 Spondylosis without myelopathy or radiculopathy, lumbar region (principal); G89.29 Other chronic pain
CPT/HCPCS: 64635; 64636; J0665; J1010